=== PATIENT | male | born 1930 | race Caucasian/White ===

== ENCOUNTER 2016-08-02 06:20 | Inpatient (IN) ==
[2016-08-02] MEDS ORDERED: fentaNYL 100 MCG/2 ML VIAL IV ONE (07:23)
[2016-08-02] MEDS ORDERED: MIDAZOLAM 2 MG/2 ML VIAL IV ONE (07:23)
[2016-08-02] MEDS ORDERED: SODIUM CHLORIDE 0.45% 1,000 ML IV SCH (07:30)
[2016-08-02 07:44] LABS: Basophils % 0.3 % (0.0-0.8); Eosinophils # 0.2 10*3/uL (0.0-0.87); Hematocrit 26.9 VOL% (42.0-52.0); Hemoglobin 7.8 GM/DL (14.0-18.0); Immature Granulocytes % 0.3 %; Immature Granulocytes Absolute 0.02 #; Lymphocytes # 1.1 10*3/uL (1.4-4.0); Lymphocytes % 19.8 % (21.2-54.2); Mean Corpuscular Hemoglobin 26 PG (27-34); Mean Corpuscular Volume 87.9 FL (87-102); Mean Platelet Volume 8.7 FL (9.6-12.0); Monocytes # 0.7 10*3/uL (0.11-0.8); Monocytes % 12.7 % (1.7-12.7); Neutrophils # 3.6 10*3/uL (1.4-7.4); Neutrophils % 62.9 % (38.7-73.9); Platelet Count 308 T/CUMM (130-400); Red Blood Count 3.06 MC/CUMM (3.8-5.5); Red Cell Distribution Width 15.8 % (9.3-17.3); White Blood Count 5.8 T/CUMM (4-12)
[2016-08-02 07:56] LABS: PT Patient Result 10.3 SECS; Partial Thromboplastin Time 27.5 SECS (0-40)
[2016-08-02 08:22] LABS: Calcium 8.1 MG/DL (8.5-10.1); Osmolality,Calculated 283.3 MOS/KG (273-304); Potassium 4.2 MMOL/L (3.5-5.1)
[2016-08-02] MEDS ORDERED: DIAZEPAM 5 MG TABLET PO ONE (08:53)
--- NOTE | 2016-08-02 09:44 | IR History and Physical Update ---
IR Pre-Procedure - History and Physical H&P was reviewed, the patient examined and there: are no changes in the patients condition since last H&P was completed. Reason for procedure:: 86-year-old male, patient of Dr. Bernal, with ischemic changes right foot. Early tissue loss and nonhealing ulcers right great toe. Right calf claudication, less than 100 feet. 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 Presents for arteriogram and stenting. - Dictation Physical: refer to scanned H&P - Physical Exam Vital Signs: Last Vital Signs Temp 97.9 F 08/02/16 08:08 Pulse 66 08/02/16 08:08 Resp 20 08/02/16 08:08 BP 153/75 08/02/16 08:08 Pulse Ox 100 08/02/16 08:08 Mental Status: alert and oriented Peripheral pulses: 0: Common Femoral (R), 3+: Common Femoral (L) Wounds: Black eschar plantar aspect right great toe, discoloration of the tips of the first and second toes. - Sedation IR anesthesia plan for sedation: minimal ASA Class: III - Risks Risks: Procedures explained. Risks discussed include, but not limited to, the following:[Pain, bleeding, thrombosis, need for emergent surgery, inability to recanalize common iliac artery, need for f femorofemoral eal bypass graft] All questions answered. The following alternatives were discussed:[Femorofemoral bypass graft] Risks and benefits discussed with: patient Consent obtained from: patient Assessment and Plan - Time spent with patient Time spent with patient: Less than 30 minutes (1) Peripheral arterial disease Status: Acute Assessment and plan: Severe right lower extremity PAD with early tissue loss great toe. Plan: Abdominal aortogram with runoff. Attempt recanalization right common iliac artery with stenting. Current Visit: Yes
[2016-08-02] MEDS ORDERED: DIAZEPAM 5 MG TABLET ONE (11:23)
[2016-08-02] MEDS ORDERED: fentaNYL 100 MCG/2 ML VIAL ONE (13:19)
[2016-08-02] MEDS ORDERED: MIDAZOLAM 2 MG/2 ML VIAL ONE (13:19)
[2016-08-02] MEDS ORDERED: HEPARIN/NACL 0.9% 2 UNITS/ML 1,000 ML IV ONE ×2 (13:20→14:14)
[2016-08-02] MEDS ORDERED: HEPARIN 5,000 UNIT/1 ML VIAL ONE (13:55)
[2016-08-02] MEDS ORDERED: HEPARIN 5,000 UNIT/1 ML VIAL IV ONE (13:57)
--- NOTE | 2016-08-02 14:52 | Post Interventional Procedure ---
Pre-op diagnosis: Right common iliac artery occlusion Post-op diagnosis: same Procedure: recannulized right LEON w/ kissing bilateral LEON stents BLE runoff angio Contrast: Visi 320, 135 cc Flouroscopy: 7.9 min Radiologist: Juvenal Hutchison Anesthesia: conscious sedation Medications: Versed 1 mg, fentanyl 25 mcg Total Sedation Time: 59 min Specimens: none sent Estimated blood loss: none Complications: none Condition: stable Description/Findings: Recannalized right LEON, kissing stents both LEON w/ 12 x 60 Luminexx on the right , and a 12 x 40 Luminexx on the left Assessment and Plan - Time spent with patient Time spent with patient: Greater than 30 minutes (1) Peripheral arterial disease Status: Acute Assessment and plan: Severe right lower extremity PAD with early tissue loss great toe. Plan: Abdominal aortogram with runoff. Attempt recanalization right common iliac artery with stenting. Postop: Plavix 75 mg PO QD x 90 days Current Visit: Yes
--- NOTE | 2016-08-02 16:58 | Interventional Radiology Rpt ---
IR angio Ext BI, IR stent graft place iliac, IR stent graft place iliac Indication: Right common iliac artery occlusion. Right calf claudication, chronic ischemic changes right great toe with nonhealing dry gangrene ulcer. ABDOMINAL AORTOGRAM WITH BILATERAL LOWER EXTREMITY RUNOFF, BILATERAL COMMON ILIAC ARTERY STENTS Description: A formal timeout was performed. Maximum sterile barrier technique was instituted. Right common femoral artery is not palpable. Sonographic evaluation shows it to be patent and compressible. The right common femoral artery was accessed with a micropuncture needle using sonographic guidance. Captured sonographic image was obtained documenting needle position in the artery. Needle was exchanged over wire for a sheath. Retrograde arteriogram of the right pelvis was then performed confirming occlusion of the right common iliac artery. Kumpe catheter and Bentson wire were then used to carefully probe the occluded segment. With very little difficulty, the Kumpe catheter was advanced into the distal abdominal aorta, position confirmed with an arteriogram. Arteriogram performed showed total occlusion of the right common iliac artery with a small meniscus below the aortic bifurcation suggesting a single stent (nonkissing stent technique) may be adequate. The Kumpe catheter was removed over an Amplatz wire. Heparin 3000 units was administered. The occluded segment was crossed with a 12 x 60 mm Luminexx stent. The stent was partially deployed and then seated against the ostium of the right common iliac artery. The remainder of the stent was deployed at which point the stent migrated slightly cephalad flowering across 80% of the ostium of the left common iliac artery. The stent was then angioplastied with a 10 mm balloon during which time, gentle traction on the stent failed to draw it further into the common iliac artery. However, post angioplasty arteriogram was performed showing the stent to be widely patent with excellent inflow to the right femoral system now present. The left common femoral artery was then studied with ultrasound and shown to be patent and compressible. It was accessed with a micropuncture needle using sonographic guidance. Captured sonographic image documents the position of the needle. Needle was exchanged over a wire for a sheath. Using a Kumpe catheter and Bentson wire, the wire and catheter were advanced into the distal aorta remaining to the left of the leading edge of the earlier placed stent. The Kumpe catheter was removed and over a Bentson wire, the 10 mm balloon was partially inflated and advanced across the origin of the stent confirming that the wire is external to the stent and does not pass through an interstices. After removing the balloon, a 12 x 40 mm Luminexx stent was advanced from the left groin and deployed. Kissing angioplasty was then performed at the aortic bifurcation to secure both stents in satisfactory positioning. The element of the right common iliac artery stent that overshadows the left common iliac ostium was now shifted midline due to radial force from the newly placed left [employer] stent. Abdominal aortogram was then performed with runoff to the feet. Access at both groins was removed and hemostasis achieved with successfully deployed bilateral ProGlide closure devices. Palpable bilateral posterior tibial and dorsalis pedis pulses were present at the conclusion of the case. Contrast: Visipaque 320, 135 cc. Fluoroscopy: 7.9 minutes. Conscious sedation: Under physician supervision, Versed 1 mg, fentanyl 25 mcg were administered intravenously for conscious sedation. Vital signs, including pulse oximetry, heart rate and blood pressure, continuously monitored by nursing present in the room. Physicians spent 59 minutes [id number] sedation time with the patient. Impression: 1. Successful recanalization of right common iliac artery occlusion. Placement of kissing stents, 12 x 60 mm Luminexx on the right and 12 x 40 mm Luminexx on the left. 2. Widely patent femoropopliteal system bilaterally. In the left calf, three-vessel runoff to left foot is confirmed. In the right calf, there is proximal occlusion of the anterior tibialis artery but robust two-vessel inflow to the right foot is present via the peroneal and posterior tibialis arteries. 3. Successful deployment of bilateral Perclose devices in each groin for hemostasis. PROCEDURE INTERPRETED AT [facility] DEPARTMENT OF RADIOLOGY Final Report Signed by: Juvenal Hutchison M.D.
[2016-08-02 17:09] LABS: HIV Antigen/Antibody Result Nonreactive (Nonreactive); Hepatitis B Surface Ag Quant < 0.10 Index; Hepatitis B Surface Ag Result Negative (Negative); Hepatitis C Virus Ab Quant 0.09 Index; Hepatitis C Virus Ab Result Negative (Negative)
[2016-08-02] MEDS: CLOPIDOGREL 75 MG TABLET PO SCH (17:12)
[2016-08-02] MEDS ORDERED: CYCLOBENZAPRINE 10 MG TABLET PO PRN (19:59)
--- NOTE | 2016-08-02 20:19 | Family Practice History&Phys ---
Assessment and Plan (1) Peripheral arterial disease Status: Acute Assessment and plan: Patient is now status post recannulization right common iliac artery with excellent response. No complications noted Current Visit: Yes (2) Iron deficiency anemia Status: Acute Assessment and plan: We will order additional studies and start on iron therapy Current Visit: Yes (3) prostate carcinoma Status: Chronic Assessment and plan: Stable at present Current Visit: No (4) Acute on chronic renal failure Status: Chronic Assessment and plan: Stable at present Current Visit: No (5) CAD (coronary artery disease) Status: Chronic Assessment and plan: Stable on present medications Current Visit: No (6) History of coronary artery stent placement Status: Chronic Assessment and plan: Stable at present Current Visit: No (7) Hyperlipidemia Status: Chronic Assessment and plan: Stable on present medication Current Visit: No (8) hypertension Status: Chronic Assessment and plan: Stable on present medication Current Visit: No (9) urinary incontinence Status: Chronic Assessment and plan: Stable Current Visit: No History of Present Illness Chief complaint: Peripheral vascular disease and anemia History of present illness: Mr. Apodaca is a 86 year old male Patient 86-year-old white male well-known to me who was referred in for severe vascular insufficiency of the right leg. He is now status post recannulization procedure of the right common iliac artery by Dr. Hutchison. Procedure was successful and now has good pulses in right lower extremity. The patient has area of skin breakdown involving the right great toe the second and third digits on the right foot. He has an area of eschar formation over the solar aspect of the right great toe. The other areas are more superficial. No signs of infection. The patient was noted to have a change in his hemoglobin and hematocrit on admission. Most recent hemoglobin in the office was a 10.6 with hematocrit of 32.9. Hemoglobin today is a 7.8. Patient is complaining of some chronic abdominal pain. He has recently seen Dr. Yañez in his office. They elected not to do any further procedures but patient was not as anemic as he is at present. In view of degree of anemia will order additional studies and follow with Dr. Hutchison. Will recheck CBC in a.m. and obtain an abdominal CT. Will start wound care on areas of skin breakdown on right foot. Home Medications Medication Instructions Recorded Confirmed Type Aspirin [Ecotrin] 325 mg PO DAILY 01/02/15 08/02/16 History Carvedilol [Coreg] 12.5 mg PO BID 01/02/15 08/02/16 History Cyclobenzaprine [Flexeril] 10 mg PO BEDTIME PRN 01/02/15 08/02/16 History Diclofenac Sodium 75 mg PO BID 01/02/15 08/02/16 History Simvastatin [Zocor] 20 mg PO BEDTIME 01/02/15 08/02/16 History Fosinopril [Monopril] 20 mg PO DAILY 08/08/15 08/02/16 History Furosemide Tab [Lasix Tab] 20 mg PO DAILY 08/08/15 08/02/16 History amLODIPine [Norvasc] 5 mg PO DAILY 08/08/15 08/02/16 History Ranitidine Tab [Zantac Tab] 150 mg PO BID 03/11/16 08/02/16 History Omeprazole 40 mg PO DAILY 07/30/16 08/02/16 History Clopidogrel [Plavix] 75 mg PO DAILY #30 tablet 08/03/16 Rx Ferrous Sulfate Tab [Feosol 325 mg PO BID #60 tablet 08/03/16 Rx Original Tab] Folic Acid Tab 1 mg PO DAILY #30 tablet 08/03/16 Rx HYDROcodone/ACETAMIN 5-325 [[place] 2 tablet PO Q4H PRN #30 tablet 08/03/16 Rx 5-325] Mupirocin 2% Oint [Bactroban 2% 1 applic TOP BID #30 unit 08/03/16 Rx Oint] Allergies Allergy/AdvReac Type Severity Reaction Status Date / Time No Known Allergies Allergy Verified 07/30/16 15:05 Medical,Surgical,& Family Hx - Medical History Cardio: History of: CHF (/o lv syst dysfx), CAD (h/o coronary stents), Hypertension, MA (1987), Cardiovascular Problems (stents; 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 last visit 04/2016.) Neurology: History of: Vertigo (Cleared up at present) No history of: Seizures HEENT: History of: Ear Problem (HARD OF HEARING; JOHNATHON HEARING AIDS.), Eye Problem (WEARS GLASSES/Glasses), Dental Problems (UPPER IMPLANTS) No history of: Glaucoma, Oral Cancer, HEENT Problems Endocrine: History of: Dyslipidemia Rheumatology: History of;: Rheumatoid Arthritis Respiratory: No history of: Pneumonia (Pneum Vac 2014), Respiratory Problems (Flu Vac Jan 2016; SOB) Renal: History of: Renal Failure Genitourinary: History of: Bladder Problem (INCONTINENCE), Prostate Problems ( cancer) Gastrointestinal: History of: GERD, GI Problems (OCCASIONAL CONSTIPATION) Musculoskeletal: History of: Back/Neck Problems (NECK SPASMS), Degenerative Disk Disease, Musculoskeletal Problems (ARTHRITIS) No history of: Amputation Hematology: History of: Anemia Other: History of: Cancer (Prostate; Skin), Miscellaneous Medical Problems (PT STATES PAIN AND DISCOLORATION IN RT GREAT TOE AND 2ND TOE.) No history of: Anesthesia Reactions - Surgical History Cardiac Surgeries: Sugical HX of: Cardiac Catheterization (coronary stents x3) Thoracic Surgeries: Patient denies;: Organ Transplant, Lobectomy Neurologic Surgeries: Patient denies: Neurologic Surgery HEENT Surgeries: Patient denies: Eye Surgery (02/13/16 Sched for Cataract Lt ), Thyroid Surgery, Tonsilectomy & Adenoidectomy Abdominal Surgeries: Surgical HX of: Cholecystectomy (08/2015), Colonoscopy, EGD Patient denies: Abdominal Surgery, Appendectomy, Gastric Bypass Surgery, Hernia Repair Reproductive Surgeries: Surgical HX of;: Prostate Surgery (removed 1989) Orthopedic Surgeries: Surgical HX of;: Orthopedic Surgery (Rt Arm Fx) Patient denies;: Implanted Devices, Spinal Surgery, Total Hip Replacement, Total Knee Replacement - Family History Family History: Reports;: Family Cancer (dad lung), Family Heart Disease, Family Hypertension (FATHER) - Social History Smoking Status: Never smoker Frequency of Alcohol Use: None Type of Drug Use: None Marital Status: Lives With:: Spouse Functional capacity: independent ambulation Exam - Constitutional Vitals: Period Temp Pulse Resp BP Sys/Pickering Pulse Ox Last 24 Hr 97.9 F 64-80 14-20 126-154/58-81 92-100 General appearance: no acute distress - Head Head exam: Present: normal inspection - Eye Pupils: Present: QING - ENT ENT exam: Present: normal exam - Neck Neck exam: Present: normal inspection - Respiratory Respiratory exam: Present: clear to auscultation bilaterally - Cardiovascular Cardiovascular exam: Present: irregular rhythm - GI/Abdominal GI/Abdominal exam: Present: normal bowel sounds, psoas sign - Extremities Exam Extremities exam: Present: other (Full range of motion in all joints. Patient has an area of skin breakdown on the big toe second and third digit right foot) - Back Exam Back exam: Present: normal inspection - Neurological Exam Neurological exam: Present: alert, oriented X3 - Psychiatric Psychiatric exam: Present: normal affect - Skin Skin exam: Present: normal color Results - Labs CBC & BMP: 08/03/16 03:35 08/03/16 03:35
[2016-08-02] MEDS ORDERED: SIMVASTATIN 20 MG TABLET PO SCH (21:00)
[2016-08-02] MEDS ORDERED: ZALEPLON 5 MG CAPSULE PO SCH (21:00)
[2016-08-02] MEDS: DICLOFENAC SODIUM 75 MG TABLET PO SCH (21:35)
[2016-08-02] MEDS: CARVEDILOL 12.5 MG TABLET PO SCH (21:35)
[2016-08-03 04:31] LABS: Basophils % 0.6 % (0.0-0.8); Eosinophils # 0.2 10*3/uL (0.0-0.87); Eosinophils % 2.3 % (0.00-10.9); Hematocrit 26.2 VOL% (42.0-52.0); Hemoglobin 7.9 GM/DL (14.0-18.0); Immature Granulocytes % 0.6 %; Immature Granulocytes Absolute 0.04 #; Lymphocytes # 1.3 10*3/uL (1.4-4.0); Mean Corpuscular HGB Conc 30.2 GM/DL (32-36); Mean Corpuscular Hemoglobin 26 PG (27-34); Mean Corpuscular Volume 84.8 FL (87-102); Mean Platelet Volume 9.1 FL (9.6-12.0); Monocytes # 0.9 10*3/uL (0.11-0.8); Monocytes % 13.1 % (1.7-12.7); Neutrophils # 4.6 10*3/uL (1.4-7.4); Neutrophils % 65.4 % (38.7-73.9); Platelet Count 307 T/CUMM (130-400); Red Blood Count 3.09 MC/CUMM (3.8-5.5); Red Cell Distribution Width 15.7 % (9.3-17.3)
[2016-08-03 05:12] LABS: Alanine Aminotransferase 13 U/L (16-61); Albumin 2.4 G/DL (3.4-5.0); Alkaline Phosphatase 65 U/L (45-117); Aspartate Amino Transferase 12 U/L (0-37); Bilirubin,Total < 0.39 MG/DL (0.2-1.0); Blood Urea Nitrogen 17 MG/DL (7-18); Calcium 8.2 MG/DL (8.5-10.1); Cholesterol 107 MG/DL (50-200); Ferritin 20.9 ng/ml (26-388); Free T4 (Free Thyroxine) 0.94 NG/DL (0.76-1.46); Glucose 99 MG/DL (74-106); HDL Cholesterol 44 MG/DL (40-60); Osmolality,Calculated 284.1 MOS/KG (273-304); Potassium 3.9 MMOL/L (3.5-5.1); Risk Ratio 2.43; Sodium 142 MMOL/L (136-145); Total Protein 4.9 G/DL (6.4-8.3); Triglycerides 111 MG/DL (2-150); VLDL CHOLESTEROL 22.2 MG/DL
[2016-08-03 05:16] LABS: Folate 3.7 NG/ML (5.4-24.0); Vitamin B12 265 PG/ML (211-911)
[2016-08-03 08:23] LABS: Hemoglobin A1 (Alkaline) 97.5 % (96.5-98.5); Hemoglobin A2 (Alkaline) 2.5 % (1.5-3.5)
[2016-08-03] MEDS ORDERED: MUPIROCIN 2% OINT 22 GM TUBE TOP SCH (09:00)
[2016-08-03] MEDS ORDERED: ASPIRIN EC 325 MG TABLET PO SCH (09:00)
[2016-08-03] MEDS ORDERED: FOSINOPRIL 20 MG TABLET PO SCH (09:00)
[2016-08-03] MEDS ORDERED: amLODIPine 5 MG TABLET PO SCH (09:00)
[2016-08-03] MEDS ORDERED: COLLAGENASE OINT 30 GM TUBE TOP SCH (09:00)
[2016-08-03] MEDS ORDERED: FUROSEMIDE 20 MG TABLET PO SCH (09:00)
[2016-08-03] MEDS: CLOPIDOGREL 75 MG TABLET PO SCH (09:06)
[2016-08-03] MEDS: CARVEDILOL 12.5 MG TABLET PO SCH (09:07)
[2016-08-03] MEDS: DICLOFENAC SODIUM 75 MG TABLET PO SCH (09:07)
[2016-08-03 09:37] LABS: Sedimentation Rate-Westergren 73 MM/HR (0-20)
--- NOTE | 2016-08-03 09:59 | Progress Note ---
Assessment and Plan - Time spent with patient Time spent with patient: Less than 30 minutes (1) Peripheral arterial disease Status: Acute Assessment and plan: Severe right lower extremity PAD with early tissue loss great toe. Plan: Abdominal aortogram with runoff. Attempt recanalization right common iliac artery with stenting. Postop: Plavix 75 mg PO QD x 90 days 10:00 @ 08/03/16: From an IR standpoint, patient okay for discharge. Plavix 75 mg daily for 90 days minimum. Recommend outpatient wound care for issues regarding right great toe. High likelihood for some minimal tissue loss at the tip of the first and second toes. Please call with questions. Current Visit: Yes Family Medicine PN Sub Interval history: No adverse vascular events overnight. Tolerating oral intake, with mild abdominal pain this morning. GI to see. Anemia workup pending. Exam (Progress Note) - Constitutional Vitals: Period Temp Pulse Resp BP Sys/Pickering Pulse Ox Last 24 Hr 98.7 F-99.2 F 64-80 14-20 109-154/58-81 92-96 General appearance: normal weight, no acute distress - Head Head exam: Present: normal inspection, normocephalic - GI/Abdominal GI/Abdominal exam: Present: soft - Extremities Exam Extremities exam: Present: other (2+ right DP and PT pulse. Both groins are unremarkable.) Results - Labs CBC & BMP: 08/03/16 03:35 08/03/16 03:35 Lab Results: I have reviewed the past 24 hour labs
--- NOTE | 2016-08-03 13:26 | Discharge Summary ---
Hospital Course - Hospital Course Hospital Course: istory of present illness: Mr. Apodaca is a 86 year old male Patient 86-year-old white male well-known to me who was referred in for severe vascular insufficiency of the right leg. He is now status post recannulization procedure of the right common iliac artery by Dr. Hutchison. Procedure was successful and now has good pulses in right lower extremity. The patient has area of skin breakdown involving the right great toe the second and third digits on the right foot. He has an area of eschar formation over the solar aspect of the right great toe. The other areas are more superficial. No signs of infection. The patient was noted to have a change in his hemoglobin and hematocrit on admission. Most recent hemoglobin in the office was a 10.6 with hematocrit of 32.9. Hemoglobin today is a 7.8. Patient is complaining of some chronic abdominal pain. He has recently seen Dr. Yañez in his office. They elected not to do any further procedures but patient was not as anemic as he is at present. In view of degree of anemia will order additional studies and follow with Dr. Hutchison. Will recheck CBC in a.m. and obtain an abdominal CT. Will start wound care on areas of skin breakdown on right foot. Hospital course-patient was admitted and recannulization procedure was performed by Dr. Hutchison. Patient has had an with hematocrit of 26.2 . These are stable from yesterday. Excellent response has good peripheral pulses and extremity is warm. He was noted to have a increased anemia on this admission compared to my previous labs. I had ordered repeat labs and studies to help determine whether we need to do more aggressive evaluation of this. His a.m. hemoglobin is a 7.9. After reviewing other studies I feel the anemia is more likely secondary to a combination of iron deficiency and folate deficiency. Patient states that he has had very poor appetite because of his leg pain. States she has only been eating 1 meal a day and has had limited intake. This would also be compatible with findings. No evidence any bleeding. He actually saw Dr. Yañez in the last 3 weeks. His stools were negative and found no indication to do further GI studies. His other studies are unremarkable. Does have 3 cm area of eschar formation on the sole of the right great toe. Has some superficial skin breakdown on the dorsum of the right great toe and the dorsum of the second and third digit. I had planned on starting him on a topical debriding agent for the eschar formation. Patient has limited income and states he cannot afford this prescription. I feel these wounds will heal now that he has adequate blood supply. Will treat with antibiotics to prevent infection plan to recheck in the office on Saturday of next week. If necessary I will manually debrided the eschar formation and/or refer to surgery. Patient states he would prefer to give it time to heal which it should do on its own. Will have patient call or return to the emergency room condition worsening problems develop. Diagnosis - Discharge Diagnosis (1) Peripheral arterial disease Status: Acute (2) Iron deficiency anemia Status: Acute (3) Acute on chronic renal failure Status: Chronic (4) CAD (coronary artery disease) Status: Chronic (5) prostate carcinoma Status: Chronic (6) History of coronary artery stent placement Status: Chronic (7) Hyperlipidemia Status: Chronic (8) hypertension Status: Chronic (9) urinary incontinence Status: Chronic Discharge Plan - Discharge Data Disposition: Disch To Home/Self Care Condition at Discharge: Stable Discharge Diet: advance to your usual diet Activity: resume usual activities as tolerated Hygiene: no restrictions Weight Bearing at Discharge: weight bear as tolerated Contact your physician if you experience:: fever over 101, Redness or swelling, Shortness of breath - Discharge Medications New Clopidogrel [Plavix] 75 mg PO DAILY #30 tablet Ferrous Sulfate Tab [Feosol Original Tab] 325 mg PO BID #60 tablet HYDROcodone/ACETAMIN 5-325 [[place] 5-325] 2 tablet PO Q4H PRN #30 tablet PRN Reason: Pain Moderate (4-7) Mupirocin 2% Oint [Bactroban 2% Oint] 1 applic TOP BID #30 unit Folic Acid Tab 1 mg PO DAILY #30 tablet Continue Carvedilol [Coreg] 12.5 mg PO BID Diclofenac Sodium 75 mg PO BID Cyclobenzaprine [Flexeril] 10 mg PO BEDTIME PRN PRN Reason: Spasms Simvastatin [Zocor] 20 mg PO BEDTIME Aspirin [Ecotrin] 325 mg PO DAILY amLODIPine [Norvasc] 5 mg PO DAILY Furosemide Tab [Lasix Tab] 20 mg PO DAILY Fosinopril [Monopril] 20 mg PO DAILY Ranitidine Tab [Zantac Tab] 150 mg PO BID Omeprazole 40 mg PO DAILY Discontinued Cilostazol [Pletal] 100 mg PO BID - Follow Up or Referral Follow Up: Monico Meraz DO [Primary Care Provider] - (Have patient call clinic on Saturday to arrange follow-up next Saturday) - Forms/Instructions Exam - Constitutional Vitals: Period Temp Pulse Resp BP Sys/Pickering Pulse Ox Last 24 Hr 98.7 F-99.6 F 64-80 14-20 102-154/53-81 92-96 General appearance: no acute distress - Eye Pupils: Present: QING - ENT ENT exam: Present: normal exam - Neck Neck exam: Present: normal inspection - Respiratory Respiratory exam: Present: clear to auscultation bilaterally - Cardiovascular Cardiovascular exam: Present: irregular rhythm - GI/Abdominal GI/Abdominal exam: Present: normal bowel sounds, soft - Extremities Exam Extremities exam: Present: normal inspection - Back Exam Back exam: Present: normal inspection - Neurological Exam Neurological exam: Present: alert, oriented X3 - Psychiatric Psychiatric exam: Present: normal affect - Skin Skin exam: Present: normal color Discharge Results Procedures and tests throughout hospitalization: Pending Orders 08/02/16 20:01 Occult Blood Other Routine Labs on day of discharge: Labs from last 24 hours 08/03/16 08/03/16 08/03/16 03:35 03:35 03:34 WBC 7.0 RBC 3.09 L Hgb 7.9 L Hct 26.2 L MCV 84.8 L MCH 26 L MCHC 30.2 L RDW 15.7 Plt Count 307 MPV 9.1 L Neut % (Auto) 65.4 Lymph % (Auto) 18.0 L Jenkins % (Auto) 13.1 H Eos % (Auto) 2.3 Baso % (Auto) 0.6 Neut # (Auto) 4.6 Lymph # (Auto) 1.3 L Jenkins # (Auto) 0.9 H Eos # (Auto) 0.2 Baso # (Auto) 0.0 Immature Gran % 0.6 Nucleated RBC % 0.0 Immature Gran # 0.04 Nucleated RBCs # 0.00 Anemia Panel Interp ESR Westergren 73 H Absolute Retic 0.1 Percent Retic 2.5 H Retic Hgb Equivalent 28.4 Hemoglobin A1 Hemoglobin A2 Hgb ELP Interp Sodium 142 Potassium 3.9 Chloride 109 H Carbon Dioxide 25 Anion Gap 11.9 BUN 17 Creatinine 1.30 GFR Calculation 54 BUN/Creatinine Ratio 13.00 Glucose 99 Calculated Osmolality 284.1 Calcium 8.2 L Magnesium 2.0 Ferritin 20.9 L Total Bilirubin < 0.39 AST 12 ALT 13 L Alkaline Phosphatase 65 Total Protein 4.9 L Albumin 2.4 L Globulin 2.5 Albumin/Globulin Ratio 0.9 L Triglycerides 111 Cholesterol 107 LDL Cholesterol 51.0 VLDL Cholesterol 22.2 HDL Cholesterol 44 Heart Disease Risk Ratio 2.43 Vitamin B12 Folate Free T4 0.94 TSH 3rd Generation 3.210 Hep Bs Antigen Hepatitis C Antibody HIV 1&2 Antigen & Ab COY (IgG-AHG) Negative COY, Polyspecific Negative 08/03/16 08/02/16 03:34 Unknown WBC RBC Hgb Hct MCV MCH MCHC RDW Plt Count MPV Neut % (Auto) Lymph % (Auto) Jenkins % (Auto) Eos % (Auto) Baso % (Auto) Neut # (Auto) Lymph # (Auto) Jenkins # (Auto) Eos # (Auto) Baso # (Auto) Immature Gran % Nucleated RBC % Immature Gran # Nucleated RBCs # Anemia Panel Interp ESR Westergren Absolute Retic Percent Retic Retic Hgb Equivalent Hemoglobin A1 97.5 Hemoglobin A2 2.5 Hgb ELP Interp Sodium Potassium Chloride Carbon Dioxide Anion Gap BUN Creatinine GFR Calculation BUN/Creatinine Ratio Glucose Calculated Osmolality Calcium Magnesium Ferritin Total Bilirubin AST ALT Alkaline Phosphatase Total Protein Albumin Globulin Albumin/Globulin Ratio Triglycerides Cholesterol LDL Cholesterol VLDL Cholesterol HDL Cholesterol Heart Disease Risk Ratio Vitamin B12 265 Folate 3.7 L Free T4 TSH 3rd Generation Hep Bs Antigen Negative Hepatitis C Antibody Negative HIV 1&2 Antigen & Ab Nonreactive COY (IgG-AHG) COY, Polyspecific DS: Provider Primary care physician: Monico Meraz DO Consults: 08/02/16 15:43 Consult to Dietitian [CONS] Routine Reason for Dietitian: Other Discharging clinician: Monico Meraz DO
[2016-08-03] MEDS ORDERED: FOLIC ACID 1 MG TABLET PO SCH (13:30)
[2016-08-03] MEDS ORDERED: FERROUS SULFATE 325 MG TABLET PO SCH (13:30)
[2016-08-03 14:20] VITALS: BP 118/50
== END 2016-08-03 15:29 | disposition home or self-care (01) | DRG 253 ==
LOC: N.RAD 06:20 → N.SDSINP 06:21 → N.2E 15:26 → EDSDCBED 15:26 → N.2E 08-03 11:05 → N.RAD 08-03 15:24
PROVIDERS: ADMIT Family Medicine; ATTEND Radiology Diagnostic Radiology

== ENCOUNTER 2017-07-29 19:56 | Inpatient (IN) ==
[2017-07-29] MEDS ORDERED: ONDANSETRON 4 MG/2 ML VIAL IV STA (20:48)
[2017-07-29] MEDS ORDERED: FUROSEMIDE 100 MG/10 ML VIAL IV STA (20:48)
[2017-07-29] MEDS ORDERED: methylPREDNISolone SOD SUC 125 MG/2 ML VIAL IV STA (20:48)
[2017-07-29] MEDS ORDERED: LIDOCAINE 2% TOP JELLY 20 ML VIAL INTRAURETH ONE (20:52)
[2017-07-29] MEDS ORDERED: ALBUTEROL 2.5 MG/3 ML NEB RESP TX SCH (21:00)
[2017-07-29 21:23] LABS: Allen Test Positive
[2017-07-29 21:24] LABS: ABG Base Excess 5.5 MMOL/L (-2.5-2.5); ABG HCO3 31.2 MMOL/L (20-26); ABG Oxygen Saturation 43.7 % (95-100); ABG PCO2 50.5 MM HG (35-48); ABG PH 7.409 (7.35-7.45); ABG TCO2 32.8 MMOL/L (23-27)
[2017-07-29 21:26] LABS: ABG PO2 28.9 MM HG (80-95)
[2017-07-29] MEDS ORDERED: FUROSEMIDE 100 MG/10 ML VIAL ONE (21:30)
[2017-07-29] MEDS ORDERED: ONDANSETRON 4 MG/2 ML VIAL ONE (21:30)
[2017-07-29] MEDS ORDERED: methylPREDNISolone SOD SUC 125 MG/2 ML VIAL ONE (21:30)
[2017-07-29 21:31] LABS: Basophils % 0.4 % (0.0-0.8); Eosinophils % 0.4 % (0.00-10.9); Hematocrit 35.3 VOL% (42.0-52.0); Hemoglobin 11.5 GM/DL (14.0-18.0); Immature Granulocytes % 3.6 %; Immature Granulocytes Absolute 0.38 #; Lymphocytes # 0.7 10*3/uL (1.4-4.0); Mean Corpuscular HGB Conc 32.6 GM/DL (32-36); Mean Corpuscular Hemoglobin 31 PG (27-34); Mean Corpuscular Volume 94.9 FL (87-102); Mean Platelet Volume 9.5 FL (9.6-12.0); Monocytes # 0.5 10*3/uL (0.11-0.8); Monocytes % 4.4 % (1.7-12.7); Neutrophils # 8.8 10*3/uL (1.4-7.4); Neutrophils % 84.2 % (38.7-73.9); Platelet Count 106 T/CUMM (130-400); Red Blood Count 3.72 MC/CUMM (3.8-5.5); Red Cell Distribution Width 19.7 % (9.3-17.3); White Blood Count 10.5 T/CUMM (4-12)
[2017-07-29 21:43] LABS: PT Patient Result 10.5 SECS
[2017-07-29 21:55] LABS: Lactic Acid 1.9 MMOL/L (0.4-2.0)
[2017-07-29 21:56] LABS: Bilirubin,Total 0.7 MG/DL (0.2-1.0); Calcium 8.8 MG/DL (8.5-10.1); Osmolality,Calculated 288.8 MOS/KG (273-304); Potassium 4.1 MMOL/L (3.5-5.1); Total Protein 6.5 G/DL (6.4-8.3)
[2017-07-29 21:57] LABS: Troponin I Only 0.299 NG/ML (0.00-0.045)
[2017-07-29 22:09] LABS: Apearance,Urine CLEAR (Clear); Bacteria,Urine Occasional /HPF (Few); Bilirubin,Urine Negative (Negative); Blood, Urine Negative (Negative); Glucose,Urine (UA) Negative (Negative); Hyaline Casts,Urine 15 /LPF (0-3); Ketones,Urine Negative (Negative); Mucus,Urine Occasional /LPF (Occasional); Nitrite,Urine Negative (Negative); Protein,Urine Negative; RBC,Urine 1 /HPF (0-4); Squamous Epithelial Cell,Urine Occasional /HPF (0-10); Urine Color Yellow (Yellow); Urine Specific Gravity 1.015 (1.001-1.035); Urine Urobilinogen < 2.0 EU/DL (0.2-1.0); WBC,Urine 3 /HPF (0-6)
[2017-07-29] MEDS ORDERED: ACETYLCYSTEINE 600 MG CAPSULE ONE (22:38)
[2017-07-29] MEDS ORDERED: SODIUM BICARBONATE 50 MEQ/50 ML SYRINGE IV ONE (22:39)
[2017-07-29] MEDS ORDERED: SODIUM BICARBONATE 50 MEQ/50 ML VIAL IV STA (22:48)
[2017-07-29] MEDS ORDERED: SODIUM CHLORIDE 0.9% 500 ML IV STA (22:48)
[2017-07-29] MEDS ORDERED: ACETYLCYSTEINE 600 MG CAPSULE PO STA (22:48)
[2017-07-29] MEDS ORDERED: MIDAZOLAM 2 MG/2 ML VIAL ONE (23:52)
[2017-07-29] MEDS ORDERED: HEPARIN/NACL 0.9% 2 UNITS/ML 500 ML IV ONE (23:52)
[2017-07-29] MEDS ORDERED: HYDROmorphone 2 MG/1 ML VIAL ONE (23:52)
[2017-07-30] MEDS ORDERED: ALTEPLASE 2 MG VIAL ONE (00:57)
[2017-07-30] MEDS ORDERED: ALTEPLASE 6 MG in SODIUM CHLORIDE 0.9% 120 ML IV SCH (01:00)
[2017-07-30] MEDS ORDERED: ONDANSETRON 4 MG/2 ML VIAL IV PRN (01:17)
[2017-07-30] MEDS ORDERED: hydrOXYzine HCL 10 MG TABLET PO PRN (01:23)
[2017-07-30] MEDS ORDERED: CYCLOBENZAPRINE 10 MG TABLET PO PRN (01:23)
[2017-07-30] MEDS ORDERED: HEPARIN DRIP 25,000 UNITS/500 ML PREMIX IV SCH ×2 (01:30)
[2017-07-30] MEDS: SODIUM CHLORIDE 0.9% 1,000 ML IV SCH ×2 (01:30)
[2017-07-30 02:14] LABS: INR 1.1; PT Patient Result 11.3 SECS; Partial Thromboplastin Time 30.8 SECS (0-40)
[2017-07-30 05:20] LABS: INR 1.1; PT Patient Result 11.4 SECS
[2017-07-30] MEDS: SODIUM CHLORIDE 0.45% 1,000 ML IV SCH (08:00)
[2017-07-30 08:32] LABS: Basophils % 0.1 % (0.0-0.8); Hemoglobin 9.8 GM/DL (14.0-18.0); Immature Granulocytes % 2.2 %; Immature Granulocytes Absolute 0.17 #; Lymphocytes # 0.4 10*3/uL (1.4-4.0); Lymphocytes % 5.1 % (21.2-54.2); Mean Corpuscular HGB Conc 32.7 GM/DL (32-36); Mean Corpuscular Hemoglobin 31 PG (27-34); Mean Corpuscular Volume 94.9 FL (87-102); Mean Platelet Volume 9.8 FL (9.6-12.0); Monocytes # 0.2 10*3/uL (0.11-0.8); Monocytes % 2.6 % (1.7-12.7); Neutrophils # 6.9 10*3/uL (1.4-7.4); Red Blood Count 3.16 MC/CUMM (3.8-5.5); Red Cell Distribution Width 19.3 % (9.3-17.3); White Blood Count 7.7 T/CUMM (4-12)
[2017-07-30 08:41] LABS: Platelet Count 82 T/CUMM (130-400)
[2017-07-30 09:01] LABS: Giant Platelets Few; Hypochromasia 1+; Ovalocytes Slight; Platelet Estimate Decreased
[2017-07-30 09:14] LABS: Calcium 7.7 MG/DL (8.5-10.1); Osmolality,Calculated 291.5 MOS/KG (273-304); Potassium 3.6 MMOL/L (3.5-5.1)
[2017-07-30] MEDS: CARVEDILOL 12.5 MG TABLET PO SCH ×2 (10:00→21:16)
[2017-07-30] MEDS: AMIODARONE 200 MG TABLET PO SCH ×2 (10:00→21:16)
[2017-07-30] MEDS ORDERED: fentaNYL 100 MCG/2 ML VIAL IV ONE (11:35)
[2017-07-30] MEDS ORDERED: MIDAZOLAM 2 MG/2 ML VIAL IV ONE (11:35)
[2017-07-30] MEDS ORDERED: BISACODYL 5 MG TABLET PO PRN (14:07)
[2017-07-30] MEDS: FERROUS SULFATE 325 MG TABLET PO SCH (16:07)
[2017-07-30] MEDS: ASPIRIN EC 325 MG TABLET PO SCH (16:07)
[2017-07-30] MEDS: OMEGA 3 ACID ETHYL ESTERS 1 GM CAPSULE PO SCH (16:07)
[2017-07-30] MEDS: LEFLUNOMIDE 10 MG TABLET PO SCH (16:07)
[2017-07-30] MEDS: PANTOPRAZOLE 40 MG TABLET PO SCH (16:08)
[2017-07-30] MEDS: guaiFENesin/DM ER 600-30 MG TABLET PO PRN (16:12)
[2017-07-30] MEDS: MIRTAZAPINE 15 MG TABLET PO SCH (21:16)
[2017-07-30] MEDS: POTASSIUM CHLORIDE 20 MEQ TABLET PO PRN ×2 (21:16→23:13)
[2017-07-30] MEDS: APIXABAN 5 MG TABLET PO SCH (21:17)
[2017-07-30] MEDS: SIMVASTATIN 20 MG TABLET PO SCH (21:17)
[2017-07-31 02:27] LABS: Hematocrit 26.9 VOL% (42.0-52.0); Hemoglobin 8.7 GM/DL (14.0-18.0); Immature Granulocytes % 1.5 %; Immature Granulocytes Absolute 0.12 #; Lymphocytes # 0.4 10*3/uL (1.4-4.0); Lymphocytes % 4.8 % (21.2-54.2); Mean Corpuscular HGB Conc 32.3 GM/DL (32-36); Mean Corpuscular Hemoglobin 31 PG (27-34); Mean Corpuscular Volume 95.1 FL (87-102); Monocytes # 0.3 10*3/uL (0.11-0.8); Monocytes % 3.3 % (1.7-12.7); Neutrophils # 7.4 10*3/uL (1.4-7.4); Neutrophils % 90.4 % (38.7-73.9); Red Blood Count 2.83 MC/CUMM (3.8-5.5); White Blood Count 8.2 T/CUMM (4-12)
[2017-07-31 02:32] LABS: Platelet Count 96 T/CUMM (130-400)
[2017-07-31 02:57] LABS: Calcium 7.6 MG/DL (8.5-10.1); Osmolality,Calculated 299.3 MOS/KG (273-304); Potassium 3.8 MMOL/L (3.5-5.1)
[2017-07-31 03:00] LABS: Band Neutrophils 7 % (0-10); Lymphocytes 3 % (20-55); Myelocytes 1 %; Segmented Neutrophils 85 % (50-85)
[2017-07-31 03:01] LABS: Elliptocytes 1+; Hypochromasia 1+; Microcytosis 1+
[2017-07-31 03:02] LABS: Polychromasia Few
[2017-07-31 03:05] LABS: Platelet Estimate Decreased; Total Cells Counted 100
[2017-07-31] MEDS: SODIUM CHLORIDE 0.45% 1,000 ML IV SCH (04:51)
[2017-07-31] MEDS: SODIUM CHLORIDE 0.9% 1,000 ML IV SCH ×2 (04:51)
[2017-07-31] MEDS: FUROSEMIDE 40 MG/4 ML VIAL IV SCH (08:59)
[2017-07-31] MEDS: ASPIRIN EC 325 MG TABLET PO SCH (08:59)
[2017-07-31] MEDS: APIXABAN 5 MG TABLET PO SCH ×2 (09:00→20:32)
[2017-07-31] MEDS: PANTOPRAZOLE 40 MG TABLET PO SCH (09:00)
[2017-07-31] MEDS: FERROUS SULFATE 325 MG TABLET PO SCH (09:00)
[2017-07-31] MEDS: AMIODARONE 200 MG TABLET PO SCH ×2 (09:01→20:30)
[2017-07-31] MEDS: OMEGA 3 ACID ETHYL ESTERS 1 GM CAPSULE PO SCH (09:01)
[2017-07-31] MEDS: CARVEDILOL 12.5 MG TABLET PO SCH ×2 (09:01→20:31)
[2017-07-31] MEDS: LEFLUNOMIDE 10 MG TABLET PO SCH (09:01)
[2017-07-31] MEDS: FOSINOPRIL 10 MG TABLET PO SCH (09:21)
[2017-07-31] MEDS: ALBUTEROL 1.25 MG/3 ML NEB RESP TX SCH ×2 (12:11→19:39)
[2017-07-31] MEDS: MIRTAZAPINE 15 MG TABLET PO SCH (20:31)
[2017-07-31] MEDS: POTASSIUM CHLORIDE 20 MEQ TABLET PO PRN (20:31)
[2017-07-31] MEDS: SIMVASTATIN 20 MG TABLET PO SCH (20:32)
[2017-08-01] MEDS: ALBUTEROL 1.25 MG/3 ML NEB RESP TX SCH ×4 (01:03→20:07)
[2017-08-01 05:26] LABS: Basophils % 0.1 % (0.0-0.8); Eosinophils % 0.1 % (0.00-10.9); Hematocrit 28.3 VOL% (42.0-52.0); Immature Granulocytes % 1.5 %; Immature Granulocytes Absolute 0.11 #; Lymphocytes # 0.4 10*3/uL (1.4-4.0); Lymphocytes % 5.6 % (21.2-54.2); Mean Corpuscular HGB Conc 31.8 GM/DL (32-36); Mean Corpuscular Hemoglobin 30 PG (27-34); Mean Corpuscular Volume 95.3 FL (87-102); Mean Platelet Volume 9.8 FL (9.6-12.0); Monocytes # 0.1 10*3/uL (0.11-0.8); Monocytes % 1.9 % (1.7-12.7); Neutrophils # 6.9 10*3/uL (1.4-7.4); Neutrophils % 90.8 % (38.7-73.9); Platelet Count 111 T/CUMM (130-400); Red Blood Count 2.97 MC/CUMM (3.8-5.5); Red Cell Distribution Width 18.8 % (9.3-17.3); White Blood Count 7.6 T/CUMM (4-12)
[2017-08-01 05:47] LABS: Band Neutrophils 1 % (0-10); Elliptocytes Few; Eosinophils 2 % (0-10); Hypochromasia 1+; Lymphocytes 5 % (20-55); Platelet Estimate Decreased; Segmented Neutrophils 88 % (50-85); Total Cells Counted 100
[2017-08-01 05:48] LABS: Microcytosis 1+
[2017-08-01 05:58] LABS: Calcium 8.1 MG/DL (8.5-10.1); Potassium 4.1 MMOL/L (3.5-5.1)
[2017-08-01 06:02] LABS: Calcium 8.1 MG/DL (8.5-10.1); Osmolality,Calculated 296.1 MOS/KG (273-304)
[2017-08-01] MEDS: SODIUM CHLORIDE 0.9% 1,000 ML IV SCH ×2 (07:29)
[2017-08-01] MEDS: SODIUM CHLORIDE 0.45% 1,000 ML IV SCH (07:29)
[2017-08-01] MEDS: FUROSEMIDE 40 MG/4 ML VIAL IV SCH (08:42)
[2017-08-01] MEDS: LEFLUNOMIDE 10 MG TABLET PO SCH (08:43)
[2017-08-01] MEDS: FERROUS SULFATE 325 MG TABLET PO SCH (08:43)
[2017-08-01] MEDS: CARVEDILOL 12.5 MG TABLET PO SCH ×2 (08:43→21:16)
[2017-08-01] MEDS: OMEGA 3 ACID ETHYL ESTERS 1 GM CAPSULE PO SCH (08:43)
[2017-08-01] MEDS: AMIODARONE 200 MG TABLET PO SCH ×2 (08:43→21:16)
[2017-08-01] MEDS: ASPIRIN EC 325 MG TABLET PO SCH (08:43)
[2017-08-01] MEDS: APIXABAN 5 MG TABLET PO SCH ×2 (08:43→21:15)
[2017-08-01] MEDS: FOSINOPRIL 10 MG TABLET PO SCH (08:43)
[2017-08-01] MEDS: PANTOPRAZOLE 40 MG TABLET PO SCH (08:43)
[2017-08-01] MEDS: SIMVASTATIN 20 MG TABLET PO SCH (21:16)
[2017-08-01] MEDS: MIRTAZAPINE 15 MG TABLET PO SCH (21:16)
[2017-08-02] MEDS: ALBUTEROL 1.25 MG/3 ML NEB RESP TX SCH ×4 (00:39→19:44)
[2017-08-02 02:30] LABS: Basophils % 0.2 % (0.0-0.8); Eosinophils % 0.2 % (0.00-10.9); Hematocrit 28.6 VOL% (42.0-52.0); Hemoglobin 9.3 GM/DL (14.0-18.0); Immature Granulocytes % 0.9 %; Immature Granulocytes Absolute 0.06 #; Lymphocytes # 0.4 10*3/uL (1.4-4.0); Mean Corpuscular HGB Conc 32.5 GM/DL (32-36); Mean Corpuscular Hemoglobin 31 PG (27-34); Mean Platelet Volume 9.7 FL (9.6-12.0); Monocytes # 0.2 10*3/uL (0.11-0.8); Monocytes % 2.4 % (1.7-12.7); Neutrophils # 5.8 10*3/uL (1.4-7.4); Neutrophils % 90.3 % (38.7-73.9); Platelet Count 121 T/CUMM (130-400); Red Blood Count 3.01 MC/CUMM (3.8-5.5); Red Cell Distribution Width 18.6 % (9.3-17.3); White Blood Count 6.4 T/CUMM (4-12)
[2017-08-02 02:48] LABS: Osmolality,Calculated 294.3 MOS/KG (273-304); Potassium 3.9 MMOL/L (3.5-5.1)
[2017-08-02 02:49] LABS: Calcium 8.3 MG/DL (8.5-10.1); Osmolality,Calculated 294.3 MOS/KG (273-304)
[2017-08-02] MEDS: SODIUM CHLORIDE 0.9% 1,000 ML IV SCH ×2 (02:52)
[2017-08-02] MEDS: SODIUM CHLORIDE 0.45% 1,000 ML IV SCH (02:52)
[2017-08-02] MEDS ORDERED: LIDOCAINE 2% 20 ML VIAL RESP TX ONE (08:30)
[2017-08-02] MEDS ORDERED: LIDOCAINE 2% VISCOUS 100 ML BOTTLE SWISH/SPIT ONE (08:30)
[2017-08-02] MEDS ORDERED: LIDOCAINE 1% 20 ML VIAL MISC INJ ONE (08:30)
[2017-08-02] MEDS ORDERED: ASPIRIN CHEW 81 MG TABLET PO ONE (11:19)
[2017-08-02] MEDS: FERROUS SULFATE 325 MG TABLET PO SCH (11:21)
[2017-08-02] MEDS: OMEGA 3 ACID ETHYL ESTERS 1 GM CAPSULE PO SCH (11:21)
[2017-08-02] MEDS: APIXABAN 5 MG TABLET PO SCH ×2 (11:21→21:54)
[2017-08-02] MEDS: PANTOPRAZOLE 40 MG TABLET PO SCH (11:21)
[2017-08-02] MEDS: AMIODARONE 200 MG TABLET PO SCH ×2 (11:22→21:55)
[2017-08-02] MEDS: LEFLUNOMIDE 10 MG TABLET PO SCH (11:22)
[2017-08-02] MEDS: CARVEDILOL 12.5 MG TABLET PO SCH ×2 (11:22→21:37)
[2017-08-02] MEDS: FUROSEMIDE 40 MG/4 ML VIAL IV SCH (11:23)
[2017-08-02] MEDS: ASPIRIN EC 325 MG TABLET PO SCH (11:24)
[2017-08-02] MEDS: FOSINOPRIL 10 MG TABLET PO SCH (11:35)
[2017-08-02] MEDS: guaiFENesin/DM ER 600-30 MG TABLET PO PRN (13:51)
[2017-08-02] MEDS ORDERED: TUBERCULIN SKIN TEST 0.1 ML SYRINGE INTRADERM ONE (17:13)
[2017-08-02] MEDS: SIMVASTATIN 20 MG TABLET PO SCH (21:54)
[2017-08-02] MEDS: MIRTAZAPINE 15 MG TABLET PO SCH (21:54)
[2017-08-03] MEDS: ALBUTEROL 1.25 MG/3 ML NEB RESP TX SCH ×4 (00:54→20:23)
[2017-08-03 04:47] LABS: Basophils % 0.3 % (0.0-0.8); Eosinophils % 0.3 % (0.00-10.9); Hematocrit 30.2 VOL% (42.0-52.0); Hemoglobin 9.6 GM/DL (14.0-18.0); Immature Granulocytes % 0.8 %; Immature Granulocytes Absolute 0.06 #; Lymphocytes # 0.4 10*3/uL (1.4-4.0); Lymphocytes % 5.6 % (21.2-54.2); Mean Corpuscular HGB Conc 31.8 GM/DL (32-36); Mean Corpuscular Hemoglobin 30 PG (27-34); Mean Platelet Volume 9.6 FL (9.6-12.0); Monocytes # 0.2 10*3/uL (0.11-0.8); Monocytes % 2.5 % (1.7-12.7); Neutrophils % 90.5 % (38.7-73.9); Platelet Count 147 T/CUMM (130-400); Red Blood Count 3.18 MC/CUMM (3.8-5.5); Red Cell Distribution Width 18.2 % (9.3-17.3); White Blood Count 7.7 T/CUMM (4-12)
[2017-08-03 05:08] LABS: Calcium 8.5 MG/DL (8.5-10.1); Osmolality,Calculated 290.5 MOS/KG (273-304); Potassium 3.6 MMOL/L (3.5-5.1)
[2017-08-03 05:44] LABS: Band Neutrophils 8 % (0-10); Elliptocytes Few; Hypochromasia 1+; Lymphocytes 4 % (20-55); Platelet Estimate Normal; Segmented Neutrophils 84 % (50-85); Total Cells Counted 100
[2017-08-03 05:45] LABS: Microcytosis Slight
[2017-08-03] MEDS: FUROSEMIDE 40 MG TABLET PO SCH (08:55)
[2017-08-03] MEDS: AMIODARONE 200 MG TABLET PO SCH ×2 (08:55→21:08)
[2017-08-03] MEDS: FERROUS SULFATE 325 MG TABLET PO SCH (08:55)
[2017-08-03] MEDS: ASPIRIN EC 81 MG TABLET PO SCH (08:55)
[2017-08-03] MEDS: APIXABAN 5 MG TABLET PO SCH ×2 (08:55→21:09)
[2017-08-03] MEDS: CARVEDILOL 12.5 MG TABLET PO SCH ×2 (08:55→21:09)
[2017-08-03] MEDS: OMEGA 3 ACID ETHYL ESTERS 1 GM CAPSULE PO SCH (08:56)
[2017-08-03] MEDS: PANTOPRAZOLE 40 MG TABLET PO SCH (08:56)
[2017-08-03] MEDS: FOSINOPRIL 10 MG TABLET PO SCH (08:56)
[2017-08-03] MEDS: LEFLUNOMIDE 10 MG TABLET PO SCH (11:10)
[2017-08-03] MEDS: MIRTAZAPINE 15 MG TABLET PO SCH (21:08)
[2017-08-03] MEDS: SIMVASTATIN 20 MG TABLET PO SCH (21:08)
[2017-08-04] MEDS: guaiFENesin/DM ER 600-30 MG TABLET PO PRN ×2 (00:01→08:50)
[2017-08-04] MEDS: ALBUTEROL 1.25 MG/3 ML NEB RESP TX SCH ×4 (00:54→21:16)
[2017-08-04] MEDS: FUROSEMIDE 40 MG TABLET PO SCH (08:47)
[2017-08-04] MEDS: LEFLUNOMIDE 10 MG TABLET PO SCH (08:47)
[2017-08-04] MEDS: CARVEDILOL 12.5 MG TABLET PO SCH ×2 (08:47→21:13)
[2017-08-04] MEDS: PANTOPRAZOLE 40 MG TABLET PO SCH (08:48)
[2017-08-04] MEDS: FOSINOPRIL 10 MG TABLET PO SCH (08:48)
[2017-08-04] MEDS: OMEGA 3 ACID ETHYL ESTERS 1 GM CAPSULE PO SCH (08:48)
[2017-08-04] MEDS: FERROUS SULFATE 325 MG TABLET PO SCH (08:48)
[2017-08-04] MEDS: AMIODARONE 200 MG TABLET PO SCH ×2 (08:48→21:12)
[2017-08-04] MEDS: APIXABAN 5 MG TABLET PO SCH ×2 (08:48→21:13)
[2017-08-04] MEDS: ASPIRIN EC 81 MG TABLET PO SCH (08:48)
[2017-08-04] MEDS: SIMVASTATIN 20 MG TABLET PO SCH (21:12)
[2017-08-04] MEDS: MIRTAZAPINE 15 MG TABLET PO SCH (21:12)
[2017-08-05] MEDS: guaiFENesin/DM ER 600-30 MG TABLET PO PRN (02:54)
[2017-08-05] MEDS: ALBUTEROL 1.25 MG/3 ML NEB RESP TX SCH ×2 (03:28→07:00)
[2017-08-05] MEDS: LEFLUNOMIDE 10 MG TABLET PO SCH (08:51)
[2017-08-05] MEDS: APIXABAN 5 MG TABLET PO SCH (08:52)
[2017-08-05] MEDS: OMEGA 3 ACID ETHYL ESTERS 1 GM CAPSULE PO SCH (08:52)
[2017-08-05] MEDS: CARVEDILOL 12.5 MG TABLET PO SCH (08:52)
[2017-08-05] MEDS: PANTOPRAZOLE 40 MG TABLET PO SCH (08:52)
[2017-08-05] MEDS: FOSINOPRIL 10 MG TABLET PO SCH (08:52)
[2017-08-05] MEDS: FUROSEMIDE 40 MG TABLET PO SCH (08:53)
[2017-08-05] MEDS: AMIODARONE 200 MG TABLET PO SCH (08:53)
[2017-08-05] MEDS: FERROUS SULFATE 325 MG TABLET PO SCH (08:53)
[2017-08-05] MEDS: ASPIRIN EC 81 MG TABLET PO SCH (08:53)
[2017-08-05 12:00] VITALS: BP 98/59
[2017-08-05] MEDS ORDERED: PHENOL 1.4% THROAT SPRAY 177 ML BOTTLE PO PRN (12:55)
[2017-08-05] MEDS ORDERED: AMOXICILLIN/CLAV 875 MG TABLET PO SCH (21:00)
== END 2017-08-05 14:17 | DRG 166 ==
LOC: EDUNIT# 19:56 → N.ED 19:56 → N.CC 23:55 → N.TELEN 08-03 03:40
PROVIDERS: ADMIT Internal Medicine Cardiovascular Disease; ATTEND Internal Medicine Cardiovascular Disease

== ENCOUNTER 2017-10-26 09:53 | Inpatient (IN) ==
[2017-10-26 10:51] LABS: Basophils % 0.1 % (0.0-0.8); Eosinophils % 0.1 % (0.00-10.9); Hematocrit 32.8 VOL% (42.0-52.0); Hemoglobin 10.3 GM/DL (14.0-18.0); Immature Granulocytes % 1.6 %; Immature Granulocytes Absolute 0.19 #; Lymphocytes # 0.8 10*3/uL (1.4-4.0); Lymphocytes % 6.5 % (21.2-54.2); Mean Corpuscular HGB Conc 31.4 GM/DL (32-36); Mean Corpuscular Hemoglobin 31 PG (27-34); Mean Corpuscular Volume 99.7 FL (87-102); Mean Platelet Volume 9.2 FL (9.6-12.0); Monocytes # 0.4 10*3/uL (0.11-0.8); Monocytes % 3.1 % (1.7-12.7); NRBC # 0.02 10*3/uL; Neutrophils # 10.4 10*3/uL (1.4-7.4); Neutrophils % 88.6 % (38.7-73.9); Platelet Count 242 T/CUMM (130-400); Red Blood Count 3.29 MC/CUMM (3.8-5.5); Red Cell Distribution Width 16.1 % (9.3-17.3); White Blood Count 11.7 T/CUMM (4-12)
[2017-10-26 11:06] LABS: Albumin 2.6 G/DL (3.4-5.0); Bilirubin,Total 0.4 MG/DL (0.2-1.0); Calcium 8.2 MG/DL (8.5-10.1); Osmolality,Calculated 290.5 MOS/KG (273-304); Potassium 3.4 MMOL/L (3.5-5.1); Total Protein 6.3 G/DL (6.4-8.3)
[2017-10-26 11:10] LABS: Troponin I Only 0.128 NG/ML (0.00-0.045)
[2017-10-27 05:31] LABS: Basophils % 0.1 % (0.0-0.8); Eosinophils # 0.1 10*3/uL (0.0-0.87); Eosinophils % 1.4 % (0.00-10.9); Hematocrit 30.6 VOL% (42.0-52.0); Hemoglobin 9.5 GM/DL (14.0-18.0); Immature Granulocytes % 1.6 %; Immature Granulocytes Absolute 0.11 #; Lymphocytes # 0.8 10*3/uL (1.4-4.0); Lymphocytes % 11.2 % (21.2-54.2); Mean Corpuscular Hemoglobin 32 PG (27-34); Mean Corpuscular Volume 101.3 FL (87-102); Mean Platelet Volume 9.5 FL (9.6-12.0); Monocytes # 0.2 10*3/uL (0.11-0.8); Neutrophils # 5.8 10*3/uL (1.4-7.4); Neutrophils % 82.7 % (38.7-73.9); Platelet Count 213 T/CUMM (130-400); Red Blood Count 3.02 MC/CUMM (3.8-5.5)
[2017-10-27 06:01] LABS: Alanine Aminotransferase 15 U/L (16-61); Albumin 2.2 G/DL (3.4-5.0); Alkaline Phosphatase 52 U/L (45-117); Aspartate Amino Transferase 11 U/L (0-37); Bilirubin,Total < 0.39 MG/DL (0.2-1.0); Blood Urea Nitrogen 33 MG/DL (7-18); Glucose 110 MG/DL (74-106); Osmolality,Calculated 288.3 MOS/KG (273-304); Potassium 4.4 MMOL/L (3.5-5.1); Sodium 141 MMOL/L (136-145); Total Protein 5.6 G/DL (6.4-8.3)
[2017-10-29 04:54] LABS: Basophils % 0.1 % (0.0-0.8); Eosinophils # 0.1 10*3/uL (0.0-0.87); Hemoglobin 9.7 GM/DL (14.0-18.0); Immature Granulocytes Absolute 0.19 #; Lymphocytes # 0.8 10*3/uL (1.4-4.0); Lymphocytes % 7.8 % (21.2-54.2); Mean Corpuscular HGB Conc 32.3 GM/DL (32-36); Mean Corpuscular Hemoglobin 31 PG (27-34); Mean Corpuscular Volume 97.1 FL (87-102); Mean Platelet Volume 9.6 FL (9.6-12.0); Monocytes # 0.3 10*3/uL (0.11-0.8); Monocytes % 2.9 % (1.7-12.7); Neutrophils # 8.3 10*3/uL (1.4-7.4); Neutrophils % 86.2 % (38.7-73.9); Platelet Count 219 T/CUMM (130-400); Red Blood Count 3.09 MC/CUMM (3.8-5.5); Red Cell Distribution Width 15.9 % (9.3-17.3); White Blood Count 9.6 T/CUMM (4-12)
[2017-10-29 05:18] LABS: Calcium 8.2 MG/DL (8.5-10.1); Osmolality,Calculated 282.8 MOS/KG (273-304)
[2017-10-31 18:19] VITALS: BP 114/59
== END 2017-10-31 16:04 | disposition home health service (06) | DRG 200 ==
LOC: N.ED 09:53 → N.EDINP 13:10 → N.TELEN 14:11
PROVIDERS: ADMIT Hospitalist; ATTEND Family Medicine

== ENCOUNTER 2017-11-01 15:46 | Inpatient (IN) ==
[2017-11-01] MEDS ORDERED: SODIUM CHLORIDE 0.9% 500 ML IV STA (16:31)
[2017-11-01 17:19] LABS: Basophils % 0.3 % (0.0-0.8); Eosinophils # 0.1 10*3/uL (0.0-0.87); Eosinophils % 0.8 % (0.00-10.9); Hematocrit 33.8 VOL% (42.0-52.0); Hemoglobin 10.6 GM/DL (14.0-18.0); Immature Granulocytes % 4.4 %; Immature Granulocytes Absolute 0.44 #; Lymphocytes # 0.5 10*3/uL (1.4-4.0); Lymphocytes % 4.7 % (21.2-54.2); Mean Corpuscular HGB Conc 31.4 GM/DL (32-36); Mean Corpuscular Hemoglobin 32 PG (27-34); Mean Corpuscular Volume 100.6 FL (87-102); Mean Platelet Volume 9.1 FL (9.6-12.0); Monocytes # 0.2 10*3/uL (0.11-0.8); Monocytes % 1.6 % (1.7-12.7); Neutrophils # 8.9 10*3/uL (1.4-7.4); Neutrophils % 88.2 % (38.7-73.9); Platelet Count 295 T/CUMM (130-400); Red Blood Count 3.36 MC/CUMM (3.8-5.5); Red Cell Distribution Width 15.2 % (9.3-17.3); White Blood Count 10.1 T/CUMM (4-12)
[2017-11-01 17:28] LABS: PT Patient Result 10.9 SECS
[2017-11-01 17:51] LABS: Albumin 2.3 G/DL (3.4-5.0); Bilirubin,Total 0.5 MG/DL (0.2-1.0); Calcium 8.3 MG/DL (8.5-10.1); Osmolality,Calculated 287.5 MOS/KG (273-304); Potassium 3.6 MMOL/L (3.5-5.1); Total Protein 6.8 G/DL (6.4-8.3)
[2017-11-01 18:09] LABS: Band Neutrophils 4 % (0-10); Eosinophils 1 % (0-10); Lymphocytes 7 % (20-55); Platelet Estimate Normal; Segmented Neutrophils 88 % (50-85)
[2017-11-01 18:10] LABS: Hypochromasia Slight; Macrocytosis Slight; Total Cells Counted 100
[2017-11-01 19:13] LABS: Apearance,Urine CLEAR (Clear); Bilirubin,Urine Negative (Negative); Blood, Urine Negative (Negative); Glucose,Urine (UA) Negative (Negative); Ketones,Urine Negative (Negative); Mucus,Urine Occasional /LPF (Occasional); Nitrite,Urine Negative (Negative); Protein,Urine Negative; RBC,Urine 1 /HPF (0-4); Squamous Epithelial Cell,Urine Occasional /HPF (0-10); Urine Color Yellow (Yellow); Urine Specific Gravity 1.008 (1.001-1.035); Urine Urobilinogen < 2.0 EU/DL (0.2-1.0); WBC,Urine 2 /HPF (0-6)
[2017-11-01] MEDS ORDERED: ACETAMINOPHEN 325 MG TABLET PO PRN (22:21)
[2017-11-01] MEDS ORDERED: ONDANSETRON 4 MG/2 ML VIAL IV PRN (22:21)
[2017-11-01] MEDS: SODIUM CHLORIDE 0.9% 1,000 ML IV SCH (22:41)
[2017-11-01] MEDS: DOCUSATE SODIUM 100 MG CAPSULE PO SCH (22:42)
[2017-11-01 23:36] LABS: Basophils % 0.4 % (0.0-0.8); Eosinophils # 0.1 10*3/uL (0.0-0.87); Eosinophils % 0.9 % (0.00-10.9); Immature Granulocytes % 2.6 %; Lymphocytes # 0.6 10*3/uL (1.4-4.0); Lymphocytes % 7.5 % (21.2-54.2); Mean Corpuscular Hemoglobin 31 PG (27-34); Mean Corpuscular Volume 100.3 FL (87-102); Monocytes # 0.3 10*3/uL (0.11-0.8); Monocytes % 3.6 % (1.7-12.7); Neutrophils # 6.7 10*3/uL (1.4-7.4); Platelet Count 233 T/CUMM (130-400); Red Blood Count 2.89 MC/CUMM (3.8-5.5); Red Cell Distribution Width 15.2 % (9.3-17.3); White Blood Count 7.8 T/CUMM (4-12)
[2017-11-02 00:06] LABS: Alanine Aminotransferase 27 U/L (16-61); Albumin 1.8 G/DL (3.4-5.0); Alkaline Phosphatase 71 U/L (45-117); Aspartate Amino Transferase 25 U/L (0-37); Bilirubin,Total < 0.39 MG/DL (0.2-1.0); Blood Urea Nitrogen 38 MG/DL (7-18); Calcium 8.3 MG/DL (8.5-10.1); Glucose 172 MG/DL (74-106); Osmolality,Calculated 291.4 MOS/KG (273-304); Potassium 3.5 MMOL/L (3.5-5.1); Sodium 140 MMOL/L (136-145); Total Protein 5.6 G/DL (6.4-8.3)
[2017-11-02 06:26] LABS: Basophils % 0.3 % (0.0-0.8); Eosinophils # 0.1 10*3/uL (0.0-0.87); Eosinophils % 1.8 % (0.00-10.9); Hemoglobin 8.5 GM/DL (14.0-18.0); Immature Granulocytes % 2.8 %; Immature Granulocytes Absolute 0.17 #; Lymphocytes # 0.6 10*3/uL (1.4-4.0); Lymphocytes % 10.1 % (21.2-54.2); Mean Corpuscular HGB Conc 31.5 GM/DL (32-36); Mean Corpuscular Hemoglobin 32 PG (27-34); Monocytes # 0.2 10*3/uL (0.11-0.8); Monocytes % 3.4 % (1.7-12.7); Neutrophils % 81.6 % (38.7-73.9); Platelet Count 213 T/CUMM (130-400); Red Cell Distribution Width 15.3 % (9.3-17.3); White Blood Count 6.2 T/CUMM (4-12)
[2017-11-02 06:58] LABS: Alanine Aminotransferase 26 U/L (16-61); Albumin 1.7 G/DL (3.4-5.0); Alkaline Phosphatase 69 U/L (45-117); Aspartate Amino Transferase 24 U/L (0-37); Bilirubin,Total < 0.39 MG/DL (0.2-1.0); Blood Urea Nitrogen 35 MG/DL (7-18); Glucose 115 MG/DL (74-106); Osmolality,Calculated 291.1 MOS/KG (273-304); Potassium 3.5 MMOL/L (3.5-5.1); Sodium 142 MMOL/L (136-145); Total Protein 5.3 G/DL (6.4-8.3)
[2017-11-02] MEDS ORDERED: hydrOXYzine HCL 10 MG TABLET PO PRN (08:06)
[2017-11-02] MEDS ORDERED: NITROGLYCERIN SL 0.4 MG TABLET SL PRN (08:06)
[2017-11-02] MEDS: PANTOPRAZOLE 40 MG TABLET PO SCH (10:30)
[2017-11-02] MEDS: AMIODARONE 200 MG TABLET PO SCH (10:30)
[2017-11-02] MEDS: DICLOFENAC 1% GEL 100 GM TUBE TOP SCH ×2 (10:32→14:50)
[2017-11-02] MEDS: predniSONE 5 MG TABLET PO SCH (10:32)
[2017-11-02] MEDS: POTASSIUM CHLORIDE 10 MEQ TABLET PO SCH (10:33)
[2017-11-02] MEDS: DOCUSATE SODIUM 100 MG CAPSULE PO SCH ×2 (10:34→20:36)
[2017-11-02] MEDS: ASPIRIN EC 81 MG TABLET PO SCH (10:34)
[2017-11-02] MEDS: APIXABAN 5 MG TABLET PO SCH ×2 (10:34→20:36)
[2017-11-02] MEDS: CARVEDILOL 12.5 MG TABLET PO SCH ×2 (10:35→20:36)
[2017-11-02] MEDS: FUROSEMIDE 40 MG TABLET PO SCH (10:35)
[2017-11-02] MEDS: LEFLUNOMIDE 10 MG TABLET PO SCH (10:37)
[2017-11-02] MEDS: FOSINOPRIL 10 MG TABLET PO SCH (10:37)
[2017-11-02] MEDS: SODIUM CHLORIDE 0.9% 1,000 ML IV SCH ×2 (18:00→20:36)
[2017-11-02] MEDS ORDERED: DICLOFENAC 1% GEL 100 GM TUBE TOP PRN (18:12)
[2017-11-02] MEDS: FUROSEMIDE 20 MG TABLET PO SCH (20:35)
[2017-11-02] MEDS: SIMVASTATIN 20 MG TABLET PO SCH (20:35)
[2017-11-03 03:50] LABS: Basophils % 0.2 % (0.0-0.8); Eosinophils # 0.1 10*3/uL (0.0-0.87); Eosinophils % 1.1 % (0.00-10.9); Hematocrit 25.6 VOL% (42.0-52.0); Hemoglobin 7.8 GM/DL (14.0-18.0); Immature Granulocytes % 3.4 %; Immature Granulocytes Absolute 0.19 #; Lymphocytes # 0.6 10*3/uL (1.4-4.0); Lymphocytes % 10.1 % (21.2-54.2); Mean Corpuscular HGB Conc 30.5 GM/DL (32-36); Mean Corpuscular Hemoglobin 31 PG (27-34); Mean Corpuscular Volume 102.8 FL (87-102); Monocytes # 0.2 10*3/uL (0.11-0.8); Monocytes % 3.1 % (1.7-12.7); Neutrophils # 4.6 10*3/uL (1.4-7.4); Neutrophils % 82.1 % (38.7-73.9); Platelet Count 208 T/CUMM (130-400); Red Blood Count 2.49 MC/CUMM (3.8-5.5); Red Cell Distribution Width 15.2 % (9.3-17.3); White Blood Count 5.5 T/CUMM (4-12)
[2017-11-03 04:18] LABS: Calcium 7.6 MG/DL (8.5-10.1); Potassium 3.8 MMOL/L (3.5-5.1)
[2017-11-03] MEDS: APIXABAN 5 MG TABLET PO SCH ×2 (09:29→21:12)
[2017-11-03] MEDS: AMIODARONE 200 MG TABLET PO SCH (09:29)
[2017-11-03] MEDS: POTASSIUM CHLORIDE 10 MEQ TABLET PO SCH (09:29)
[2017-11-03] MEDS: DOCUSATE SODIUM 100 MG CAPSULE PO SCH ×2 (09:29→21:10)
[2017-11-03] MEDS: LEFLUNOMIDE 10 MG TABLET PO SCH (09:29)
[2017-11-03] MEDS: CARVEDILOL 12.5 MG TABLET PO SCH ×2 (09:30→21:10)
[2017-11-03] MEDS: FUROSEMIDE 40 MG TABLET PO SCH (09:30)
[2017-11-03] MEDS: PANTOPRAZOLE 40 MG TABLET PO SCH (09:31)
[2017-11-03] MEDS: FOSINOPRIL 10 MG TABLET PO SCH (09:31)
[2017-11-03] MEDS: ASPIRIN EC 81 MG TABLET PO SCH (09:32)
[2017-11-03] MEDS: predniSONE 5 MG TABLET PO SCH (09:33)
[2017-11-03] MEDS: DICLOFENAC 1% GEL 100 GM TUBE TOP SCH (09:34)
[2017-11-03] MEDS: SODIUM CHLORIDE 0.9% 1,000 ML IV SCH ×2 (16:22→16:55)
[2017-11-03] MEDS ORDERED: FUROSEMIDE 20 MG/2 ML VIAL IV ONE (16:37)
[2017-11-03 16:49] LABS: Basophils % 0.3 % (0.0-0.8); Eosinophils # 0.1 10*3/uL (0.0-0.87); Eosinophils % 1.2 % (0.00-10.9); Hematocrit 28.2 VOL% (42.0-52.0); Hemoglobin 8.5 GM/DL (14.0-18.0); Immature Granulocytes % 3.6 %; Immature Granulocytes Absolute 0.23 #; Lymphocytes # 0.7 10*3/uL (1.4-4.0); Lymphocytes % 10.7 % (21.2-54.2); Mean Corpuscular HGB Conc 30.1 GM/DL (32-36); Mean Corpuscular Hemoglobin 32 PG (27-34); Mean Corpuscular Volume 104.4 FL (87-102); Mean Platelet Volume 8.8 FL (9.6-12.0); Monocytes # 0.3 10*3/uL (0.11-0.8); Neutrophils # 5.2 10*3/uL (1.4-7.4); Neutrophils % 80.2 % (38.7-73.9); Platelet Count 220 T/CUMM (130-400); Red Cell Distribution Width 15.3 % (9.3-17.3); White Blood Count 6.4 T/CUMM (4-12)
[2017-11-03 17:55] LABS: Folate 6.8 NG/ML (5.4-24.0); Vitamin B12 468 PG/ML (211-911)
[2017-11-03 17:59] LABS: Sedimentation Rate-Westergren 127 MM/HR (0-20)
[2017-11-03] MEDS: FUROSEMIDE 20 MG TABLET PO SCH (21:10)
[2017-11-03] MEDS: SIMVASTATIN 20 MG TABLET PO SCH (21:10)
[2017-11-04] MEDS: SODIUM CHLORIDE 0.9% 1,000 ML IV SCH (02:00)
[2017-11-04 04:56] LABS: Basophils % 0.4 % (0.0-0.8); Eosinophils # 0.1 10*3/uL (0.0-0.87); Eosinophils % 1.7 % (0.00-10.9); Hematocrit 25.8 VOL% (42.0-52.0); Hemoglobin 8.2 GM/DL (14.0-18.0); Immature Granulocytes % 2.6 %; Immature Granulocytes Absolute 0.14 #; Lymphocytes # 0.7 10*3/uL (1.4-4.0); Lymphocytes % 13.6 % (21.2-54.2); Mean Corpuscular HGB Conc 31.8 GM/DL (32-36); Mean Corpuscular Hemoglobin 31 PG (27-34); Mean Corpuscular Volume 97.7 FL (87-102); Mean Platelet Volume 8.9 FL (9.6-12.0); Monocytes # 0.2 10*3/uL (0.11-0.8); Neutrophils # 4.1 10*3/uL (1.4-7.4); Neutrophils % 77.7 % (38.7-73.9); Platelet Count 231 T/CUMM (130-400); Red Blood Count 2.64 MC/CUMM (3.8-5.5); Red Cell Distribution Width 15.2 % (9.3-17.3); White Blood Count 5.3 T/CUMM (4-12)
[2017-11-04 05:24] LABS: Calcium 7.7 MG/DL (8.5-10.1); Osmolality,Calculated 285.3 MOS/KG (273-304); Potassium 3.7 MMOL/L (3.5-5.1)
[2017-11-04] MEDS: POTASSIUM CHLORIDE 10 MEQ TABLET PO SCH (08:16)
[2017-11-04] MEDS: ASPIRIN EC 81 MG TABLET PO SCH (08:16)
[2017-11-04] MEDS: APIXABAN 5 MG TABLET PO SCH (08:16)
[2017-11-04] MEDS: AMIODARONE 200 MG TABLET PO SCH (08:16)
[2017-11-04] MEDS: LEFLUNOMIDE 10 MG TABLET PO SCH (08:16)
[2017-11-04] MEDS: CARVEDILOL 12.5 MG TABLET PO SCH (08:17)
[2017-11-04] MEDS: FOSINOPRIL 10 MG TABLET PO SCH (08:17)
[2017-11-04] MEDS: DOCUSATE SODIUM 100 MG CAPSULE PO SCH (08:17)
[2017-11-04] MEDS: PANTOPRAZOLE 40 MG TABLET PO SCH (08:18)
[2017-11-04] MEDS: FUROSEMIDE 40 MG TABLET PO SCH (08:18)
[2017-11-04 12:02] LABS: Hemoglobin A1 (Alkaline) 97.3 % (96.5-98.5); Hemoglobin A2 (Alkaline) 2.7 % (1.5-3.5)
[2017-11-04 16:55] VITALS: BP 131/62
== END 2017-11-04 17:15 | disposition home health service (06) | DRG 392 ==
LOC: EDUNIT# → N.ED 15:46 → N.EDINP 20:03 → N.TELEN 21:44
PROVIDERS: ADMIT Family Medicine; ATTEND Family Medicine

== ENCOUNTER 2018-12-09 01:49 | Inpatient (IN) ==
[2018-12-09] MEDS ORDERED: ONDANSETRON 4 MG/2 ML VIAL IV STA (02:11)
[2018-12-09] MEDS ORDERED: NITROGLYCERIN 2% OINT 1 INCH/GM PACK TOP STA (02:11)
[2018-12-09] MEDS ORDERED: MORPHINE 4 MG/1 ML VIAL IV STA (02:11)
[2018-12-09] MEDS ORDERED: ASPIRIN 325 MG TABLET PO STA (02:11)
[2018-12-09 02:37] LABS: Basophils # 0.1 10*3/uL (0.0-0.2); Basophils % 0.8 % (0.0-0.8); Eosinophils # 0.2 10*3/uL (0.0-0.87); Eosinophils % 2.7 % (0.00-10.9); Hematocrit 36.9 VOL% (42.0-52.0); Hemoglobin 11.6 GM/DL (14.0-18.0); Immature Granulocytes % 0.6 %; Immature Granulocytes Absolute 0.05 #; Lymphocytes # 2.1 10*3/uL (1.4-4.0); Lymphocytes % 25.6 % (21.2-54.2); Mean Corpuscular HGB Conc 31.4 GM/DL (32-36); Mean Corpuscular Volume 95.3 FL (87-102); Monocytes % 7.4 % (1.7-12.7); Neutrophils % 62.9 % (38.7-73.9); Platelet Count 199 T/CUMM (130-400); Red Blood Count 3.87 MC/CUMM (3.8-5.5); Red Cell Distribution Width 15.6 % (9.3-17.3); White Blood Count 8.3 T/CUMM (4-12)
[2018-12-09 02:46] LABS: PT Patient Result 10.6 SECS (9.6-12.2)
[2018-12-09 02:54] LABS: Albumin 3.5 G/DL (3.4-5.0); Bilirubin,Total 0.4 MG/DL (0.2-1.0); Calcium 9.3 MG/DL (8.5-10.1); Osmolality,Calculated 284.5 MOS/KG (273-304); Total Protein 6.7 G/DL (6.4-8.3)
[2018-12-09] MEDS ORDERED: POLYETHYLENE GLYCOL POWDER 17 GM PACK PO PRN (06:27)
[2018-12-09] MEDS ORDERED: NITROGLYCERIN SL 0.4 MG TABLET SL PRN (06:27)
[2018-12-09] MEDS ORDERED: hydrOXYzine HCL 10 MG TABLET PO PRN (06:27)
[2018-12-09] MEDS: SODIUM CHLORIDE 0.9% 1,000 ML IV SCH ×2 (07:00→21:10)
[2018-12-09] MEDS ORDERED: FUROSEMIDE 40 MG TABLET PO SCH (08:00)
[2018-12-09] MEDS: DICYCLOMINE 10 MG CAPSULE PO SCH ×5 (08:31→20:59)
[2018-12-09] MEDS: LEVOTHYROXINE 88 MCG TABLET PO SCH (08:31)
[2018-12-09] MEDS: CARVEDILOL 12.5 MG TABLET PO SCH ×2 (08:31→20:57)
[2018-12-09] MEDS: DOCUSATE SODIUM 100 MG CAPSULE PO SCH ×2 (08:31→20:57)
[2018-12-09] MEDS: POTASSIUM CHLORIDE 10 MEQ TABLET PO SCH (08:31)
[2018-12-09] MEDS: APIXABAN 5 MG TABLET PO SCH ×2 (08:32→20:59)
[2018-12-09] MEDS: OMEGA 3 ACID ETHYL ESTERS 1 GM CAPSULE PO SCH (08:32)
[2018-12-09] MEDS: PANTOPRAZOLE 40 MG TABLET PO SCH (08:32)
[2018-12-09] MEDS: predniSONE 5 MG TABLET PO SCH (08:32)
[2018-12-09] MEDS: DICLOFENAC 1% GEL 100 GM TUBE TOP SCH ×4 (08:33→20:59)
[2018-12-09] MEDS: ASPIRIN EC 81 MG TABLET PO SCH (08:53)
[2018-12-09] MEDS: LEFLUNOMIDE 10 MG TABLET PO SCH (08:53)
[2018-12-09] MEDS ORDERED: AMIODARONE 200 MG TABLET PO SCH (09:00)
[2018-12-09] MEDS ORDERED: LISINOPRIL 5 MG TABLET PO SCH (09:00)
[2018-12-09] MEDS ORDERED: AMIODARONE INJ 150 MG in DEXTROSE 5% 100 ML IV ONE (11:00)
[2018-12-09] MEDS ORDERED: DIGOXIN 0.5 MG/2 ML AMP IV ONE (13:14)
[2018-12-09] MEDS ORDERED: POTASSIUM CHLORIDE 20 MEQ TABLET PO ONE (14:44)
[2018-12-09] MEDS ORDERED: METOPROLOL TARTRATE 5 MG/5 ML VIAL IV ONE (14:45)
[2018-12-09] MEDS ORDERED: AMIODARONE INJ 450 MG in DEXTROSE 5% 241 ML IV SCH ×2 (15:30→21:30)
[2018-12-09] MEDS ORDERED: FUROSEMIDE 20 MG TABLET PO SCH (16:00)
[2018-12-09] MEDS: MIRTAZAPINE 15 MG TABLET PO SCH (20:57)
[2018-12-09] MEDS: SIMVASTATIN 20 MG TABLET PO SCH (20:59)
[2018-12-09] MEDS: AMIODARONE 200 MG TABLET PO SCH (20:59)
[2018-12-10] MEDS: DICYCLOMINE 10 MG CAPSULE PO SCH ×8 (00:04→22:43)
[2018-12-10 04:59] LABS: Basophils % 0.5 % (0.0-0.8); Eosinophils # 0.1 10*3/uL (0.0-0.87); Eosinophils % 1.6 % (0.00-10.9); Immature Granulocytes % 0.5 %; Immature Granulocytes Absolute 0.04 #; Lymphocytes # 2.2 10*3/uL (1.4-4.0); Lymphocytes % 28.7 % (21.2-54.2); Mean Corpuscular HGB Conc 31.3 GM/DL (32-36); Mean Platelet Volume 11.1 FL (9.6-12.0); Monocytes % 8.7 % (1.7-12.7); Platelet Count 183 T/CUMM (130-400); Red Cell Distribution Width 15.5 % (9.3-17.3); White Blood Count 7.6 T/CUMM (4-12)
[2018-12-10 05:39] LABS: Bilirubin,Total 0.4 MG/DL (0.2-1.0); Calcium 8.3 MG/DL (8.5-10.1); Osmolality,Calculated 286.3 MOS/KG (273-304); Risk Ratio 3.07; Total Protein 5.8 G/DL (6.4-8.3); VLDL CHOLESTEROL 34.2 MG/DL
[2018-12-10] MEDS ORDERED: ADENOSINE 6 MG/2 ML VIAL ONE ×2 (09:57→10:10)
[2018-12-10] MEDS ORDERED: ADENOSINE 6 MG/2 ML VIAL IV ONE ×2 (10:29→10:30)
[2018-12-10] MEDS ORDERED: PROPOFOL 200 MG/20 ML VIAL IV ONE (10:33)
[2018-12-10] MEDS ORDERED: LIDOCAINE 2% 5 ML VIAL ONE (10:33)
[2018-12-10] MEDS ORDERED: ETOMIDATE 20 MG/10 ML VIAL IV ONE (10:33)
[2018-12-10] MEDS ORDERED: PHENYLEPHRINE 1 MG/10 ML SYRINGE IV ONE (10:33)
[2018-12-10] MEDS ORDERED: ENOXAPARIN 80 MG/0.8 ML SYRINGE SUBCUT SCH (11:00)
[2018-12-10] MEDS: AMIODARONE 200 MG TABLET PO SCH ×2 (11:15→22:42)
[2018-12-10] MEDS: POTASSIUM CHLORIDE 10 MEQ TABLET PO SCH (11:15)
[2018-12-10] MEDS: DICLOFENAC 1% GEL 100 GM TUBE TOP SCH ×3 (11:15→23:32)
[2018-12-10] MEDS: PANTOPRAZOLE 40 MG TABLET PO SCH (11:15)
[2018-12-10] MEDS: METOPROLOL TARTRATE 25 MG TABLET PO SCH ×2 (11:15→23:32)
[2018-12-10] MEDS ORDERED: FUROSEMIDE 40 MG/4 ML VIAL IV ONE (15:03)
[2018-12-10] MEDS: OMEGA 3 ACID ETHYL ESTERS 1 GM CAPSULE PO SCH (16:48)
[2018-12-10] MEDS: LEVOTHYROXINE 88 MCG TABLET PO SCH (16:48)
[2018-12-10] MEDS: ASPIRIN EC 81 MG TABLET PO SCH (16:48)
[2018-12-10] MEDS: LEFLUNOMIDE 10 MG TABLET PO SCH (16:48)
[2018-12-10] MEDS: DOCUSATE SODIUM 100 MG CAPSULE PO SCH ×2 (16:49→22:44)
[2018-12-10] MEDS: predniSONE 5 MG TABLET PO SCH (16:49)
[2018-12-10] MEDS: APIXABAN 5 MG TABLET PO SCH (16:50)
[2018-12-10] MEDS: MIRTAZAPINE 15 MG TABLET PO SCH (22:42)
[2018-12-10] MEDS: SIMVASTATIN 20 MG TABLET PO SCH (22:42)
[2018-12-11] MEDS ORDERED: ASPIRIN CHEW 81 MG TABLET PO ONE ×2 (01:48→02:02)
[2018-12-11 02:07] LABS: Basophils # 0.1 10*3/uL (0.0-0.2); Basophils % 0.6 % (0.0-0.8); Eosinophils # 0.2 10*3/uL (0.0-0.87); Eosinophils % 1.7 % (0.00-10.9); Hematocrit 36.8 VOL% (42.0-52.0); Hemoglobin 11.3 GM/DL (14.0-18.0); Immature Granulocytes % 0.8 %; Immature Granulocytes Absolute 0.11 #; Lymphocytes # 5.8 10*3/uL (1.4-4.0); Lymphocytes % 40.6 % (21.2-54.2); Mean Corpuscular HGB Conc 30.7 GM/DL (32-36); Mean Corpuscular Volume 99.5 FL (87-102); Mean Platelet Volume 10.6 FL (9.6-12.0); Neutrophils % 51.3 % (38.7-73.9); Platelet Count 216 T/CUMM (130-400); Red Cell Distribution Width 15.7 % (9.3-17.3); White Blood Count 14.3 T/CUMM (4-12)
[2018-12-11 02:26] LABS: Albumin 3.2 G/DL (3.4-5.0); Bilirubin,Total 0.5 MG/DL (0.2-1.0); Calcium 8.3 MG/DL (8.5-10.1); Osmolality,Calculated 291.3 MOS/KG (273-304); Total Protein 6.5 G/DL (6.4-8.3)
[2018-12-11 02:32] LABS: Troponin I 0.348 NG/ML (0.00-0.045)
[2018-12-11] MEDS ORDERED: LIDOCAINE 1% 20 ML VIAL ONE (02:49)
[2018-12-11] MEDS ORDERED: HEPARIN/NACL 0.9% 2 UNITS/ML 1,000 ML IV ONE (02:49)
[2018-12-11] MEDS ORDERED: HYDROmorphone 2 MG/1 ML VIAL ONE (03:05)
[2018-12-11] MEDS ORDERED: MIDAZOLAM 2 MG/2 ML VIAL ONE (03:05)
[2018-12-11 03:14] LABS: Apearance,Urine CLOUDY (Clear); Bacteria,Urine Moderate /HPF (Few); Bilirubin,Urine Negative (Negative); Blood, Urine Negative (Negative); Glucose,Urine (UA) Negative (Negative); Hyaline Casts,Urine 16 /LPF (0-3); Ketones,Urine Negative (Negative); Mucus,Urine Occasional /LPF (Occasional); Nitrite,Urine Negative (Negative); Protein,Urine 100 MG/DL; RBC,Urine 3 /HPF (0-4); Squamous Epithelial Cell,Urine Occasional /HPF (0-10); Urine Color Yellow (Yellow); Urine Specific Gravity 1.009 (1.001-1.035); Urine Urobilinogen < 2.0 EU/DL (0.2-1.0); WBC,Urine 30 /HPF (0-6)
[2018-12-11] MEDS ORDERED: diphenhydrAMINE 50 MG/1 ML VIAL ONE (03:21)
[2018-12-11] MEDS ORDERED: BIVALIRUDIN 250 MG VIAL IV ONE (03:29)
[2018-12-11] MEDS ORDERED: HEPARIN/NACL 0.9% 2 UNITS/ML 500 ML IV ONE (04:29)
[2018-12-11] MEDS ORDERED: TICAGRELOR 90 MG TABLET ONE (05:34)
[2018-12-11] MEDS ORDERED: SODIUM CHLORIDE 0.9% 1,000 ML IV SCH (06:00)
[2018-12-11] MEDS: DICYCLOMINE 10 MG CAPSULE PO SCH ×7 (06:38→23:11)
[2018-12-11 07:31] LABS: CKMB % 9.1 %
[2018-12-11 07:50] LABS: Troponin I 9.35 NG/ML (0.00-0.045)
[2018-12-11] MEDS: CYCLOBENZAPRINE 10 MG TABLET PO PRN (09:22)
[2018-12-11] MEDS: TICAGRELOR 90 MG TABLET PO SCH ×2 (09:23→21:27)
[2018-12-11] MEDS: AMIODARONE 200 MG TABLET PO SCH ×2 (09:24→21:27)
[2018-12-11] MEDS: METOPROLOL TARTRATE 25 MG TABLET PO SCH ×2 (09:24→22:08)
[2018-12-11] MEDS: predniSONE 5 MG TABLET PO SCH (09:25)
[2018-12-11] MEDS: LEVOTHYROXINE 88 MCG TABLET PO SCH (09:26)
[2018-12-11] MEDS: PANTOPRAZOLE 40 MG TABLET PO SCH (09:27)
[2018-12-11] MEDS: ASPIRIN EC 81 MG TABLET PO SCH (09:27)
[2018-12-11] MEDS: POTASSIUM CHLORIDE 10 MEQ TABLET PO SCH (09:28)
[2018-12-11] MEDS: LEFLUNOMIDE 10 MG TABLET PO SCH (09:30)
[2018-12-11] MEDS: DOCUSATE SODIUM 100 MG CAPSULE PO SCH ×2 (09:31→22:19)
[2018-12-11] MEDS: OMEGA 3 ACID ETHYL ESTERS 1 GM CAPSULE PO SCH (09:33)
[2018-12-11] MEDS: DICLOFENAC 1% GEL 100 GM TUBE TOP SCH ×4 (09:55→22:19)
[2018-12-11] MEDS: CLORAZEPATE 3.75 MG TABLET PO PRN ×2 (12:43→17:26)
[2018-12-11 14:36] LABS: CKMB % 8.2 %
[2018-12-11 14:39] LABS: Troponin I 9.53 NG/ML (0.00-0.045)
[2018-12-11] MEDS: ONDANSETRON 4 MG/2 ML VIAL IV PRN (17:25)
[2018-12-11] MEDS: SIMVASTATIN 20 MG TABLET PO SCH (21:28)
[2018-12-11] MEDS: MIRTAZAPINE 15 MG TABLET PO SCH (21:28)
[2018-12-11 22:26] LABS: CKMB % 6.2 %
[2018-12-11 22:28] LABS: Troponin I 6.94 NG/ML (0.00-0.045)
[2018-12-12] MEDS: MORPHINE 4 MG/1 ML VIAL IV PRN (01:30)
[2018-12-12] MEDS ORDERED: AMIODARONE 150 MG/3 ML VIAL ONE (01:36)
[2018-12-12] MEDS ORDERED: AMIODARONE INJ 450 MG in DEXTROSE 5% 241 ML IV SCH ×2 (02:00→09:30)
[2018-12-12] MEDS: DICYCLOMINE 10 MG CAPSULE PO SCH ×8 (02:36→23:38)
[2018-12-12 04:40] LABS: Basophils % 0.4 % (0.0-0.8); Eosinophils # 0.2 10*3/uL (0.0-0.87); Eosinophils % 1.7 % (0.00-10.9); Hematocrit 30.2 VOL% (42.0-52.0); Hemoglobin 9.5 GM/DL (14.0-18.0); Immature Granulocytes % 0.8 %; Immature Granulocytes Absolute 0.07 #; Lymphocytes # 1.6 10*3/uL (1.4-4.0); Lymphocytes % 16.7 % (21.2-54.2); Mean Corpuscular HGB Conc 31.5 GM/DL (32-36); Mean Corpuscular Volume 96.2 FL (87-102); Monocytes % 9.5 % (1.7-12.7); Neutrophils % 70.9 % (38.7-73.9); Platelet Count 177 T/CUMM (130-400); Red Blood Count 3.14 MC/CUMM (3.8-5.5); Red Cell Distribution Width 15.8 % (9.3-17.3); White Blood Count 9.3 T/CUMM (4-12)
[2018-12-12 04:44] LABS: Albumin 2.8 G/DL (3.4-5.0); Bilirubin,Total 0.6 MG/DL (0.2-1.0); Calcium 8.5 MG/DL (8.5-10.1); Total Protein 5.7 G/DL (6.4-8.3)
[2018-12-12] MEDS ORDERED: ceFAZolin 1,000 MG VIAL IRRIG ONE (06:00)
[2018-12-12] MEDS ORDERED: ceFAZolin 1,000 MG in SYRINGE 1 EACH IV ONE (06:00)
[2018-12-12] MEDS ORDERED: FUROSEMIDE 40 MG/4 ML VIAL IV SCH (08:00)
[2018-12-12] MEDS ORDERED: SODIUM CHLORIDE 0.9% 1,000 ML IV SCH (09:00)
[2018-12-12] MEDS: DOCUSATE SODIUM 100 MG CAPSULE PO SCH ×2 (09:23→21:13)
[2018-12-12] MEDS: LEFLUNOMIDE 10 MG TABLET PO SCH (09:23)
[2018-12-12] MEDS: ASPIRIN EC 81 MG TABLET PO SCH (09:23)
[2018-12-12] MEDS: TICAGRELOR 90 MG TABLET PO SCH ×2 (09:23→21:14)
[2018-12-12] MEDS: METOPROLOL TARTRATE 25 MG TABLET PO SCH ×2 (09:24→21:13)
[2018-12-12] MEDS: AMIODARONE 200 MG TABLET PO SCH ×2 (09:24→21:14)
[2018-12-12] MEDS: POTASSIUM CHLORIDE 10 MEQ TABLET PO SCH (09:24)
[2018-12-12] MEDS: predniSONE 5 MG TABLET PO SCH (09:24)
[2018-12-12] MEDS: LEVOTHYROXINE 88 MCG TABLET PO SCH (09:24)
[2018-12-12] MEDS: PANTOPRAZOLE 40 MG TABLET PO SCH (09:24)
[2018-12-12] MEDS: OMEGA 3 ACID ETHYL ESTERS 1 GM CAPSULE PO SCH (09:24)
[2018-12-12] MEDS: DICLOFENAC 1% GEL 100 GM TUBE TOP SCH ×4 (12:18→21:53)
[2018-12-12] MEDS ORDERED: LIDOCAINE 1% 20 ML VIAL ONE (13:17)
[2018-12-12] MEDS ORDERED: TISSUE ADHESIVE 1 EACH APPLICATOR TOP ONE (13:17)
[2018-12-12] MEDS ORDERED: HEPARIN/NACL 0.9% 2 UNITS/ML 500 ML IV ONE (13:17)
[2018-12-12] MEDS ORDERED: MIDAZOLAM 2 MG/2 ML VIAL ONE (13:17)
[2018-12-12] MEDS ORDERED: fentaNYL 100 MCG/2 ML VIAL ONE (13:17)
[2018-12-12] MEDS ORDERED: ceFAZolin 1,000 MG VIAL ONE (13:17)
[2018-12-12] MEDS ORDERED: ISOSORBIDE MONONITRATE 30 MG TABLET PO SCH (15:30)
[2018-12-12] MEDS: AMIODARONE INJ 450 MG in DEXTROSE 5% 241 ML IV SCH (17:00)
[2018-12-12] MEDS: FUROSEMIDE 40 MG/4 ML VIAL IV SCH (17:00)
[2018-12-12] MEDS: SIMVASTATIN 20 MG TABLET PO SCH (21:14)
[2018-12-12] MEDS: CYCLOBENZAPRINE 10 MG TABLET PO PRN (21:14)
[2018-12-12] MEDS: MIRTAZAPINE 15 MG TABLET PO SCH (21:15)
[2018-12-12] MEDS: MEXILETINE 150 MG CAPSULE PO SCH (21:15)
[2018-12-12] MEDS: ceFAZolin 1,000 MG in SYRINGE 1 EACH IV SCH (21:18)
[2018-12-12] MEDS: ACETAMINOPHEN 325 MG TABLET PO PRN (22:22)
[2018-12-13] MEDS: DICYCLOMINE 10 MG CAPSULE PO SCH ×8 (01:49→22:56)
[2018-12-13] MEDS: MORPHINE 4 MG/1 ML VIAL IV PRN (02:26)
[2018-12-13] MEDS: ONDANSETRON 4 MG/2 ML VIAL IV PRN (02:48)
[2018-12-13] MEDS: AMIODARONE INJ 450 MG in DEXTROSE 5% 241 ML IV SCH ×2 (02:50→20:47)
[2018-12-13] MEDS: ceFAZolin 1,000 MG in SYRINGE 1 EACH IV SCH (06:22)
[2018-12-13] MEDS: MEXILETINE 150 MG CAPSULE PO SCH ×3 (06:25→21:31)
[2018-12-13 06:32] LABS: Basophils # 0.1 10*3/uL (0.0-0.2); Basophils % 0.5 % (0.0-0.8); Eosinophils # 0.3 10*3/uL (0.0-0.87); Hematocrit 27.9 VOL% (42.0-52.0); Hemoglobin 8.9 GM/DL (14.0-18.0); Immature Granulocytes % 0.5 %; Immature Granulocytes Absolute 0.05 #; Lymphocytes # 1.4 10*3/uL (1.4-4.0); Lymphocytes % 14.8 % (21.2-54.2); Mean Corpuscular HGB Conc 31.9 GM/DL (32-36); Mean Corpuscular Volume 95.9 FL (87-102); Mean Platelet Volume 10.2 FL (9.6-12.0); Monocytes % 8.5 % (1.7-12.7); Neutrophils % 72.7 % (38.7-73.9); Platelet Count 169 T/CUMM (130-400); Red Blood Count 2.91 MC/CUMM (3.8-5.5); Red Cell Distribution Width 15.8 % (9.3-17.3); White Blood Count 9.4 T/CUMM (4-12)
[2018-12-13 06:39] LABS: Albumin 2.5 G/DL (3.4-5.0); Bilirubin,Total 0.6 MG/DL (0.2-1.0); Calcium 8.3 MG/DL (8.5-10.1); Osmolality,Calculated 280.7 MOS/KG (273-304); Total Protein 5.8 G/DL (6.4-8.3)
[2018-12-13] MEDS ORDERED: MAGNESIUM SULF RIDER 2 GM in PREMIX 1 EACH IV ONE (07:44)
[2018-12-13 08:21] LABS: Albumin 2.7 G/DL (3.4-5.0); Bilirubin,Direct 0.17 MG/DL (0.0-0.20); Bilirubin,Indirect 0.2 MG/DL (0.0-1.0); Bilirubin,Total 0.4 MG/DL (0.2-1.0); Total Protein 5.7 G/DL (6.4-8.3)
[2018-12-13] MEDS: DOCUSATE SODIUM 100 MG CAPSULE PO SCH ×2 (09:18→21:31)
[2018-12-13] MEDS: TICAGRELOR 90 MG TABLET PO SCH ×2 (09:20→21:31)
[2018-12-13] MEDS: PANTOPRAZOLE 40 MG TABLET PO SCH (09:20)
[2018-12-13] MEDS: ISOSORBIDE MONONITRATE 30 MG TABLET PO SCH (09:20)
[2018-12-13] MEDS: OMEGA 3 ACID ETHYL ESTERS 1 GM CAPSULE PO SCH (09:21)
[2018-12-13] MEDS: predniSONE 5 MG TABLET PO SCH (09:21)
[2018-12-13] MEDS: ASPIRIN EC 81 MG TABLET PO SCH (09:21)
[2018-12-13] MEDS: POTASSIUM CHLORIDE 10 MEQ TABLET PO SCH (09:22)
[2018-12-13] MEDS: METOPROLOL TARTRATE 25 MG TABLET PO SCH ×2 (09:23→21:31)
[2018-12-13] MEDS: ALPRAZolam 0.25 MG TABLET PO PRN ×2 (09:24→21:31)
[2018-12-13] MEDS: LEFLUNOMIDE 10 MG TABLET PO SCH (09:24)
[2018-12-13] MEDS: FUROSEMIDE 40 MG/4 ML VIAL IV SCH ×2 (09:32→16:25)
[2018-12-13] MEDS: DICLOFENAC 1% GEL 100 GM TUBE TOP SCH ×4 (13:31→21:36)
[2018-12-13] MEDS: LEVOTHYROXINE 88 MCG TABLET PO SCH (14:49)
[2018-12-13] MEDS: cefTRIAXone 1,000 MG in SYRINGE 1 EACH IV SCH (16:17)
[2018-12-13] MEDS: SIMVASTATIN 20 MG TABLET PO SCH (21:31)
[2018-12-13] MEDS: MIRTAZAPINE 15 MG TABLET PO SCH (21:31)
[2018-12-13] MEDS ORDERED: AMIODARONE INJ 150 MG in DEXTROSE 5% 100 ML IV STA (23:02)
[2018-12-13] MEDS ORDERED: MAGNESIUM SULF RIDER 2 GM in PREMIX 1 EACH IV STA (23:02)
[2018-12-13] MEDS ORDERED: AMIODARONE 150 MG/3 ML VIAL ONE (23:08)
[2018-12-13] MEDS ORDERED: MAGNESIUM SULF RIDER 50 ML IV ONE (23:08)
[2018-12-14] MEDS: POTASSIUM CHLORIDE RIDER 10 MEQ in PREMIX 1 EACH IV PRN ×4 (00:28→03:19)
[2018-12-14] MEDS: DICYCLOMINE 10 MG CAPSULE PO SCH ×8 (01:14→21:23)
[2018-12-14] MEDS: MEXILETINE 150 MG CAPSULE PO SCH ×3 (06:27→21:24)
[2018-12-14 06:48] LABS: Basophils % 0.3 % (0.0-0.8); Eosinophils # 0.3 10*3/uL (0.0-0.87); Eosinophils % 2.9 % (0.00-10.9); Hematocrit 30.3 VOL% (42.0-52.0); Hemoglobin 9.7 GM/DL (14.0-18.0); Immature Granulocytes % 0.4 %; Immature Granulocytes Absolute 0.04 #; Lymphocytes # 1.2 10*3/uL (1.4-4.0); Lymphocytes % 12.7 % (21.2-54.2); Mean Corpuscular Volume 95.3 FL (87-102); Mean Platelet Volume 10.5 FL (9.6-12.0); Monocytes % 8.2 % (1.7-12.7); Neutrophils % 75.5 % (38.7-73.9); Platelet Count 169 T/CUMM (130-400); Red Blood Count 3.18 MC/CUMM (3.8-5.5); Red Cell Distribution Width 15.6 % (9.3-17.3); White Blood Count 9.4 T/CUMM (4-12)
[2018-12-14 07:03] LABS: Alanine Aminotransferase < 9 U/L (16-61); Albumin 2.6 G/DL (3.4-5.0); Alkaline Phosphatase 62 U/L (45-117); Aspartate Amino Transferase 27 U/L (0-37); Blood Urea Nitrogen 30 MG/DL (7-18); Calcium 8.3 MG/DL (8.5-10.1); Glucose 102 MG/DL (74-106); Osmolality,Calculated 282.5 MOS/KG (273-304); Total Protein 6.1 G/DL (6.4-8.3)
[2018-12-14] MEDS ORDERED: FUROSEMIDE 100 MG/10 ML VIAL ONE (08:56)
[2018-12-14] MEDS ORDERED: POTASSIUM CHLORIDE 20 MEQ TABLET PO SCH (09:00)
[2018-12-14] MEDS: LISINOPRIL 2.5 MG TABLET PO SCH ×2 (10:25→21:23)
[2018-12-14] MEDS: ASPIRIN EC 81 MG TABLET PO SCH (10:26)
[2018-12-14] MEDS: PANTOPRAZOLE 40 MG TABLET PO SCH (10:26)
[2018-12-14] MEDS: ISOSORBIDE MONONITRATE 30 MG TABLET PO SCH (10:26)
[2018-12-14] MEDS: LEFLUNOMIDE 10 MG TABLET PO SCH (10:26)
[2018-12-14] MEDS: LEVOTHYROXINE 88 MCG TABLET PO SCH (10:27)
[2018-12-14] MEDS: TICAGRELOR 90 MG TABLET PO SCH ×2 (10:27→21:23)
[2018-12-14] MEDS: METOPROLOL TARTRATE 25 MG TABLET PO SCH ×2 (10:27→21:26)
[2018-12-14] MEDS: POTASSIUM CHLORIDE 10 MEQ TABLET PO SCH (10:36)
[2018-12-14] MEDS: FUROSEMIDE 40 MG/4 ML VIAL IV SCH ×2 (10:37→16:17)
[2018-12-14] MEDS: OMEGA 3 ACID ETHYL ESTERS 1 GM CAPSULE PO SCH (10:37)
[2018-12-14] MEDS: DICLOFENAC 1% GEL 100 GM TUBE TOP SCH ×4 (10:37→21:27)
[2018-12-14] MEDS: DOCUSATE SODIUM 100 MG CAPSULE PO SCH ×2 (10:37→21:24)
[2018-12-14] MEDS ORDERED: POTASSIUM CHLORIDE 20 MEQ TABLET PO ONE (12:00)
[2018-12-14] MEDS: AMIODARONE INJ 450 MG in DEXTROSE 5% 241 ML IV SCH (13:44)
[2018-12-14] MEDS: ACETAMINOPHEN 325 MG TABLET PO PRN (15:14)
[2018-12-14] MEDS: cefTRIAXone 1,000 MG in SYRINGE 1 EACH IV SCH (16:17)
[2018-12-14] MEDS: SIMVASTATIN 20 MG TABLET PO SCH (21:25)
[2018-12-14] MEDS: MIRTAZAPINE 15 MG TABLET PO SCH (21:26)
[2018-12-15] MEDS: DICYCLOMINE 10 MG CAPSULE PO SCH ×10 (00:13→22:34)
[2018-12-15] MEDS: ACETAMINOPHEN 325 MG TABLET PO PRN (00:13)
[2018-12-15] MEDS: AMIODARONE INJ 450 MG in DEXTROSE 5% 241 ML IV SCH (04:43)
[2018-12-15 04:59] LABS: Calcium 8.5 MG/DL (8.5-10.1); Osmolality,Calculated 288.5 MOS/KG (273-304)
[2018-12-15] MEDS: MEXILETINE 150 MG CAPSULE PO SCH ×3 (06:03→21:09)
[2018-12-15] MEDS ORDERED: MAGNESIUM SULF RIDER 4 GM in PREMIX 1 EACH IV PRN (07:46)
[2018-12-15] MEDS ORDERED: MAGNESIUM SULF RIDER 2 GM in PREMIX 1 EACH IV PRN (07:46)
[2018-12-15] MEDS ORDERED: MAGNESIUM SULF RIDER 2 GM in PREMIX 1 EACH IV ONE (07:46)
[2018-12-15] MEDS ORDERED: FUROSEMIDE 20 MG/2 ML VIAL ONE (08:53)
[2018-12-15] MEDS: METOPROLOL TARTRATE 25 MG TABLET PO SCH ×2 (09:04→20:31)
[2018-12-15] MEDS: ASPIRIN EC 81 MG TABLET PO SCH (09:04)
[2018-12-15] MEDS: LEFLUNOMIDE 10 MG TABLET PO SCH (09:04)
[2018-12-15] MEDS: LEVOTHYROXINE 88 MCG TABLET PO SCH (09:04)
[2018-12-15] MEDS: TICAGRELOR 90 MG TABLET PO SCH ×2 (09:05→20:31)
[2018-12-15] MEDS: LISINOPRIL 2.5 MG TABLET PO SCH ×2 (09:05→20:31)
[2018-12-15] MEDS: OMEGA 3 ACID ETHYL ESTERS 1 GM CAPSULE PO SCH (09:05)
[2018-12-15] MEDS: PANTOPRAZOLE 40 MG TABLET PO SCH (09:05)
[2018-12-15] MEDS: ISOSORBIDE MONONITRATE 30 MG TABLET PO SCH (09:05)
[2018-12-15] MEDS: DOCUSATE SODIUM 100 MG CAPSULE PO SCH ×2 (09:05→20:31)
[2018-12-15] MEDS: POTASSIUM CHLORIDE 10 MEQ TABLET PO SCH ×3 (09:05→20:32)
[2018-12-15] MEDS: FUROSEMIDE 40 MG/4 ML VIAL IV SCH ×2 (09:05→18:45)
[2018-12-15] MEDS: DICLOFENAC 1% GEL 100 GM TUBE TOP SCH ×4 (09:09→21:48)
[2018-12-15] MEDS: AMIODARONE 200 MG TABLET PO SCH ×2 (09:10→20:31)
[2018-12-15 13:56] LABS: Calcium 8.7 MG/DL (8.5-10.1); Osmolality,Calculated 283.7 MOS/KG (273-304)
[2018-12-15] MEDS: BENZONATATE 100 MG CAPSULE PO PRN (14:40)
[2018-12-15] MEDS ORDERED: ALBUTEROL/IPRATROPIUM 3 ML NEB RESP TX SCH ×2 (15:30)
[2018-12-15] MEDS: cefTRIAXone 1,000 MG in SYRINGE 1 EACH IV SCH (18:45)
[2018-12-15] MEDS: APIXABAN 2.5 MG TABLET PO SCH ×2 (19:20→20:32)
[2018-12-15] MEDS: ALBUTEROL/IPRATROPIUM 3 ML NEB RESP TX SCH (20:25)
[2018-12-15] MEDS: MIRTAZAPINE 15 MG TABLET PO SCH (20:30)
[2018-12-15] MEDS: SIMVASTATIN 20 MG TABLET PO SCH (21:09)
[2018-12-16] MEDS: CYCLOBENZAPRINE 10 MG TABLET PO PRN ×2 (00:07→18:45)
[2018-12-16] MEDS: DICYCLOMINE 10 MG CAPSULE PO SCH ×8 (01:52→23:00)
[2018-12-16 04:17] LABS: Basophils % 0.4 % (0.0-0.8); Eosinophils # 0.4 10*3/uL (0.0-0.87); Eosinophils % 3.8 % (0.00-10.9); Hematocrit 27.6 VOL% (42.0-52.0); Hemoglobin 8.7 GM/DL (14.0-18.0); Immature Granulocytes % 1.2 %; Immature Granulocytes Absolute 0.11 #; Lymphocytes # 1.6 10*3/uL (1.4-4.0); Lymphocytes % 17.6 % (21.2-54.2); Mean Corpuscular HGB Conc 31.5 GM/DL (32-36); Mean Corpuscular Volume 93.6 FL (87-102); Mean Platelet Volume 10.3 FL (9.6-12.0); Monocytes % 9.7 % (1.7-12.7); Neutrophils % 67.3 % (38.7-73.9); Platelet Count 196 T/CUMM (130-400); Red Blood Count 2.95 MC/CUMM (3.8-5.5); Red Cell Distribution Width 15.7 % (9.3-17.3); White Blood Count 9.2 T/CUMM (4-12)
[2018-12-16 04:25] LABS: Alanine Aminotransferase < 9 U/L (16-61); Albumin 2.5 G/DL (3.4-5.0); Alkaline Phosphatase 72 U/L (45-117); Aspartate Amino Transferase 21 U/L (0-37); Blood Urea Nitrogen 38 MG/DL (7-18); Calcium 8.6 MG/DL (8.5-10.1); Glucose 98 MG/DL (74-106); Osmolality,Calculated 285.5 MOS/KG (273-304)
[2018-12-16] MEDS: POTASSIUM CHLORIDE RIDER 10 MEQ in PREMIX 1 EACH IV PRN ×3 (05:24→08:05)
[2018-12-16] MEDS: MEXILETINE 150 MG CAPSULE PO SCH ×3 (06:27→21:15)
[2018-12-16] MEDS: ALBUTEROL/IPRATROPIUM 3 ML NEB RESP TX SCH ×4 (07:21→19:56)
[2018-12-16] MEDS: METOPROLOL TARTRATE 25 MG TABLET PO SCH ×3 (07:51→20:03)
[2018-12-16] MEDS: ACETAMINOPHEN 325 MG TABLET PO PRN (07:51)
[2018-12-16] MEDS: LEFLUNOMIDE 10 MG TABLET PO SCH (08:49)
[2018-12-16] MEDS: BENZONATATE 100 MG CAPSULE PO PRN (08:50)
[2018-12-16] MEDS: LISINOPRIL 2.5 MG TABLET PO SCH ×2 (08:50→20:03)
[2018-12-16] MEDS: TICAGRELOR 90 MG TABLET PO SCH ×2 (08:50→20:05)
[2018-12-16] MEDS: AMIODARONE 200 MG TABLET PO SCH ×2 (08:50→20:04)
[2018-12-16] MEDS: LEVOTHYROXINE 88 MCG TABLET PO SCH (08:50)
[2018-12-16] MEDS: APIXABAN 2.5 MG TABLET PO SCH ×2 (08:51→20:03)
[2018-12-16] MEDS: OMEGA 3 ACID ETHYL ESTERS 1 GM CAPSULE PO SCH ×2 (08:51→09:34)
[2018-12-16] MEDS: PANTOPRAZOLE 40 MG TABLET PO SCH ×2 (08:51→09:34)
[2018-12-16] MEDS: ISOSORBIDE MONONITRATE 30 MG TABLET PO SCH (08:51)
[2018-12-16] MEDS: DOCUSATE SODIUM 100 MG CAPSULE PO SCH ×3 (08:51→20:03)
[2018-12-16] MEDS: FUROSEMIDE 40 MG/4 ML VIAL IV SCH ×2 (08:51→16:10)
[2018-12-16] MEDS: POTASSIUM CHLORIDE 10 MEQ TABLET PO SCH ×3 (08:51→20:04)
[2018-12-16] MEDS: DICLOFENAC 1% GEL 100 GM TUBE TOP SCH ×4 (09:34→21:15)
[2018-12-16] MEDS: cefTRIAXone 1,000 MG in SYRINGE 1 EACH IV SCH (16:10)
[2018-12-16] MEDS: SIMVASTATIN 20 MG TABLET PO SCH (20:03)
[2018-12-16] MEDS: MIRTAZAPINE 15 MG TABLET PO SCH (20:04)
[2018-12-17] MEDS: DICYCLOMINE 10 MG CAPSULE PO SCH ×7 (02:00→21:36)
[2018-12-17] MEDS: MEXILETINE 150 MG CAPSULE PO SCH ×3 (06:01→21:40)
[2018-12-17 06:57] LABS: Basophils # 0.1 10*3/uL (0.0-0.2); Basophils % 0.7 % (0.0-0.8); Eosinophils # 0.2 10*3/uL (0.0-0.87); Eosinophils % 2.4 % (0.00-10.9); Hemoglobin 9.2 GM/DL (14.0-18.0); Immature Granulocytes % 0.9 %; Immature Granulocytes Absolute 0.09 #; Lymphocytes # 1.6 10*3/uL (1.4-4.0); Mean Corpuscular HGB Conc 31.7 GM/DL (32-36); Mean Corpuscular Volume 93.9 FL (87-102); Monocytes % 11.6 % (1.7-12.7); Neutrophils % 68.4 % (38.7-73.9); Platelet Count 199 T/CUMM (130-400); Red Blood Count 3.09 MC/CUMM (3.8-5.5); Red Cell Distribution Width 15.7 % (9.3-17.3); White Blood Count 9.8 T/CUMM (4-12)
[2018-12-17 07:21] LABS: Calcium 8.6 MG/DL (8.5-10.1); Osmolality,Calculated 289.3 MOS/KG (273-304)
[2018-12-17] MEDS: ALBUTEROL/IPRATROPIUM 3 ML NEB RESP TX SCH ×4 (07:35→20:58)
[2018-12-17] MEDS: OMEGA 3 ACID ETHYL ESTERS 1 GM CAPSULE PO SCH (10:00)
[2018-12-17] MEDS: METOPROLOL TARTRATE 25 MG TABLET PO SCH ×2 (10:00→21:37)
[2018-12-17] MEDS: ISOSORBIDE MONONITRATE 30 MG TABLET PO SCH (10:01)
[2018-12-17] MEDS: TICAGRELOR 90 MG TABLET PO SCH ×2 (10:01→21:36)
[2018-12-17] MEDS: APIXABAN 2.5 MG TABLET PO SCH ×2 (10:01→21:38)
[2018-12-17] MEDS: PANTOPRAZOLE 40 MG TABLET PO SCH (10:01)
[2018-12-17] MEDS: POTASSIUM CHLORIDE 10 MEQ TABLET PO SCH ×3 (10:01→21:37)
[2018-12-17] MEDS: DOCUSATE SODIUM 100 MG CAPSULE PO SCH ×2 (10:02→21:37)
[2018-12-17] MEDS: LEVOTHYROXINE 88 MCG TABLET PO SCH (10:02)
[2018-12-17] MEDS: AMIODARONE 200 MG TABLET PO SCH ×2 (10:02→21:36)
[2018-12-17] MEDS: DICLOFENAC 1% GEL 100 GM TUBE TOP SCH ×4 (10:04→21:38)
[2018-12-17] MEDS: LISINOPRIL 2.5 MG TABLET PO SCH ×2 (10:04→21:36)
[2018-12-17] MEDS: FUROSEMIDE 40 MG/4 ML VIAL IV SCH (11:40)
[2018-12-17] MEDS: LEFLUNOMIDE 10 MG TABLET PO SCH (11:46)
[2018-12-17] MEDS: cefTRIAXone 1,000 MG in SYRINGE 1 EACH IV SCH (15:52)
[2018-12-17] MEDS: FUROSEMIDE 80 MG TABLET PO SCH (15:53)
[2018-12-17] MEDS: SIMVASTATIN 20 MG TABLET PO SCH (21:37)
[2018-12-17] MEDS: MIRTAZAPINE 15 MG TABLET PO SCH (21:38)
[2018-12-18] MEDS: DICYCLOMINE 10 MG CAPSULE PO SCH ×9 (00:15→23:33)
[2018-12-18] MEDS: CYCLOBENZAPRINE 10 MG TABLET PO PRN (00:15)
[2018-12-18] MEDS: POTASSIUM CHLORIDE RIDER 10 MEQ in PREMIX 1 EACH IV PRN ×3 (00:25→03:15)
[2018-12-18 06:05] LABS: Basophils # 0.1 10*3/uL (0.0-0.2); Basophils % 0.9 % (0.0-0.8); Eosinophils # 0.4 10*3/uL (0.0-0.87); Eosinophils % 4.3 % (0.00-10.9); Hematocrit 27.7 VOL% (42.0-52.0); Hemoglobin 8.7 GM/DL (14.0-18.0); Immature Granulocytes % 1.5 %; Immature Granulocytes Absolute 0.13 #; Lymphocytes # 1.4 10*3/uL (1.4-4.0); Lymphocytes % 16.7 % (21.2-54.2); Mean Corpuscular HGB Conc 31.4 GM/DL (32-36); Mean Corpuscular Volume 94.5 FL (87-102); Mean Platelet Volume 10.1 FL (9.6-12.0); Monocytes % 11.9 % (1.7-12.7); Neutrophils % 64.7 % (38.7-73.9); Platelet Count 205 T/CUMM (130-400); Red Blood Count 2.93 MC/CUMM (3.8-5.5); Red Cell Distribution Width 15.5 % (9.3-17.3); White Blood Count 8.4 T/CUMM (4-12)
[2018-12-18] MEDS: MEXILETINE 150 MG CAPSULE PO SCH ×3 (06:15→22:28)
[2018-12-18 06:21] LABS: Osmolality,Calculated 283.7 MOS/KG (273-304)
[2018-12-18] MEDS: ALBUTEROL/IPRATROPIUM 3 ML NEB RESP TX SCH ×4 (07:36→19:53)
[2018-12-18] MEDS: APIXABAN 2.5 MG TABLET PO SCH ×2 (09:31→22:27)
[2018-12-18] MEDS: POTASSIUM CHLORIDE 10 MEQ TABLET PO SCH ×3 (09:31→22:29)
[2018-12-18] MEDS: DICLOFENAC 1% GEL 100 GM TUBE TOP SCH ×4 (09:31→22:30)
[2018-12-18] MEDS: LISINOPRIL 2.5 MG TABLET PO SCH ×2 (09:31→22:28)
[2018-12-18] MEDS: DOCUSATE SODIUM 100 MG CAPSULE PO SCH ×2 (09:31→22:30)
[2018-12-18] MEDS: PANTOPRAZOLE 40 MG TABLET PO SCH (09:32)
[2018-12-18] MEDS: METOPROLOL TARTRATE 25 MG TABLET PO SCH ×2 (09:32→22:28)
[2018-12-18] MEDS: FUROSEMIDE 80 MG TABLET PO SCH ×2 (09:32→15:09)
[2018-12-18] MEDS: LEVOTHYROXINE 88 MCG TABLET PO SCH (09:32)
[2018-12-18] MEDS: OMEGA 3 ACID ETHYL ESTERS 1 GM CAPSULE PO SCH (09:32)
[2018-12-18] MEDS: AMIODARONE 200 MG TABLET PO SCH ×2 (09:32→22:30)
[2018-12-18] MEDS: ISOSORBIDE MONONITRATE 30 MG TABLET PO SCH (09:32)
[2018-12-18] MEDS: TICAGRELOR 90 MG TABLET PO SCH ×2 (09:32→22:29)
[2018-12-18] MEDS: LEFLUNOMIDE 10 MG TABLET PO SCH (11:49)
[2018-12-18] MEDS: cefTRIAXone 1,000 MG in SYRINGE 1 EACH IV SCH (15:10)
[2018-12-18] MEDS: MIRTAZAPINE 15 MG TABLET PO SCH (22:28)
[2018-12-18] MEDS: SIMVASTATIN 20 MG TABLET PO SCH (22:29)
[2018-12-19] MEDS: ALPRAZolam 0.25 MG TABLET PO PRN (01:05)
[2018-12-19] MEDS: DICYCLOMINE 10 MG CAPSULE PO SCH ×4 (02:13→12:08)
[2018-12-19 06:05] LABS: Basophils # 0.1 10*3/uL (0.0-0.2); Basophils % 0.9 % (0.0-0.8); Eosinophils # 0.5 10*3/uL (0.0-0.87); Eosinophils % 4.4 % (0.00-10.9); Hematocrit 30.9 VOL% (42.0-52.0); Hemoglobin 9.8 GM/DL (14.0-18.0); Immature Granulocytes % 2.1 %; Immature Granulocytes Absolute 0.22 #; Lymphocytes # 1.5 10*3/uL (1.4-4.0); Lymphocytes % 14.5 % (21.2-54.2); Mean Corpuscular HGB Conc 31.7 GM/DL (32-36); Mean Corpuscular Volume 95.1 FL (87-102); Mean Platelet Volume 10.5 FL (9.6-12.0); Monocytes % 9.4 % (1.7-12.7); Neutrophils % 68.7 % (38.7-73.9); Platelet Count 244 T/CUMM (130-400); Red Blood Count 3.25 MC/CUMM (3.8-5.5); Red Cell Distribution Width 15.5 % (9.3-17.3); White Blood Count 10.4 T/CUMM (4-12)
[2018-12-19 06:11] LABS: Calcium 9.4 MG/DL (8.5-10.1); Osmolality,Calculated 290.3 MOS/KG (273-304)
[2018-12-19] MEDS: ALBUTEROL/IPRATROPIUM 3 ML NEB RESP TX SCH ×2 (08:09→11:40)
[2018-12-19] MEDS: MEXILETINE 150 MG CAPSULE PO SCH (09:27)
[2018-12-19] MEDS: LISINOPRIL 2.5 MG TABLET PO SCH (09:30)
[2018-12-19] MEDS: LEVOTHYROXINE 88 MCG TABLET PO SCH (09:30)
[2018-12-19] MEDS: FUROSEMIDE 80 MG TABLET PO SCH (09:30)
[2018-12-19] MEDS: ISOSORBIDE MONONITRATE 30 MG TABLET PO SCH (09:31)
[2018-12-19] MEDS: TICAGRELOR 90 MG TABLET PO SCH (09:31)
[2018-12-19] MEDS: METOPROLOL TARTRATE 25 MG TABLET PO SCH (09:31)
[2018-12-19] MEDS: POTASSIUM CHLORIDE 10 MEQ TABLET PO SCH (09:31)
[2018-12-19] MEDS: OMEGA 3 ACID ETHYL ESTERS 1 GM CAPSULE PO SCH (09:31)
[2018-12-19] MEDS: AMIODARONE 200 MG TABLET PO SCH (09:31)
[2018-12-19] MEDS: APIXABAN 2.5 MG TABLET PO SCH (09:32)
[2018-12-19] MEDS: DOCUSATE SODIUM 100 MG CAPSULE PO SCH (09:32)
[2018-12-19] MEDS: PANTOPRAZOLE 40 MG TABLET PO SCH (09:33)
[2018-12-19] MEDS: LEFLUNOMIDE 10 MG TABLET PO SCH (10:49)
[2018-12-19] MEDS: DICLOFENAC 1% GEL 100 GM TUBE TOP SCH ×2 (10:50→12:10)
[2018-12-19 11:58] VITALS: BP 108/69
== END 2018-12-19 13:50 | disposition swing bed (61) | DRG 224 ==
LOC: EDUNIT# → EDBD → N.ED 01:49 → N.EDINP 05:00 → N.TELEN 05:54 → N.CC 12-11 01:49 → N.TELEN 12-16 17:13
PROVIDERS: ADMIT Family Medicine; ATTEND Family Medicine
PROC: CLCCHCL (ICD-10-PCS; 2018-12-11 03:30)

== ENCOUNTER 2019-03-24 16:26 | Inpatient (IN) ==
[2019-03-24] MEDS ORDERED: ACETAMINOPHEN 325 MG TABLET PO PRN (16:37)
[2019-03-24] MEDS ORDERED: ONDANSETRON 4 MG/2 ML VIAL IV PRN (16:37)
[2019-03-24] MEDS: SODIUM CHLORIDE 0.9% 1,000 ML IV SCH (18:35)
[2019-03-24] MEDS: LEVOFLOXACIN INJ 750 MG in PREMIX 1 EACH IV SCH (18:35)
[2019-03-24 18:38] LABS: Basophils % 0.4 % (0.0-0.8); Hematocrit 29.9 VOL% (42.0-52.0); Hemoglobin 9.2 GM/DL (14.0-18.0); Immature Granulocytes % 1.2 %; Lymphocytes # 1.5 10*3/uL (1.4-4.0); Lymphocytes % 17.6 % (21.2-54.2); Mean Corpuscular HGB Conc 30.8 GM/DL (32-36); Mean Corpuscular Volume 92.3 FL (87-102); Mean Platelet Volume 10.9 FL (9.6-12.0); Monocytes % 6.7 % (1.7-12.7); Neutrophils % 74.1 % (38.7-73.9); Platelet Count 242 T/CUMM (130-400); Red Blood Count 3.24 MC/CUMM (3.8-5.5); Red Cell Distribution Width 15.6 % (9.3-17.3); White Blood Count 8.3 T/CUMM (4-12)
[2019-03-24 18:54] LABS: Albumin 3.2 G/DL (3.4-5.0); Bilirubin,Total 0.4 MG/DL (0.2-1.0); Calcium 8.3 MG/DL (8.5-10.1); Osmolality,Calculated 284.5 MOS/KG (273-304); Total Protein 7.1 G/DL (6.4-8.3)
[2019-03-24] MEDS: DOCUSATE SODIUM 100 MG CAPSULE PO SCH (22:27)
[2019-03-25] MEDS: SODIUM CHLORIDE 0.9% 1,000 ML IV SCH ×4 (05:37→23:50)
[2019-03-25 06:22] LABS: Basophils % 0.2 % (0.0-0.8); Eosinophils % 0.1 % (0.00-10.9); Hematocrit 26.5 VOL% (42.0-52.0); Hemoglobin 8.1 GM/DL (14.0-18.0); Immature Granulocytes % 1.1 %; Immature Granulocytes Absolute 0.11 #; Lymphocytes # 2.4 10*3/uL (1.4-4.0); Lymphocytes % 24.8 % (21.2-54.2); Mean Corpuscular HGB Conc 30.6 GM/DL (32-36); Mean Platelet Volume 11.3 FL (9.6-12.0); Monocytes % 6.8 % (1.7-12.7); Platelet Count 207 T/CUMM (130-400); Red Blood Count 2.85 MC/CUMM (3.8-5.5); Red Cell Distribution Width 15.4 % (9.3-17.3); White Blood Count 9.6 T/CUMM (4-12)
[2019-03-25 06:44] LABS: Calcium 7.8 MG/DL (8.5-10.1); Osmolality,Calculated 283.4 MOS/KG (273-304)
[2019-03-25] MEDS ORDERED: POTASSIUM CHLORIDE 20 MEQ TABLET PO ONE (08:47)
[2019-03-25] MEDS: DOCUSATE SODIUM 100 MG CAPSULE PO SCH ×3 (09:40→21:32)
[2019-03-25] MEDS: PANTOPRAZOLE 40 MG TABLET PO SCH (09:41)
[2019-03-25] MEDS: POTASSIUM CHLORIDE RIDER 10 MEQ in PREMIX 1 EACH IV PRN ×4 (09:41→23:30)
[2019-03-25] MEDS: MENTHOL/ZINC OXIDE OINT 71 GM JAR TOP SCH ×2 (14:15→21:30)
[2019-03-25] MEDS ORDERED: ALBUTEROL 2.5 MG/3 ML NEB RESP TX PRN (15:31)
[2019-03-25] MEDS: LEVOFLOXACIN INJ 750 MG in PREMIX 1 EACH IV SCH (18:08)
[2019-03-25] MEDS: ALBUTEROL/IPRATROPIUM 3 ML NEB RESP TX SCH ×2 (19:33→23:49)
[2019-03-26] MEDS: POTASSIUM CHLORIDE RIDER 10 MEQ in PREMIX 1 EACH IV PRN (02:15)
[2019-03-26] MEDS: ALBUTEROL/IPRATROPIUM 3 ML NEB RESP TX SCH ×2 (03:24→08:55)
[2019-03-26] MEDS ORDERED: MAGNESIUM SULF RIDER 4 GM in PREMIX 1 EACH IV PRN (03:57)
[2019-03-26] MEDS ORDERED: MAGNESIUM SULF RIDER 2 GM in PREMIX 1 EACH IV PRN (03:57)
[2019-03-26] MEDS ORDERED: AMIODARONE 200 MG TABLET PO SCH (04:00)
[2019-03-26 04:17] LABS: Basophils % 0.1 % (0.0-0.8); Hematocrit 24.7 VOL% (42.0-52.0); Hemoglobin 7.5 GM/DL (14.0-18.0); Immature Granulocytes % 1.6 %; Immature Granulocytes Absolute 0.11 #; Lymphocytes # 1.7 10*3/uL (1.4-4.0); Lymphocytes % 23.8 % (21.2-54.2); Mean Corpuscular HGB Conc 30.4 GM/DL (32-36); Mean Corpuscular Volume 93.9 FL (87-102); Mean Platelet Volume 11.3 FL (9.6-12.0); Monocytes % 7.3 % (1.7-12.7); Neutrophils % 67.2 % (38.7-73.9); Platelet Count 177 T/CUMM (130-400); Red Blood Count 2.63 MC/CUMM (3.8-5.5); Red Cell Distribution Width 15.6 % (9.3-17.3)
[2019-03-26 04:39] LABS: Troponin I 0.087 NG/ML (0.00-0.045)
[2019-03-26 04:47] LABS: Calcium 7.3 MG/DL (8.5-10.1); Osmolality,Calculated 282.3 MOS/KG (273-304)
[2019-03-26] MEDS: METOPROLOL TARTRATE 50 MG TABLET PO SCH ×2 (05:30→21:55)
[2019-03-26] MEDS ORDERED: ALPRAZolam 0.25 MG TABLET PO PRN (08:05)
[2019-03-26] MEDS ORDERED: NITROGLYCERIN SL 0.4 MG TABLET SL PRN (08:05)
[2019-03-26] MEDS ORDERED: hydrOXYzine HCL 10 MG TABLET PO PRN (08:05)
[2019-03-26] MEDS: AMIODARONE 200 MG TABLET PO SCH ×2 (10:36→20:18)
[2019-03-26] MEDS: METOPROLOL TARTRATE 25 MG TABLET PO SCH ×2 (10:36→20:20)
[2019-03-26] MEDS: PANTOPRAZOLE 40 MG TABLET PO SCH (10:37)
[2019-03-26] MEDS: DOCUSATE SODIUM 100 MG CAPSULE PO SCH ×2 (10:37→20:18)
[2019-03-26] MEDS: TICAGRELOR 90 MG TABLET PO SCH ×2 (10:48→20:20)
[2019-03-26] MEDS: POTASSIUM CHLORIDE 10 MEQ TABLET PO SCH (10:48)
[2019-03-26] MEDS: ISOSORBIDE MONONITRATE 30 MG TABLET PO SCH (10:48)
[2019-03-26] MEDS: LEFLUNOMIDE 10 MG TABLET PO SCH (10:48)
[2019-03-26] MEDS: APIXABAN 2.5 MG TABLET PO SCH ×2 (10:49→20:20)
[2019-03-26] MEDS: FUROSEMIDE 40 MG TABLET PO SCH (10:49)
[2019-03-26] MEDS: ASPIRIN EC 81 MG TABLET PO SCH (10:49)
[2019-03-26] MEDS: SODIUM CHLORIDE 0.9% 1,000 ML IV SCH (10:51)
[2019-03-26] MEDS: PIPERACILLIN/TAZOBACTAM 3,375 MG in SODIUM CHLORIDE 0.9% 100 ML IV SCH ×2 (10:52→17:34)
[2019-03-26] MEDS: MENTHOL/ZINC OXIDE OINT 71 GM JAR TOP SCH ×2 (11:18→20:20)
[2019-03-26] MEDS: DICLOFENAC 1% GEL 100 GM TUBE TOP SCH ×4 (11:18→20:20)
[2019-03-26] MEDS: MEXILETINE 150 MG CAPSULE PO SCH ×2 (15:43→17:33)
[2019-03-26] MEDS: MIRTAZAPINE 15 MG TABLET PO SCH (20:19)
[2019-03-26] MEDS: SIMVASTATIN 20 MG TABLET PO SCH (20:54)
[2019-03-27] MEDS: PIPERACILLIN/TAZOBACTAM 3,375 MG in SODIUM CHLORIDE 0.9% 100 ML IV SCH ×3 (01:13→17:15)
[2019-03-27 05:27] LABS: Basophils % 0.3 % (0.0-0.8); Eosinophils # 0.1 10*3/uL (0.0-0.87); Eosinophils % 1.4 % (0.00-10.9); Hemoglobin 7.2 GM/DL (14.0-18.0); Immature Granulocytes % 1.6 %; Lymphocytes # 1.3 10*3/uL (1.4-4.0); Lymphocytes % 19.6 % (21.2-54.2); Mean Corpuscular Volume 94.1 FL (87-102); Mean Platelet Volume 11.2 FL (9.6-12.0); Monocytes % 7.9 % (1.7-12.7); Neutrophils % 69.2 % (38.7-73.9); Platelet Count 212 T/CUMM (130-400); Red Blood Count 2.55 MC/CUMM (3.8-5.5); Red Cell Distribution Width 15.9 % (9.3-17.3); White Blood Count 6.4 T/CUMM (4-12)
[2019-03-27 06:19] LABS: Calcium 7.7 MG/DL (8.5-10.1); Osmolality,Calculated 286.8 MOS/KG (273-304)
[2019-03-27] MEDS: LEVOTHYROXINE 88 MCG TABLET PO SCH (06:46)
[2019-03-27] MEDS: METOPROLOL TARTRATE 25 MG TABLET PO SCH ×2 (08:45→20:57)
[2019-03-27] MEDS: TICAGRELOR 90 MG TABLET PO SCH ×2 (08:46→20:57)
[2019-03-27] MEDS: DOCUSATE SODIUM 100 MG CAPSULE PO SCH ×2 (08:46→20:58)
[2019-03-27] MEDS: FUROSEMIDE 40 MG TABLET PO SCH (08:46)
[2019-03-27] MEDS: AMIODARONE 200 MG TABLET PO SCH ×2 (08:46→20:57)
[2019-03-27] MEDS: ISOSORBIDE MONONITRATE 30 MG TABLET PO SCH (08:46)
[2019-03-27] MEDS: POTASSIUM CHLORIDE 10 MEQ TABLET PO SCH (08:46)
[2019-03-27] MEDS: LEFLUNOMIDE 10 MG TABLET PO SCH (08:46)
[2019-03-27] MEDS: MEXILETINE 150 MG CAPSULE PO SCH ×3 (08:46→17:15)
[2019-03-27] MEDS: MENTHOL/ZINC OXIDE OINT 71 GM JAR TOP SCH ×2 (08:46→20:58)
[2019-03-27] MEDS: PANTOPRAZOLE 40 MG TABLET PO SCH (08:46)
[2019-03-27] MEDS: APIXABAN 2.5 MG TABLET PO SCH ×2 (08:46→20:57)
[2019-03-27] MEDS: ASPIRIN EC 81 MG TABLET PO SCH (08:46)
[2019-03-27] MEDS: DICLOFENAC 1% GEL 100 GM TUBE TOP SCH ×4 (08:47→20:58)
[2019-03-27] MEDS ORDERED: ZALEPLON 5 MG CAPSULE PO PRN (20:01)
[2019-03-27] MEDS: MIRTAZAPINE 15 MG TABLET PO SCH (20:56)
[2019-03-27] MEDS: COLESTIPOL 1 GM TABLET PO SCH (20:56)
[2019-03-27] MEDS: SIMVASTATIN 20 MG TABLET PO SCH (20:57)
[2019-03-28] MEDS: PIPERACILLIN/TAZOBACTAM 3,375 MG in SODIUM CHLORIDE 0.9% 100 ML IV SCH ×3 (03:18→18:16)
[2019-03-28] MEDS: LEVOTHYROXINE 88 MCG TABLET PO SCH (06:32)
[2019-03-28 07:01] LABS: Albumin 2.1 G/DL (3.4-5.0); Bilirubin,Total 0.6 MG/DL (0.2-1.0); Calcium 8.1 MG/DL (8.5-10.1); Osmolality,Calculated 280.3 MOS/KG (273-304); Total Protein 5.6 G/DL (6.4-8.3)
[2019-03-28] MEDS: METOPROLOL TARTRATE 25 MG TABLET PO SCH ×2 (08:58→20:44)
[2019-03-28] MEDS: PANTOPRAZOLE 40 MG TABLET PO SCH (08:58)
[2019-03-28] MEDS: LEFLUNOMIDE 10 MG TABLET PO SCH (08:58)
[2019-03-28] MEDS: POTASSIUM CHLORIDE 10 MEQ TABLET PO SCH (08:58)
[2019-03-28] MEDS: MEXILETINE 150 MG CAPSULE PO SCH ×3 (08:59→18:17)
[2019-03-28] MEDS: TICAGRELOR 90 MG TABLET PO SCH ×2 (08:59→20:44)
[2019-03-28] MEDS: FUROSEMIDE 40 MG TABLET PO SCH (08:59)
[2019-03-28] MEDS: APIXABAN 2.5 MG TABLET PO SCH ×2 (08:59→20:43)
[2019-03-28] MEDS: ISOSORBIDE MONONITRATE 30 MG TABLET PO SCH (08:59)
[2019-03-28] MEDS: AMIODARONE 200 MG TABLET PO SCH ×2 (08:59→20:52)
[2019-03-28] MEDS: ASPIRIN EC 81 MG TABLET PO SCH (09:08)
[2019-03-28] MEDS: POTASSIUM CHLORIDE RIDER 10 MEQ in PREMIX 1 EACH IV PRN (09:13)
[2019-03-28] MEDS: MENTHOL/ZINC OXIDE OINT 71 GM JAR TOP SCH ×2 (09:13→21:03)
[2019-03-28] MEDS: DICLOFENAC 1% GEL 100 GM TUBE TOP SCH ×3 (09:14→16:14)
[2019-03-28] MEDS: DOCUSATE SODIUM 100 MG CAPSULE PO SCH ×2 (09:14→20:43)
[2019-03-28] MEDS ORDERED: ACETAMINOPHEN 500 MG TABLET PO ONE (13:20)
[2019-03-28] MEDS ORDERED: SODIUM CHLORIDE 0.9% 1,000 ML IV PRN (13:27)
[2019-03-28] MEDS: COLESTIPOL 1 GM TABLET PO SCH (20:43)
[2019-03-28] MEDS: CYCLOBENZAPRINE 10 MG TABLET PO PRN (20:44)
[2019-03-28] MEDS: MIRTAZAPINE 15 MG TABLET PO SCH (20:45)
[2019-03-28] MEDS: SIMVASTATIN 20 MG TABLET PO SCH (20:45)
[2019-03-29] MEDS: DOCUSATE SODIUM 100 MG CAPSULE PO SCH ×3 (03:13→22:25)
[2019-03-29] MEDS: DICLOFENAC 1% GEL 100 GM TUBE TOP SCH ×5 (03:14→22:25)
[2019-03-29] MEDS: PIPERACILLIN/TAZOBACTAM 3,375 MG in SODIUM CHLORIDE 0.9% 100 ML IV SCH ×3 (03:39→17:24)
[2019-03-29 05:39] LABS: Basophils % 0.4 % (0.0-0.8); Eosinophils # 0.2 10*3/uL (0.0-0.87); Eosinophils % 3.2 % (0.00-10.9); Hematocrit 23.9 VOL% (42.0-52.0); Hemoglobin 7.4 GM/DL (14.0-18.0); Immature Granulocytes % 0.9 %; Immature Granulocytes Absolute 0.05 #; Lymphocytes % 17.7 % (21.2-54.2); Mean Corpuscular Volume 93.4 FL (87-102); Mean Platelet Volume 11.1 FL (9.6-12.0); Monocytes % 6.6 % (1.7-12.7); Neutrophils % 71.2 % (38.7-73.9); Platelet Count 213 T/CUMM (130-400); Red Blood Count 2.56 MC/CUMM (3.8-5.5); Red Cell Distribution Width 15.9 % (9.3-17.3); White Blood Count 5.6 T/CUMM (4-12)
[2019-03-29 06:04] LABS: Calcium 7.7 MG/DL (8.5-10.1); Osmolality,Calculated 289.6 MOS/KG (273-304)
[2019-03-29] MEDS: LEVOTHYROXINE 88 MCG TABLET PO SCH (06:49)
[2019-03-29] MEDS: METOPROLOL TARTRATE 25 MG TABLET PO SCH ×2 (09:12→22:22)
[2019-03-29] MEDS: ISOSORBIDE MONONITRATE 30 MG TABLET PO SCH (09:12)
[2019-03-29] MEDS: AMIODARONE 200 MG TABLET PO SCH ×2 (09:12→22:23)
[2019-03-29] MEDS: PANTOPRAZOLE 40 MG TABLET PO SCH (09:14)
[2019-03-29] MEDS: APIXABAN 2.5 MG TABLET PO SCH ×2 (09:14→22:21)
[2019-03-29] MEDS: MENTHOL/ZINC OXIDE OINT 71 GM JAR TOP SCH ×2 (09:14→22:33)
[2019-03-29] MEDS: MEXILETINE 150 MG CAPSULE PO SCH ×3 (09:14→16:15)
[2019-03-29] MEDS: FUROSEMIDE 40 MG TABLET PO SCH (09:14)
[2019-03-29] MEDS: TICAGRELOR 90 MG TABLET PO SCH ×2 (09:14→22:21)
[2019-03-29] MEDS: LEFLUNOMIDE 10 MG TABLET PO SCH (09:14)
[2019-03-29] MEDS: MAGNESIUM OXIDE 400 MG TABLET PO SCH ×2 (09:17→22:23)
[2019-03-29] MEDS: POTASSIUM CHLORIDE 20 MEQ TABLET PO SCH ×2 (09:17→22:21)
[2019-03-29] MEDS: POTASSIUM CHLORIDE 20 MEQ TABLET PO PRN ×4 (09:53→16:15)
[2019-03-29 15:34] LABS: Hematocrit 31.5 VOL% (42.0-52.0)
[2019-03-29] MEDS ORDERED: FUROSEMIDE 20 MG/2 ML VIAL IV ONE (18:23)
[2019-03-29] MEDS: CYCLOBENZAPRINE 10 MG TABLET PO PRN (22:20)
[2019-03-29] MEDS: COLESTIPOL 1 GM TABLET PO SCH (22:20)
[2019-03-29] MEDS: SIMVASTATIN 20 MG TABLET PO SCH (22:21)
[2019-03-29] MEDS: MIRTAZAPINE 15 MG TABLET PO SCH (22:23)
[2019-03-30] MEDS: PIPERACILLIN/TAZOBACTAM 3,375 MG in SODIUM CHLORIDE 0.9% 100 ML IV SCH ×3 (01:42→17:58)
[2019-03-30 05:15] LABS: Basophils % 0.4 % (0.0-0.8); Eosinophils # 0.2 10*3/uL (0.0-0.87); Eosinophils % 2.7 % (0.00-10.9); Hematocrit 30.5 VOL% (42.0-52.0); Hemoglobin 9.6 GM/DL (14.0-18.0); Immature Granulocytes % 1.3 %; Lymphocytes % 13.2 % (21.2-54.2); Mean Corpuscular HGB Conc 31.5 GM/DL (32-36); Mean Corpuscular Volume 92.1 FL (87-102); Mean Platelet Volume 11.3 FL (9.6-12.0); Monocytes % 8.8 % (1.7-12.7); Neutrophils % 73.6 % (38.7-73.9); Platelet Count 245 T/CUMM (130-400); Red Blood Count 3.31 MC/CUMM (3.8-5.5); Red Cell Distribution Width 15.7 % (9.3-17.3); White Blood Count 7.7 T/CUMM (4-12)
[2019-03-30 05:51] LABS: Calcium 8.1 MG/DL (8.5-10.1)
[2019-03-30] MEDS: LEVOTHYROXINE 88 MCG TABLET PO SCH (06:27)
[2019-03-30] MEDS: METOPROLOL TARTRATE 100 MG TABLET PO SCH ×2 (09:26→21:38)
[2019-03-30] MEDS: MAGNESIUM OXIDE 400 MG TABLET PO SCH ×2 (09:26→21:38)
[2019-03-30] MEDS: POTASSIUM CHLORIDE 20 MEQ TABLET PO SCH ×2 (09:26→09:38)
[2019-03-30] MEDS: APIXABAN 2.5 MG TABLET PO SCH ×2 (09:26→21:38)
[2019-03-30] MEDS: MENTHOL/ZINC OXIDE OINT 71 GM JAR TOP SCH ×2 (09:26→21:39)
[2019-03-30] MEDS: FUROSEMIDE 40 MG TABLET PO SCH (09:26)
[2019-03-30] MEDS: ISOSORBIDE MONONITRATE 30 MG TABLET PO SCH (09:26)
[2019-03-30] MEDS: MEXILETINE 150 MG CAPSULE PO SCH ×3 (09:26→21:38)
[2019-03-30] MEDS: LEFLUNOMIDE 10 MG TABLET PO SCH (09:26)
[2019-03-30] MEDS: AMIODARONE 200 MG TABLET PO SCH ×2 (09:26→21:38)
[2019-03-30] MEDS: TICAGRELOR 90 MG TABLET PO SCH ×2 (09:26→21:39)
[2019-03-30] MEDS: DOCUSATE SODIUM 100 MG CAPSULE PO SCH ×2 (09:26→21:39)
[2019-03-30] MEDS: PANTOPRAZOLE 40 MG TABLET PO SCH (09:26)
[2019-03-30] MEDS: DICLOFENAC 1% GEL 100 GM TUBE TOP SCH ×4 (09:27→22:02)
[2019-03-30] MEDS: POTASSIUM CHLORIDE 20 MEQ/15 ML UDCUP PO SCH (12:09)
[2019-03-30] MEDS: SIMVASTATIN 20 MG TABLET PO SCH (21:38)
[2019-03-30] MEDS: COLESTIPOL 1 GM TABLET PO SCH (21:39)
[2019-03-30] MEDS: MIRTAZAPINE 15 MG TABLET PO SCH (21:39)
[2019-03-30] MEDS: CEFDINIR 300 MG CAPSULE PO SCH (21:59)
[2019-03-31] MEDS: LEVOTHYROXINE 88 MCG TABLET PO SCH (06:11)
[2019-03-31] MEDS: TICAGRELOR 90 MG TABLET PO SCH (09:26)
[2019-03-31] MEDS: POTASSIUM CHLORIDE 20 MEQ/15 ML UDCUP PO SCH (09:26)
[2019-03-31] MEDS: PANTOPRAZOLE 40 MG TABLET PO SCH (09:26)
[2019-03-31] MEDS: MEXILETINE 150 MG CAPSULE PO SCH (09:26)
[2019-03-31] MEDS: LEFLUNOMIDE 10 MG TABLET PO SCH (09:26)
[2019-03-31] MEDS: METOPROLOL TARTRATE 100 MG TABLET PO SCH (09:26)
[2019-03-31] MEDS: FUROSEMIDE 40 MG TABLET PO SCH (09:26)
[2019-03-31] MEDS: AMIODARONE 200 MG TABLET PO SCH (09:26)
[2019-03-31] MEDS: MAGNESIUM OXIDE 400 MG TABLET PO SCH (09:27)
[2019-03-31] MEDS: COLESTIPOL 1 GM TABLET PO SCH (09:27)
[2019-03-31] MEDS: APIXABAN 2.5 MG TABLET PO SCH (09:27)
[2019-03-31] MEDS: ISOSORBIDE MONONITRATE 30 MG TABLET PO SCH (09:27)
[2019-03-31] MEDS: CEFDINIR 300 MG CAPSULE PO SCH (09:27)
[2019-03-31] MEDS: DOCUSATE SODIUM 100 MG CAPSULE PO SCH (09:52)
[2019-03-31] MEDS: DICLOFENAC 1% GEL 100 GM TUBE TOP SCH ×3 (09:52→17:30)
[2019-03-31] MEDS: MENTHOL/ZINC OXIDE OINT 71 GM JAR TOP SCH (09:53)
[2019-03-31 15:43] VITALS: BP 110/56
== END 2019-03-31 19:37 | disposition home health service (06) | DRG 194 ==
LOC: N.5E 16:43 → SUATTDRO 16:43
PROVIDERS: ADMIT Family Medicine; ATTEND Family Medicine

== ENCOUNTER 2019-12-13 19:25 | Inpatient (IN) ==
[2019-12-13 20:04] LABS: Basophils # 0.1 10*3/uL (0.0-0.2); Basophils % 0.3 % (0.0-0.8); Eosinophils # 0.1 10*3/uL (0.0-0.87); Eosinophils % 0.3 % (0.00-10.9); Immature Granulocytes % 0.7 %; Lymphocytes # 1.2 10*3/uL (1.4-4.0); Mean Corpuscular HGB Conc 31.3 GM/DL (32-36); Mean Corpuscular Volume 100.3 FL (87-102); Mean Platelet Volume 11.2 FL (9.6-12.0); Monocytes % 6.1 % (1.7-12.7); NRBC # 0.02 10*3/uL; Neutrophils % 84.6 % (38.7-73.9); Platelet Count 234 T/CUMM (130-400); Red Blood Count 3.19 MC/CUMM (3.8-5.5); Red Cell Distribution Width 17.2 % (9.3-17.3); White Blood Count 14.8 T/CUMM (4-12)
[2019-12-13 20:14] LABS: INR 1.2; PT Patient Result 12.8 SECS (9.8-11.9)
[2019-12-13 20:16] LABS: Apearance,Urine CLEAR (Clear); Bilirubin,Urine Negative (Negative); Blood, Urine Negative (Negative); Glucose,Urine (UA) Negative (Negative); Hyaline Casts,Urine 12 /LPF (0-3); Ketones,Urine Negative (Negative); Mucus,Urine Occasional /LPF (Occasional); Nitrite,Urine Negative (Negative); Protein,Urine Negative; RBC,Urine 2 /HPF (0-4); Squamous Epithelial Cell,Urine Occasional /HPF (0-10); Urine Color Yellow (Yellow); Urine Specific Gravity 1.012 (1.001-1.035); Urine Urobilinogen < 2.0 EU/DL (0.2-1.0); WBC,Urine 20 /HPF (0-6)
[2019-12-13 20:34] LABS: Alanine Aminotransferase 19 U/L (16-61); Albumin 2.9 G/DL (3.4-5.0); Alkaline Phosphatase 76 U/L (45-117); Aspartate Amino Transferase 30 U/L (0-37); Blood Urea Nitrogen 51 MG/DL (7-18); Calcium 8.8 MG/DL (8.5-10.1); Estimated Glom Filtration Rate 19 ML/MIN; Glucose 128 MG/DL (74-106); Osmolality,Calculated 294.4 MOS/KG (273-304); Total Protein 6.2 G/DL (6.4-8.3)
[2019-12-13 20:38] LABS: Troponin I 0.079 NG/ML (0.00-0.045)
[2019-12-13] MEDS ORDERED: cefTRIAXone 1,000 MG in SODIUM CHLORIDE 0.9% 100 ML IV STA (21:19)
[2019-12-13] MEDS ORDERED: AZITHROMYCIN INJ 500 MG in SODIUM CHLORIDE 0.9% 250 ML IV STA (21:19)
[2019-12-13] MEDS ORDERED: SODIUM CHLORIDE 0.9% 500 ML IV STA (21:24)
[2019-12-13] MEDS ORDERED: ACETAMINOPHEN 325 MG TABLET PO PRN (21:26)
[2019-12-13] MEDS ORDERED: ONDANSETRON 4 MG/2 ML VIAL IV PRN (21:26)
[2019-12-13] MEDS: cefTRIAXone 1,000 MG in SYRINGE 1 EACH IV SCH (23:00)
[2019-12-13] MEDS: SODIUM CHLORIDE 0.9% 1,000 ML IV SCH (23:12)
[2019-12-14 04:00] LABS: Basophils % 0.2 % (0.0-0.8); Eosinophils # 0.1 10*3/uL (0.0-0.87); Eosinophils % 0.6 % (0.00-10.9); Hemoglobin 8.3 GM/DL (14.0-18.0); Immature Granulocytes % 0.8 %; Lymphocytes # 1.3 10*3/uL (1.4-4.0); Lymphocytes % 10.3 % (21.2-54.2); Mean Corpuscular HGB Conc 30.7 GM/DL (32-36); Mean Corpuscular Volume 102.3 FL (87-102); Monocytes % 5.1 % (1.7-12.7); Platelet Count 193 T/CUMM (130-400); Red Blood Count 2.64 MC/CUMM (3.8-5.5); Red Cell Distribution Width 17.2 % (9.3-17.3); White Blood Count 12.5 T/CUMM (4-12)
[2019-12-14 04:40] LABS: Albumin 2.4 G/DL (3.4-5.0); Bilirubin,Total 0.4 MG/DL (0.2-1.0); Calcium 8.6 MG/DL (8.5-10.1); Osmolality,Calculated 294.3 MOS/KG (273-304); Total Protein 5.2 G/DL (6.4-8.3)
[2019-12-14] MEDS ORDERED: hydrOXYzine HCL 10 MG TABLET PO PRN (06:54)
[2019-12-14] MEDS ORDERED: NITROGLYCERIN SL 0.4 MG TABLET SL PRN (06:54)
[2019-12-14] MEDS ORDERED: ENOXAPARIN 30 MG/0.3 ML SYRINGE SUBCUT SCH (08:00)
[2019-12-14] MEDS: FUROSEMIDE 40 MG TABLET PO SCH (09:24)
[2019-12-14] MEDS: LEFLUNOMIDE 10 MG TABLET PO SCH (09:25)
[2019-12-14] MEDS: METOPROLOL TARTRATE 100 MG TABLET PO SCH ×2 (09:25→21:29)
[2019-12-14] MEDS: PANTOPRAZOLE 40 MG TABLET PO SCH (09:26)
[2019-12-14] MEDS: ASPIRIN EC 81 MG TABLET PO SCH (09:26)
[2019-12-14] MEDS: AZITHROMYCIN 250 MG TABLET PO SCH (09:26)
[2019-12-14] MEDS: MEXILETINE 150 MG CAPSULE PO SCH ×3 (09:26→17:14)
[2019-12-14] MEDS: TICAGRELOR 90 MG TABLET PO SCH ×2 (09:26→21:29)
[2019-12-14] MEDS: DOCUSATE SODIUM 100 MG CAPSULE PO SCH ×2 (09:26→21:29)
[2019-12-14] MEDS: ISOSORBIDE MONONITRATE 30 MG TABLET PO SCH (09:27)
[2019-12-14] MEDS: POTASSIUM CHLORIDE 10 MEQ TABLET PO SCH (09:27)
[2019-12-14] MEDS: AMIODARONE 200 MG TABLET PO SCH ×2 (09:27→21:29)
[2019-12-14] MEDS: APIXABAN 2.5 MG TABLET PO SCH ×2 (09:27→21:29)
[2019-12-14] MEDS: LEVOTHYROXINE 88 MCG TABLET PO SCH (09:27)
[2019-12-14] MEDS: LOPERAMIDE 1 MG/7.5 ML 30 ML BOTTLE PO SCH ×2 (09:34→21:30)
[2019-12-14] MEDS: SODIUM CHLORIDE 0.9% 1,000 ML IV SCH (16:41)
[2019-12-14] MEDS: SIMVASTATIN 20 MG TABLET PO SCH (21:29)
[2019-12-14] MEDS ORDERED: AZITHROMYCIN INJ 250 MG in SODIUM CHLORIDE 0.9% 250 ML IV SCH (21:30)
[2019-12-14] MEDS: MIRTAZAPINE 15 MG TABLET PO SCH (21:33)
[2019-12-15] MEDS: cefTRIAXone 1,000 MG in SYRINGE 1 EACH IV SCH (00:27)
[2019-12-15 05:07] LABS: Basophils % 0.3 % (0.0-0.8); Eosinophils # 0.3 10*3/uL (0.0-0.87); Eosinophils % 2.5 % (0.00-10.9); Hematocrit 24.5 VOL% (42.0-52.0); Hemoglobin 7.7 GM/DL (14.0-18.0); Lymphocytes # 0.9 10*3/uL (1.4-4.0); Lymphocytes % 9.1 % (21.2-54.2); Mean Corpuscular HGB Conc 31.4 GM/DL (32-36); Mean Corpuscular Volume 99.6 FL (87-102); Mean Platelet Volume 10.9 FL (9.6-12.0); Monocytes % 4.6 % (1.7-12.7); Neutrophils % 82.5 % (38.7-73.9); Platelet Count 179 T/CUMM (130-400); Red Blood Count 2.46 MC/CUMM (3.8-5.5); White Blood Count 10.1 T/CUMM (4-12)
[2019-12-15 05:34] LABS: Calcium 8.4 MG/DL (8.5-10.1); Osmolality,Calculated 284.7 MOS/KG (273-304)
[2019-12-15] MEDS: LEVOTHYROXINE 88 MCG TABLET PO SCH (06:00)
[2019-12-15] MEDS: METOPROLOL TARTRATE 100 MG TABLET PO SCH ×2 (09:33→22:22)
[2019-12-15] MEDS: AMIODARONE 200 MG TABLET PO SCH ×2 (09:33→22:22)
[2019-12-15] MEDS: AZITHROMYCIN 250 MG TABLET PO SCH (09:34)
[2019-12-15] MEDS: DOCUSATE SODIUM 100 MG CAPSULE PO SCH ×3 (09:34→22:36)
[2019-12-15] MEDS: FUROSEMIDE 40 MG TABLET PO SCH (09:35)
[2019-12-15] MEDS: APIXABAN 2.5 MG TABLET PO SCH ×2 (09:35→22:22)
[2019-12-15] MEDS: MULTIVITAMIN (CENTRUM) TABLET PO SCH (09:36)
[2019-12-15] MEDS: LEFLUNOMIDE 10 MG TABLET PO SCH (09:36)
[2019-12-15] MEDS: PANTOPRAZOLE 40 MG TABLET PO SCH (09:36)
[2019-12-15] MEDS: POTASSIUM CHLORIDE 10 MEQ TABLET PO SCH (09:36)
[2019-12-15] MEDS: ISOSORBIDE MONONITRATE 30 MG TABLET PO SCH (09:36)
[2019-12-15] MEDS: ASPIRIN EC 81 MG TABLET PO SCH (09:38)
[2019-12-15] MEDS: TICAGRELOR 90 MG TABLET PO SCH ×2 (09:38→22:23)
[2019-12-15] MEDS: MEXILETINE 150 MG CAPSULE PO SCH ×3 (09:38→17:40)
[2019-12-15] MEDS: LOPERAMIDE 1 MG/7.5 ML 30 ML BOTTLE PO SCH ×2 (09:42→22:36)
[2019-12-15] MEDS: SODIUM CHLORIDE 0.9% 1,000 ML IV SCH ×2 (11:56→15:08)
[2019-12-15] MEDS: MIRTAZAPINE 15 MG TABLET PO SCH (22:22)
[2019-12-15] MEDS: SIMVASTATIN 20 MG TABLET PO SCH (22:23)
[2019-12-16] MEDS: cefTRIAXone 1,000 MG in SYRINGE 1 EACH IV SCH ×2 (00:27→23:31)
[2019-12-16 03:20] LABS: Basophils % 0.4 % (0.0-0.8); Eosinophils # 0.1 10*3/uL (0.0-0.87); Eosinophils % 1.4 % (0.00-10.9); Hematocrit 24.5 VOL% (42.0-52.0); Hemoglobin 7.7 GM/DL (14.0-18.0); Immature Granulocytes % 1.4 %; Immature Granulocytes Absolute 0.12 #; Lymphocytes # 1.1 10*3/uL (1.4-4.0); Lymphocytes % 12.4 % (21.2-54.2); Mean Corpuscular HGB Conc 31.4 GM/DL (32-36); Mean Corpuscular Volume 100.8 FL (87-102); Monocytes % 6.9 % (1.7-12.7); Neutrophils % 77.5 % (38.7-73.9); Platelet Count 174 T/CUMM (130-400); Red Blood Count 2.43 MC/CUMM (3.8-5.5); Red Cell Distribution Width 16.8 % (9.3-17.3); White Blood Count 8.5 T/CUMM (4-12)
[2019-12-16 03:50] LABS: Bilirubin,Total 0.4 MG/DL (0.2-1.0); Calcium 8.4 MG/DL (8.5-10.1); Osmolality,Calculated 281.7 MOS/KG (273-304); Total Protein 5.1 G/DL (6.4-8.3)
[2019-12-16] MEDS: LEVOTHYROXINE 88 MCG TABLET PO SCH (06:13)
[2019-12-16] MEDS: POTASSIUM CHLORIDE 10 MEQ TABLET PO SCH ×2 (09:49→21:18)
[2019-12-16] MEDS: DOCUSATE SODIUM 100 MG CAPSULE PO SCH ×2 (09:49→22:47)
[2019-12-16] MEDS: FUROSEMIDE 40 MG TABLET PO SCH (09:49)
[2019-12-16] MEDS: MULTIVITAMIN (CENTRUM) TABLET PO SCH (09:49)
[2019-12-16] MEDS: ISOSORBIDE MONONITRATE 30 MG TABLET PO SCH (09:50)
[2019-12-16] MEDS: APIXABAN 2.5 MG TABLET PO SCH ×2 (09:50→21:18)
[2019-12-16] MEDS: METOPROLOL TARTRATE 100 MG TABLET PO SCH ×2 (09:50→21:18)
[2019-12-16] MEDS: ASPIRIN EC 81 MG TABLET PO SCH (09:50)
[2019-12-16] MEDS: PANTOPRAZOLE 40 MG TABLET PO SCH (09:50)
[2019-12-16] MEDS: AMIODARONE 200 MG TABLET PO SCH ×2 (09:50→21:18)
[2019-12-16] MEDS: AZITHROMYCIN 250 MG TABLET PO SCH (09:50)
[2019-12-16] MEDS: LOPERAMIDE 1 MG/7.5 ML 30 ML BOTTLE PO SCH ×2 (09:50→22:48)
[2019-12-16] MEDS: LEFLUNOMIDE 10 MG TABLET PO SCH (09:50)
[2019-12-16] MEDS: MEXILETINE 150 MG CAPSULE PO SCH ×3 (09:50→17:24)
[2019-12-16] MEDS: TICAGRELOR 90 MG TABLET PO SCH ×2 (09:50→21:18)
[2019-12-16] MEDS ORDERED: POTASSIUM CHLORIDE 20 MEQ TABLET PO ONE (11:26)
[2019-12-16] MEDS ORDERED: MAGNESIUM SULF RIDER 2 GM in PREMIX 1 EACH IV ONE (11:26)
[2019-12-16] MEDS: SODIUM CHLOR 0.9% KCL 20 MEQ 20 MEQ/1,000 ML BAG IV SCH (19:28)
[2019-12-16] MEDS: CYCLOBENZAPRINE 10 MG TABLET PO PRN (21:18)
[2019-12-16] MEDS: SIMVASTATIN 20 MG TABLET PO SCH (21:18)
[2019-12-16] MEDS: MIRTAZAPINE 15 MG TABLET PO SCH (21:18)
[2019-12-17] MEDS: SODIUM CHLOR 0.9% KCL 20 MEQ 20 MEQ/1,000 ML BAG IV SCH (05:11)
[2019-12-17 05:12] LABS: Basophils % 0.5 % (0.0-0.8); Eosinophils # 0.2 10*3/uL (0.0-0.87); Hematocrit 28.3 VOL% (42.0-52.0); Hemoglobin 8.8 GM/DL (14.0-18.0); Immature Granulocytes % 1.1 %; Immature Granulocytes Absolute 0.08 #; Lymphocytes # 0.8 10*3/uL (1.4-4.0); Lymphocytes % 11.3 % (21.2-54.2); Mean Corpuscular HGB Conc 31.1 GM/DL (32-36); Mean Corpuscular Volume 99.6 FL (87-102); Mean Platelet Volume 11.3 FL (9.6-12.0); Monocytes % 7.6 % (1.7-12.7); Neutrophils % 76.5 % (38.7-73.9); Platelet Count 201 T/CUMM (130-400); Red Blood Count 2.84 MC/CUMM (3.8-5.5); Red Cell Distribution Width 16.7 % (9.3-17.3); White Blood Count 7.3 T/CUMM (4-12)
[2019-12-17 05:24] LABS: Elliptocytes Few; Hypochromasia 1+; Microcytosis Slight; Platelet Estimate Adequate
[2019-12-17 05:30] LABS: Bilirubin,Total 1.2 MG/DL (0.2-1.0); Calcium 8.9 MG/DL (8.5-10.1); Osmolality,Calculated 284.4 MOS/KG (273-304); Total Protein 5.6 G/DL (6.4-8.3)
[2019-12-17] MEDS: LEFLUNOMIDE 10 MG TABLET PO SCH (09:10)
[2019-12-17] MEDS: APIXABAN 2.5 MG TABLET PO SCH ×2 (09:11→20:55)
[2019-12-17] MEDS: ISOSORBIDE MONONITRATE 30 MG TABLET PO SCH (09:11)
[2019-12-17] MEDS: MEXILETINE 150 MG CAPSULE PO SCH ×3 (09:11→17:45)
[2019-12-17] MEDS: ASPIRIN EC 81 MG TABLET PO SCH (09:11)
[2019-12-17] MEDS: LEVOTHYROXINE 88 MCG TABLET PO SCH (09:11)
[2019-12-17] MEDS: METOPROLOL TARTRATE 100 MG TABLET PO SCH ×2 (09:11→20:55)
[2019-12-17] MEDS: TICAGRELOR 90 MG TABLET PO SCH ×2 (09:11→20:55)
[2019-12-17] MEDS: AMIODARONE 200 MG TABLET PO SCH ×2 (09:11→20:55)
[2019-12-17] MEDS: DOCUSATE SODIUM 100 MG CAPSULE PO SCH ×2 (09:11→20:55)
[2019-12-17] MEDS: MULTIVITAMIN (CENTRUM) TABLET PO SCH (09:11)
[2019-12-17] MEDS: LOPERAMIDE 1 MG/7.5 ML 30 ML BOTTLE PO SCH ×2 (09:12→20:55)
[2019-12-17] MEDS: AZITHROMYCIN 250 MG TABLET PO SCH (09:12)
[2019-12-17] MEDS: PANTOPRAZOLE 40 MG TABLET PO SCH (09:12)
[2019-12-17] MEDS: POTASSIUM CHLORIDE 10 MEQ TABLET PO SCH ×2 (09:12→20:55)
[2019-12-17] MEDS: FUROSEMIDE 40 MG TABLET PO SCH (09:12)
[2019-12-17] MEDS: SIMVASTATIN 20 MG TABLET PO SCH (20:55)
[2019-12-17] MEDS: CYCLOBENZAPRINE 10 MG TABLET PO PRN (20:55)
[2019-12-17] MEDS: MIRTAZAPINE 15 MG TABLET PO SCH (20:55)
[2019-12-18] MEDS: cefTRIAXone 1,000 MG in SYRINGE 1 EACH IV SCH (00:13)
[2019-12-18] MEDS: SODIUM CHLOR 0.9% KCL 20 MEQ 20 MEQ/1,000 ML BAG IV SCH (01:39)
[2019-12-18 05:54] LABS: Basophils % 0.5 % (0.0-0.8); Eosinophils # 0.2 10*3/uL (0.0-0.87); Eosinophils % 2.6 % (0.00-10.9); Hematocrit 28.4 VOL% (42.0-52.0); Hemoglobin 8.8 GM/DL (14.0-18.0); Immature Granulocytes % 1.2 %; Immature Granulocytes Absolute 0.09 #; Lymphocytes # 1.2 10*3/uL (1.4-4.0); Lymphocytes % 16.5 % (21.2-54.2); Mean Corpuscular Volume 99.3 FL (87-102); Mean Platelet Volume 10.9 FL (9.6-12.0); Neutrophils % 71.2 % (38.7-73.9); Platelet Count 217 T/CUMM (130-400); Red Blood Count 2.86 MC/CUMM (3.8-5.5); Red Cell Distribution Width 16.7 % (9.3-17.3); White Blood Count 7.4 T/CUMM (4-12)
[2019-12-18 06:44] LABS: Albumin 2.1 G/DL (3.4-5.0); Bilirubin,Total 0.5 MG/DL (0.2-1.0); Calcium 8.7 MG/DL (8.5-10.1); Osmolality,Calculated 281.5 MOS/KG (273-304); Total Protein 5.8 G/DL (6.4-8.3)
[2019-12-18] MEDS ORDERED: CEFUROXIME 500 MG TABLET PO SCH (09:00)
[2019-12-18] MEDS: LEVOTHYROXINE 88 MCG TABLET PO SCH (09:32)
[2019-12-18] MEDS: APIXABAN 2.5 MG TABLET PO SCH (09:32)
[2019-12-18] MEDS: TICAGRELOR 90 MG TABLET PO SCH (09:33)
[2019-12-18] MEDS: AMIODARONE 200 MG TABLET PO SCH (09:33)
[2019-12-18] MEDS: POTASSIUM CHLORIDE 10 MEQ TABLET PO SCH (09:33)
[2019-12-18] MEDS: LEFLUNOMIDE 10 MG TABLET PO SCH (09:33)
[2019-12-18] MEDS: FUROSEMIDE 40 MG TABLET PO SCH (09:34)
[2019-12-18] MEDS: ISOSORBIDE MONONITRATE 30 MG TABLET PO SCH (09:34)
[2019-12-18] MEDS: ASPIRIN EC 81 MG TABLET PO SCH (09:35)
[2019-12-18] MEDS: PANTOPRAZOLE 40 MG TABLET PO SCH (09:35)
[2019-12-18] MEDS: MULTIVITAMIN (CENTRUM) TABLET PO SCH (09:35)
[2019-12-18] MEDS: METOPROLOL TARTRATE 100 MG TABLET PO SCH (09:36)
[2019-12-18] MEDS: DOCUSATE SODIUM 100 MG CAPSULE PO SCH (09:36)
[2019-12-18] MEDS: LOPERAMIDE 1 MG/7.5 ML 30 ML BOTTLE PO SCH (09:37)
[2019-12-18] MEDS: MEXILETINE 150 MG CAPSULE PO SCH (09:45)
[2019-12-18 11:49] VITALS: BP 111/52
== END 2019-12-18 13:31 | disposition home health service (06) | DRG 689 ==
LOC: EDUNIT# → EDBD → N.ED 19:25 → N.EDINP 19:25 → N.TELES 22:12
PROVIDERS: ADMIT Family Medicine; ATTEND Family Medicine

== ENCOUNTER 2021-04-06 06:54 | Inpatient (IN) ==
[2021-04-06] MEDS ORDERED: ONDANSETRON 4 MG/2 ML VIAL IV STA (07:42)
[2021-04-06] MEDS ORDERED: SODIUM CHLORIDE 0.9% 1,000 ML IV STA (07:42)
[2021-04-06] MEDS ORDERED: LOPERAMIDE 2 MG CAPSULE PO STA (07:42)
[2021-04-06 08:11] LABS: Basophils # 0.1 10*3/uL (0.0-0.2); Basophils % 0.5 % (0.0-0.8); Eosinophils # 0.2 10*3/uL (0.0-0.87); Eosinophils % 1.9 % (0.00-10.9); Hematocrit 23.1 VOL% (42.0-52.0); Hemoglobin 6.8 GM/DL (14.0-18.0); Immature Granulocytes % 1.1 %; Immature Granulocytes Absolute 0.11 #; Lymphocytes # 1.9 10*3/uL (1.4-4.0); Lymphocytes % 19.2 % (21.2-54.2); Mean Corpuscular HGB Conc 29.4 GM/DL (32-36); Mean Corpuscular Volume 108.5 FL (87-102); Monocytes % 7.5 % (1.7-12.7); NRBC # 0.09 10*3/uL; Neutrophils % 69.8 % (38.7-73.9); Platelet Count 199 T/CUMM (130-400); Red Blood Count 2.13 MC/CUMM (3.8-5.5); White Blood Count 9.9 T/CUMM (4-12)
[2021-04-06] MEDS ORDERED: ONDANSETRON 4 MG/2 ML VIAL IV PRN (08:26)
[2021-04-06] MEDS ORDERED: SODIUM CHLORIDE 0.9% 1,000 ML IV PRN (08:27)
[2021-04-06] MEDS ORDERED: SODIUM CHLORIDE 0.9% 1,000 ML IV SCH (08:30)
[2021-04-06 08:34] LABS: Albumin 1.9 G/DL (3.4-5.0); Bilirubin,Total 0.6 MG/DL (0.20-1.00); Calcium 8.4 MG/DL (8.5-10.1); Osmolality,Calculated 288.3 MOS/KG (273-304); Potassium 3.2 MMOL/L (3.5-5.1); Total Protein 5.1 G/DL (6.4-8.2)
[2021-04-06] MEDS ORDERED: PANTOPRAZOLE 40 MG TABLET PO SCH (09:00)
[2021-04-06] MEDS: DOCUSATE SODIUM 100 MG CAPSULE PO SCH ×2 (10:37→21:00)
[2021-04-06 10:45] LABS: Bacteria,Urine Occasional /HPF (Few); Bilirubin,Urine Negative (Negative); Blood, Urine Negative (Negative); Glucose,Urine (UA) Negative (Negative); Hyaline Casts,Urine 35 /LPF (0-3); Ketones,Urine Negative (Negative); Mucus,Urine Occasional /LPF (Occasional); Nitrite,Urine Positive (Negative); Protein,Urine 30 MG/DL; Squamous Epithelial Cell,Urine Occasional /HPF (0-10); Urine Appearance CLEAR (Clear); Urine Color Yellow (Yellow); Urine Specific Gravity 1.013 (1.001-1.035); Urine Urobilinogen < 2.0 EU/DL (<2.0)
[2021-04-06] MEDS ORDERED: NITROGLYCERIN SL 0.4 MG TABLET SL PRN (15:16)
[2021-04-06] MEDS: SODIUM CHLOR 0.9% KCL 20 MEQ 20 MEQ/1,000 ML BAG IV SCH ×2 (17:28→22:01)
[2021-04-06] MEDS: MEXILETINE 150 MG CAPSULE PO SCH (17:47)
[2021-04-06] MEDS: POTASSIUM CHLORIDE RIDER 10 MEQ/100 ML PREMIX IV SCH (22:06)
[2021-04-06] MEDS: cefTRIAXone 1,000 MG in SODIUM CHLORIDE 0.9% 100 ML IV SCH (22:07)
[2021-04-06] MEDS: MIRTAZAPINE 15 MG TABLET PO SCH (22:09)
[2021-04-06] MEDS: AMIODARONE 200 MG TABLET PO SCH (22:10)
[2021-04-06] MEDS: PANTOPRAZOLE 40 MG TABLET PO SCH (22:10)
[2021-04-06] MEDS: METOPROLOL TARTRATE 50 MG TABLET PO SCH (22:10)
[2021-04-06] MEDS: SIMVASTATIN 20 MG TABLET PO SCH (22:10)
[2021-04-07] MEDS: POTASSIUM CHLORIDE RIDER 10 MEQ/100 ML PREMIX IV SCH
[2021-04-07 05:38] LABS: Basophils # 0.1 10*3/uL (0.0-0.2); Basophils % 0.7 % (0.0-0.8); Eosinophils # 0.2 10*3/uL (0.0-0.87); Eosinophils % 2.6 % (0.00-10.9); Immature Granulocytes % 1.5 %; Immature Granulocytes Absolute 0.12 #; Lymphocytes # 1.5 10*3/uL (1.4-4.0); Lymphocytes % 18.5 % (21.2-54.2); Mean Corpuscular HGB Conc 30.6 GM/DL (32-36); Mean Corpuscular Volume 99.1 FL (87-102); Monocytes % 7.3 % (1.7-12.7); NRBC # 0.09 10*3/uL; Neutrophils % 69.4 % (38.7-73.9); Platelet Count 151 T/CUMM (130-400); Red Blood Count 3.33 MC/CUMM (3.8-5.5); Red Cell Distribution Width 20.5 % (9.3-17.3); White Blood Count 8.1 T/CUMM (4-12)
[2021-04-07 05:39] LABS: Hemoglobin 10.1 GM/DL (14.0-18.0)
[2021-04-07] MEDS: LEVOTHYROXINE 88 MCG TABLET PO SCH (05:52)
[2021-04-07 06:07] LABS: Albumin 1.8 G/DL (3.4-5.0); Bilirubin,Total 0.4 MG/DL (0.20-1.00); Calcium 7.7 MG/DL (8.5-10.1); Osmolality,Calculated 285.3 MOS/KG (273-304); Potassium 3.8 MMOL/L (3.5-5.1); Thyroid Stimulating Hormone 9.63 uIU/ml (0.358-3.74); Total Protein 4.5 G/DL (6.4-8.2)
[2021-04-07] MEDS ORDERED: GLUCAGON 1 MG VIAL IM PRN (06:54)
[2021-04-07] MEDS: DEXTROSE 50% 25 GM/50 ML SYRINGE IV PRN ×2 (07:06→15:59)
[2021-04-07] MEDS: ISOSORBIDE MONONITRATE 30 MG TABLET PO SCH (08:23)
[2021-04-07] MEDS: LEFLUNOMIDE 10 MG TABLET PO SCH (08:23)
[2021-04-07] MEDS: FUROSEMIDE 40 MG TABLET PO SCH (08:23)
[2021-04-07] MEDS: ASPIRIN EC 81 MG TABLET PO SCH (08:23)
[2021-04-07] MEDS: DOCUSATE SODIUM 100 MG CAPSULE PO SCH ×2 (08:23→20:38)
[2021-04-07] MEDS: PANTOPRAZOLE 40 MG TABLET PO SCH ×2 (08:23→20:39)
[2021-04-07] MEDS: AMIODARONE 200 MG TABLET PO SCH ×2 (08:23→20:38)
[2021-04-07] MEDS: MEXILETINE 150 MG CAPSULE PO SCH ×3 (08:24→17:05)
[2021-04-07] MEDS: METOPROLOL TARTRATE 50 MG TABLET PO SCH ×2 (10:12→20:38)
[2021-04-07] MEDS: SODIUM CHLOR 0.9% KCL 20 MEQ 20 MEQ/1,000 ML BAG IV SCH (10:39)
[2021-04-07] MEDS: DEXT 5% NACL 0.45% KCL 20 MEQ 20 MEQ/1,000 ML BAG IV SCH (16:00)
[2021-04-07] MEDS: MIRTAZAPINE 15 MG TABLET PO SCH (20:38)
[2021-04-07] MEDS: SIMVASTATIN 20 MG TABLET PO SCH (20:38)
[2021-04-07] MEDS: cefTRIAXone 1,000 MG in SODIUM CHLORIDE 0.9% 100 ML IV SCH (20:40)
[2021-04-08] MEDS: DEXT 5% NACL 0.45% KCL 20 MEQ 20 MEQ/1,000 ML BAG IV SCH ×3 (01:40→21:36)
[2021-04-08] MEDS: LEVOTHYROXINE 88 MCG TABLET PO SCH (06:20)
[2021-04-08] MEDS: ISOSORBIDE MONONITRATE 30 MG TABLET PO SCH (09:45)
[2021-04-08] MEDS: LEFLUNOMIDE 10 MG TABLET PO SCH (09:45)
[2021-04-08] MEDS: PANTOPRAZOLE 40 MG TABLET PO SCH ×2 (09:46→20:41)
[2021-04-08] MEDS: MEXILETINE 150 MG CAPSULE PO SCH ×3 (09:46→17:13)
[2021-04-08] MEDS: METOPROLOL TARTRATE 50 MG TABLET PO SCH ×2 (09:46→20:40)
[2021-04-08] MEDS: AMIODARONE 200 MG TABLET PO SCH ×2 (09:46→20:41)
[2021-04-08] MEDS: FUROSEMIDE 40 MG TABLET PO SCH (09:47)
[2021-04-08] MEDS: ASPIRIN EC 81 MG TABLET PO SCH (10:29)
[2021-04-08] MEDS: DOCUSATE SODIUM 100 MG CAPSULE PO SCH ×2 (10:29→20:44)
[2021-04-08] MEDS: SIMVASTATIN 20 MG TABLET PO SCH (20:40)
[2021-04-08] MEDS: MIRTAZAPINE 15 MG TABLET PO SCH (20:41)
[2021-04-09] MEDS: cefTRIAXone 1,000 MG in SODIUM CHLORIDE 0.9% 100 ML IV SCH ×2 (01:21→22:35)
[2021-04-09 05:56] LABS: Basophils % 0.5 % (0.0-0.8); Eosinophils # 0.4 10*3/uL (0.0-0.87); Eosinophils % 5.1 % (0.00-10.9); Hematocrit 32.5 VOL% (42.0-52.0); Hemoglobin 9.9 GM/DL (14.0-18.0); Immature Granulocytes % 1.3 %; Immature Granulocytes Absolute 0.11 #; Lymphocytes # 1.1 10*3/uL (1.4-4.0); Lymphocytes % 12.6 % (21.2-54.2); Mean Corpuscular HGB Conc 30.5 GM/DL (32-36); Mean Corpuscular Volume 101.6 FL (87-102); Mean Platelet Volume 10.8 FL (9.6-12.0); NRBC # 0.02 10*3/uL; Neutrophils % 73.5 % (38.7-73.9); Platelet Count 135 T/CUMM (130-400); Red Cell Distribution Width 20.8 % (9.3-17.3); White Blood Count 8.4 T/CUMM (4-12)
[2021-04-09] MEDS: LEVOTHYROXINE 88 MCG TABLET PO SCH (06:16)
[2021-04-09] MEDS: AMIODARONE 200 MG TABLET PO SCH ×2 (08:23→22:28)
[2021-04-09] MEDS: ISOSORBIDE MONONITRATE 30 MG TABLET PO SCH (08:24)
[2021-04-09] MEDS: LEFLUNOMIDE 10 MG TABLET PO SCH (08:24)
[2021-04-09] MEDS: METOPROLOL TARTRATE 50 MG TABLET PO SCH ×2 (08:24→22:29)
[2021-04-09] MEDS: MEXILETINE 150 MG CAPSULE PO SCH ×3 (08:24→16:30)
[2021-04-09] MEDS: ASPIRIN EC 81 MG TABLET PO SCH (08:25)
[2021-04-09] MEDS: FUROSEMIDE 40 MG TABLET PO SCH (08:25)
[2021-04-09] MEDS: PANTOPRAZOLE 40 MG TABLET PO SCH ×2 (08:25→22:28)
[2021-04-09] MEDS: ACETAMINOPHEN 325 MG TABLET PO PRN ×2 (08:29→22:28)
[2021-04-09] MEDS: DEXT 5% NACL 0.45% KCL 20 MEQ 20 MEQ/1,000 ML BAG IV SCH (09:47)
[2021-04-09] MEDS: DOCUSATE SODIUM 100 MG CAPSULE PO SCH ×2 (09:53→22:30)
[2021-04-09] MEDS: LOPERAMIDE 2 MG CAPSULE PO PRN ×2 (13:43→22:29)
[2021-04-09] MEDS: SIMVASTATIN 20 MG TABLET PO SCH (22:28)
[2021-04-09] MEDS: MIRTAZAPINE 15 MG TABLET PO SCH (22:28)
[2021-04-10] MEDS: LEVOTHYROXINE 88 MCG TABLET PO SCH (06:07)
[2021-04-10] MEDS: DEXT 5% NACL 0.45% KCL 20 MEQ 20 MEQ/1,000 ML BAG IV SCH ×5 (09:24→23:18)
[2021-04-10] MEDS: PANTOPRAZOLE 40 MG TABLET PO SCH ×2 (09:26→21:50)
[2021-04-10] MEDS: ISOSORBIDE MONONITRATE 30 MG TABLET PO SCH (09:26)
[2021-04-10] MEDS: ASPIRIN EC 81 MG TABLET PO SCH (09:26)
[2021-04-10] MEDS: MEXILETINE 150 MG CAPSULE PO SCH ×3 (09:27→18:17)
[2021-04-10] MEDS: METOPROLOL TARTRATE 50 MG TABLET PO SCH ×2 (09:27→21:51)
[2021-04-10] MEDS: AMIODARONE 200 MG TABLET PO SCH ×2 (09:27→21:51)
[2021-04-10 09:29] LABS: Basophils # 0.1 10*3/uL (0.0-0.2); Basophils % 0.8 % (0.0-0.8); Eosinophils # 0.6 10*3/uL (0.0-0.87); Eosinophils % 6.7 % (0.00-10.9); Hemoglobin 9.7 GM/DL (14.0-18.0); Immature Granulocytes % 1.4 %; Immature Granulocytes Absolute 0.12 #; Lymphocytes # 0.8 10*3/uL (1.4-4.0); Mean Corpuscular HGB Conc 30.3 GM/DL (32-36); Mean Corpuscular Volume 100.6 FL (87-102); Mean Platelet Volume 10.3 FL (9.6-12.0); Monocytes % 7.9 % (1.7-12.7); NRBC # 0.02 10*3/uL; Neutrophils % 74.2 % (38.7-73.9); Platelet Count 132 T/CUMM (130-400); Red Blood Count 3.18 MC/CUMM (3.8-5.5); Red Cell Distribution Width 20.8 % (9.3-17.3); White Blood Count 8.8 T/CUMM (4-12)
[2021-04-10] MEDS: DOCUSATE SODIUM 100 MG CAPSULE PO SCH ×2 (10:28→21:50)
[2021-04-10] MEDS ORDERED: propofoL 200 MG/20 ML VIAL IV ONE (12:38)
[2021-04-10] MEDS ORDERED: ETOMIDATE 20 MG/10 ML VIAL IV ONE (12:38)
[2021-04-10] MEDS ORDERED: LIDOCAINE 2% 5 ML VIAL ONE (12:38)
[2021-04-10] MEDS ORDERED: PHENYLEPHRINE 1 MG/10 ML SYRINGE IV ONE (12:50)
[2021-04-10] MEDS: LEFLUNOMIDE 10 MG TABLET PO SCH (16:19)
[2021-04-10] MEDS: FUROSEMIDE 40 MG TABLET PO SCH (16:20)
[2021-04-10] MEDS: LACTATED RINGERS 1,000 ML IV SCH (16:21)
[2021-04-10] MEDS: cefTRIAXone 1,000 MG in SODIUM CHLORIDE 0.9% 100 ML IV SCH (21:48)
[2021-04-10] MEDS: MIRTAZAPINE 15 MG TABLET PO SCH (21:49)
[2021-04-10] MEDS: SIMVASTATIN 20 MG TABLET PO SCH (21:49)
[2021-04-10] MEDS: DESITIN 4OZ/NYSTATIN 15 GRAM MIXTURE PASTE TOP SCH (21:50)
[2021-04-10] MEDS: LOPERAMIDE 2 MG CAPSULE PO PRN (21:57)
[2021-04-11] MEDS: LEVOTHYROXINE 88 MCG TABLET PO SCH (05:25)
[2021-04-11 05:34] LABS: Basophils # 0.1 10*3/uL (0.0-0.2); Basophils % 0.6 % (0.0-0.8); Eosinophils # 0.4 10*3/uL (0.0-0.87); Eosinophils % 4.6 % (0.00-10.9); Hematocrit 33.6 VOL% (42.0-52.0); Hemoglobin 10.4 GM/DL (14.0-18.0); Immature Granulocytes % 1.6 %; Immature Granulocytes Absolute 0.15 #; Lymphocytes % 10.3 % (21.2-54.2); Mean Corpuscular Volume 100.9 FL (87-102); Mean Platelet Volume 9.7 FL (9.6-12.0); Monocytes % 10.1 % (1.7-12.7); Neutrophils % 72.8 % (38.7-73.9); Platelet Count 128 T/CUMM (130-400); Red Blood Count 3.33 MC/CUMM (3.8-5.5); Red Cell Distribution Width 20.9 % (9.3-17.3); White Blood Count 9.5 T/CUMM (4-12)
[2021-04-11 05:59] LABS: Albumin 1.4 G/DL (3.4-5.0); Bilirubin,Total 0.4 MG/DL (0.20-1.00); Calcium 7.7 MG/DL (8.5-10.1); Osmolality,Calculated 279.5 MOS/KG (273-304); Potassium 3.6 MMOL/L (3.5-5.1); Total Protein 4.5 G/DL (6.4-8.2)
[2021-04-11] MEDS: LACTATED RINGERS 1,000 ML IV SCH (08:28)
[2021-04-11 08:35] VITALS: BP 146/67
[2021-04-11] MEDS: MEXILETINE 150 MG CAPSULE PO SCH (08:52)
[2021-04-11] MEDS: PANTOPRAZOLE 40 MG TABLET PO SCH (08:52)
[2021-04-11] MEDS: METOPROLOL TARTRATE 50 MG TABLET PO SCH (08:52)
[2021-04-11] MEDS: FUROSEMIDE 40 MG TABLET PO SCH (08:52)
[2021-04-11] MEDS: ASPIRIN EC 81 MG TABLET PO SCH (08:52)
[2021-04-11] MEDS: LEFLUNOMIDE 10 MG TABLET PO SCH (08:52)
[2021-04-11] MEDS: ACETAMINOPHEN 325 MG TABLET PO PRN (08:53)
[2021-04-11] MEDS: AMIODARONE 200 MG TABLET PO SCH (08:53)
[2021-04-11] MEDS: ISOSORBIDE MONONITRATE 30 MG TABLET PO SCH (08:53)
[2021-04-11] MEDS: DOCUSATE SODIUM 100 MG CAPSULE PO SCH (08:54)
[2021-04-11] MEDS: DESITIN 4OZ/NYSTATIN 15 GRAM MIXTURE PASTE TOP SCH (08:54)
[2021-04-11] MEDS ORDERED: NYSTATIN 500,000 UNIT/5 ML UDCUP SWISH/SWAL SCH (09:00)
[2021-04-11] MEDS ORDERED: MAGNESIUM CHLORIDE 64 MG TABLET PO SCH (09:00)
[2021-04-11] MEDS ORDERED: INFLUENZA VIRUS VACCINE 0.5 ML SYRINGE IM ONE (10:20)
[2021-04-11] MEDS ORDERED: CEFUROXIME 500 MG TABLET PO SCH (21:00)
[2021-04-12] MEDS ORDERED: LEVOTHYROXINE 100 MCG TABLET PO SCH (06:30)
== END 2021-04-11 10:44 | disposition home health service (06) | DRG 378 ==
LOC: EDUNIT# → EDBD → N.ED 06:54 → N.EDINP 08:25 → N.5E 12:34
PROVIDERS: ADMIT Family Medicine; ATTEND Family Medicine

== ENCOUNTER 2021-04-18 10:58 | Observation (INO) ==
[2021-04-18] MEDS ORDERED: SODIUM CHLORIDE 0.9% 1,000 ML IV STA (11:51)
[2021-04-18 12:32] LABS: Basophils # 0.1 10*3/uL (0.0-0.2); Basophils % 1.3 % (0.0-0.8); Eosinophils # 0.3 10*3/uL (0.0-0.87); Eosinophils % 3.5 % (0.00-10.9); Hematocrit 35.3 VOL% (42.0-52.0); Hemoglobin 10.5 GM/DL (14.0-18.0); Immature Granulocytes % 1.1 %; Immature Granulocytes Absolute 0.08 #; Lymphocytes # 1.3 10*3/uL (1.4-4.0); Lymphocytes % 18.6 % (21.2-54.2); Mean Corpuscular HGB Conc 29.7 GM/DL (32-36); Mean Corpuscular Volume 102.9 FL (87-102); Monocytes % 8.7 % (1.7-12.7); Neutrophils % 66.8 % (38.7-73.9); Platelet Count 239 T/CUMM (130-400); Red Blood Count 3.43 MC/CUMM (3.8-5.5); White Blood Count 7.2 T/CUMM (4-12)
[2021-04-18 12:52] LABS: Albumin 1.8 G/DL (3.4-5.0); Bilirubin,Total 1.7 MG/DL (0.20-1.00); Calcium 8.3 MG/DL (8.5-10.1); Osmolality,Calculated 289.7 MOS/KG (273-304); Total Protein 5.6 G/DL (6.4-8.2)
[2021-04-18 15:19] LABS: Bacteria,Urine Occasional /HPF (Few); Bilirubin,Urine Negative (Negative); Blood, Urine Negative (Negative); Glucose,Urine (UA) Negative (Negative); Hyaline Casts,Urine 48 /LPF (0-3); Ketones,Urine Negative (Negative); Mucus,Urine Occasional /LPF (Occasional); Nitrite,Urine Negative (Negative); Protein,Urine 30 MG/DL; RBC,Urine 1 /HPF (0-4); Squamous Epithelial Cell,Urine Occasional /HPF (0-10); Urine Appearance CLEAR (Clear); Urine Color Yellow (Yellow); Urine Specific Gravity 1.013 (1.001-1.035); Urine Urobilinogen < 2.0 EU/DL (<2.0)
[2021-04-18] MEDS ORDERED: cefTRIAXone 1,000 MG in SODIUM CHLORIDE 0.9% 100 ML IV STA (15:56)
[2021-04-18] MEDS ORDERED: POTASSIUM CHLORIDE 20 MEQ TABLET PO STA (15:56)
[2021-04-18] MEDS ORDERED: ONDANSETRON 4 MG/2 ML VIAL IV PRN (20:53)
[2021-04-18] MEDS ORDERED: ACETAMINOPHEN 325 MG TABLET PO PRN (20:53)
[2021-04-18] MEDS: DOCUSATE SODIUM 100 MG CAPSULE PO SCH (22:20)
[2021-04-18] MEDS: SODIUM CHLORIDE 0.9% 1,000 ML IV SCH (22:20)
[2021-04-19] MEDS: SODIUM CHLORIDE 0.9% 1,000 ML IV SCH (05:15)
[2021-04-19] MEDS ORDERED: NITROGLYCERIN SL 0.4 MG TABLET SL PRN (07:33)
[2021-04-19] MEDS ORDERED: hydrOXYzine HCL 10 MG TABLET PO PRN (07:33)
[2021-04-19] MEDS ORDERED: AZITHROMYCIN INJ 500 MG in SODIUM CHLORIDE 0.9% 250 ML IV SCH (08:00)
[2021-04-19] MEDS ORDERED: POTASSIUM CHLORIDE INJ 20 MEQ in SODIUM CHLORIDE 0.9% 1,000 ML IV SCH (08:14)
[2021-04-19 08:18] VITALS: BP 112/54
[2021-04-19] MEDS ORDERED: SODIUM CHLOR 0.9% KCL 20 MEQ 20 MEQ/1,000 ML BAG IV SCH (08:30)
[2021-04-19] MEDS ORDERED: POTASSIUM CHLORIDE RIDER 10 MEQ/100 ML PREMIX IV SCH (08:30)
[2021-04-19] MEDS: DOCUSATE SODIUM 100 MG CAPSULE PO SCH (08:50)
[2021-04-19] MEDS ORDERED: METOPROLOL TARTRATE 50 MG TABLET PO SCH (09:00)
[2021-04-19] MEDS ORDERED: APIXABAN 2.5 MG TABLET PO SCH (09:00)
[2021-04-19] MEDS ORDERED: LEFLUNOMIDE 10 MG TABLET PO SCH (09:00)
[2021-04-19] MEDS ORDERED: FUROSEMIDE 40 MG TABLET PO SCH (09:00)
[2021-04-19] MEDS ORDERED: PANTOPRAZOLE 40 MG TABLET PO SCH (09:00)
[2021-04-19] MEDS ORDERED: ASPIRIN EC 81 MG TABLET PO SCH (09:00)
[2021-04-19] MEDS ORDERED: AMIODARONE 200 MG TABLET PO SCH (09:00)
[2021-04-19] MEDS ORDERED: POTASSIUM BICARB EFFERVESCENT 20 MEQ TAB.EFF PO SCH (09:00)
[2021-04-19] MEDS ORDERED: ISOSORBIDE MONONITRATE 30 MG TABLET PO SCH (09:00)
[2021-04-19] MEDS ORDERED: MAGNESIUM CHLORIDE 64 MG TABLET PO SCH (09:00)
[2021-04-19] MEDS ORDERED: cefTRIAXone 1,000 MG in SODIUM CHLORIDE 0.9% 100 ML IV SCH (16:00)
[2021-04-19] MEDS ORDERED: SIMVASTATIN 20 MG TABLET PO SCH (21:00)
[2021-04-19] MEDS ORDERED: MIRTAZAPINE 15 MG TABLET PO SCH (21:00)
[2021-04-20] MEDS ORDERED: LEVOTHYROXINE 100 MCG TABLET PO SCH (06:30)
[2021-04-20] MEDS ORDERED: AZITHROMYCIN INJ 250 MG in SODIUM CHLORIDE 0.9% 250 ML IV SCH (08:00)
== END 2021-04-19 10:58 | disposition expired ==
LOC: EDBD → EDUNIT# → N.ED 10:58 → N.EDINP 10:58 → N.3E 04-19 01:15
PROVIDERS: ADMIT Family Medicine; ATTEND Family Medicine